=== PATIENT | male | born 1965 | race Hispanic/Latino ===

== ENCOUNTER 2016-12-06 02:02 | Inpatient (IN) | payer OTHER ==
[2016-12-06] MEDS ORDERED: DUONEB 0.5 MG-3 MG/3 ML SOLN IH ONE (02:21)
[2016-12-06 02:50] LABS: Basophils % (Auto) 1.2 % (0.0-1.8); Eosinophils % (Auto) 3.2 % (0.0-4.3); Hematocrit 42.3 % (35.5-45.6); Hemoglobin 14.1 gm/dl (11.8-15.2); Mean Corpuscular HGB Conc 33 % (32-34); Mean Corpuscular Hemoglobin 31 pg (28-32); Mean Corpuscular Volume 92 fl (84-94); Platelet Count 124 K/mm3 (140-440); Red Cell Distribution Width 15.7 % (13.2-15.2); White Blood Count 7.5 K/mm3 (4.5-11.0)
[2016-12-06 03:05] LABS: Anion Gap 20 mmol/L; BUN/Creatinine Ratio 11.81; Blood Urea Nitrogen 13 mg/dL (9-20); Calcium 9.2 mg/dL (8.4-10.2); Carbon Dioxide 22 mmol/L (22-30); Glucose 142 mg/dL (75-100); Potassium 3.3 mmol/L (3.6-5.0); Sodium 144 mmol/L (137-145)
[2016-12-06] MEDS ORDERED: BABY ASPIRIN PO ONE (07:21)
[2016-12-06] MEDS ORDERED: NITROSTAT SL PRN (07:21)
--- NOTE | 2016-12-06 07:33 | Emergency Department Report ---
ED Chest Pain HPI - General Chief Complaint: Chest Pain Stated Complaint: CHEST PAIN Time Seen by Provider: 12/06/16 07:14 Source: patient Mode of arrival: Wheelchair Limitations: No Limitations - History of Present Illness Initial Comments: 51-year-old male presents to the emergency department complaining of chest pain. Patient states he began having chest pain yesterday afternoon. He describes pressure sensation in the middle of his chest. He reports associated shortness of breath, nausea, and lightheadedness. He denies passing out. Patient also states that his legs have been swelling for the past 5 days. He states he has been out of his medication for approximately 2 weeks. Approximately one hour prior to my seeing the patient, he states that his chest pain became a lot worse and began radiating down his left arm. He continues to describe a pressure sensation. There are no other complaints. MD Complaint: chest pain -: Gradual, days(s) (1) Onset: during exertion Pain Location: substernal Pain Radiation: LUE Severity: moderate Severity scale (0 -10): 7 Quality: pressure Consistency: constant Improves With: nothing Worsens With: nothing re: nausea, dyspnea Treatments Prior to Arrival: none Aspirin use within the Past 7 Days: (0) No - Related Data Allergies Allergy/AdvReac Type Severity Reaction Status Date / Time No Known Allergies Allergy Verified 12/06/16 02:13 BLANE score - Blane Score Age > 65: (0) No Aspirin use within the Past 7 Days: (0) No 3 or more CAD Risk Factors: (1) Yes 2 or more Angina events in past 24 hrs: (1) Yes Known CAD with more than 50% Stenosis: (1) Yes Elevated Cardiac Markers: (0) No ST Deviation Greater than 0.5mm: (0) No BLANE Score: 3 ED Review of Systems ROS: Stated complaint: CHEST PAIN Other details as noted in HPI Comment: All other systems reviewed and negative Respiratory: shortness of breath Cardiovascular: chest pain, dyspnea on exertion, edema Gastrointestinal: nausea ED Past Medical Hx - Past Medical History Previous Medical History?: Yes Hx Hypertension: Yes Hx Congestive Heart Failure: Yes Hx Liver Disease: Yes Hx Psychiatric Treatment: Yes - Surgical History Past Surgical History?: Yes Hx Pacemaker: Yes - Family History Family history: no significant - Social History Smoking Status: Current Every Day Smoker Substance Use Type: Alcohol ED Physical Exam - General Limitations: No Limitations General appearance: alert, in distress (mild distress secondary to pain) - Head Head exam: Present: atraumatic, normocephalic - Eye Eye exam: Present: normal appearance, PERRL, EOMI - ENT ENT exam: Present: normal exam, normal orophraynx, mucous membranes moist - Neck Neck exam: Present: normal inspection, full ROM. Absent: tenderness - Respiratory Respiratory exam: Present: normal lung sounds bilaterally. Absent: respiratory distress - Cardiovascular Cardiovascular Exam: Present: normal rhythm, tachycardia, normal heart sounds - GI/Abdominal GI/Abdominal exam: Present: soft, normal bowel sounds. Absent: distended, tenderness - Extremities Exam Extremities exam: Present: normal inspection, full ROM, pedal edema (2+ pitting edema bilateral lower extremities to the pelvis. Scrotal edema noted.). Absent : tenderness - Back Exam Back exam: Present: normal inspection, full ROM. Absent: tenderness - Neurological Exam Neurological exam: Present: alert, oriented X3. Absent: motor sensory deficit - Skin Skin exam: Present: warm, dry, intact ED Course Vital Signs 12/06/16 12/06/16 12/06/16 02:13 02:40 02:53 Temperature 98.7 F Pulse Rate 107 H Pulse Rate [ 102 H 98 H Anterior Bilateral Throughout] Respiratory 22 Rate Respiratory 24 22 Rate [Anterior Bilateral Throughout] Blood Pressure 151/109 Blood Pressure [Left] O2 Sat by Pulse 95 Oximetry 12/06/16 12/06/16 12/06/16 04:46 04:55 04:57 Temperature 97.4 F L Pulse Rate 102 H 100 H Pulse Rate [ Anterior Bilateral Throughout] Respiratory 28 H 18 Rate Respiratory Rate [Anterior Bilateral Throughout] Blood Pressure 154/105 Blood Pressure [Left] O2 Sat by Pulse 94 96 97 Oximetry 12/06/16 12/06/16 12/06/16 05:00 05:30 06:00 Temperature Pulse Rate 102 H 101 H 101 H Pulse Rate [ Anterior Bilateral Throughout] Respiratory 18 13 22 Rate Respiratory Rate [Anterior Bilateral Throughout] Blood Pressure 154/107 155/110 155/104 Blood Pressure [Left] O2 Sat by Pulse 95 91 91 Oximetry 12/06/16 12/06/16 12/06/16 06:30 07:15 08:22 Temperature 98.1 F Pulse Rate 100 H 104 H 106 H Pulse Rate [ Anterior Bilateral Throughout] Respiratory 19 22 20 Rate Respiratory Rate [Anterior Bilateral Throughout] Blood Pressure 155/105 Blood Pressure 145/103 166/113 [Left] O2 Sat by Pulse 97 95 95 Oximetry 12/06/16 08:23 Temperature Pulse Rate 106 H Pulse Rate [ Anterior Bilateral Throughout] Respiratory Rate Respiratory Rate [Anterior Bilateral Throughout] Blood Pressure Blood Pressure [Left] O2 Sat by Pulse Oximetry ED Medical Decision Making - Lab Data Result diagrams: 12/06/16 02:27 12/06/16 02:27 - EKG Data -: EKG Interpreted by Me EKG shows normal: sinus rhythm, intervals, QRS complexes Rate: tachycardia - EKG Data When compared to previous EKG there are: previous EKG unavailable Interpretation: nonspecific ST-T wave eleno, other (left axis deviation) - Radiology Data Radiology results: report reviewed, image reviewed Chest x-ray shows cardiomegaly with mild CHF. - Medical Decision Making Lab and imaging results reviewed and discussed the patient. Patient reports pain is improved medication. Cardiology will be consulted and the patient is to be admitted by the hospitalist. - Differential Diagnosis CHF, ACS, AMI Critical care attestation.: If time is entered above; I have spent that time in minutes in the direct care of this critically ill patient, excluding procedure time. ED Disposition Clinical Impression: Acute exacerbation of CHF (congestive heart failure) Qualifiers: Congestive heart failure type: systolic Qualified Code(s): I50.23 - Acute on chronic systolic (congestive) heart failure Disposition: OP ADMITTED IP TO THIS HOSP Is pt being admited?: Yes Condition: Stable Referrals: PRIMARY CARE, [Primary Care Provider] - 3-5 Days Time of Disposition: 08:36
--- NOTE | 2016-12-06 07:51 | Admit Criteria Form ---
Admission Criteria Documentation: CHEST PAIN Clinical Indications for Admission to Inpatient Care (Place 'X' for any and all applicable criteria): Admission is indicated for chest pain and ANY ONE of the following(1)(2)(3)(4)(5 ): [ ]I. Angina with acute coronary syndrome (Also use Myocardial Infarction or Angina guideline) [ ]II. Hemodynamic instability [ x]III. Angina needing acute intervention as indicated by ALL of the following (11)(12): [ x]a) Unstable angina is present as indicated by angina that is ANY ONE of the following: [x ]i) New onset [ ]ii) Nocturnal [ ]iii) Prolonged at rest [ ]iv) Progressive [ x]b) Angina warrants acute intervention as indicated by ANY ONE of the following: [ ]i) Recurrent angina (e.g, not responding as previously to treatment) [ ]ii) Angina at rest or with low-level activities despite initial medical therapy [ ]iii) New or presumably new ST-segment depression on ECG [ ]iv) Signs or symptoms of heart failure (eg, dyspnea, pulmonary edema) [ ]v) New or worsening mitral regurgitation [ ]vi) Hemodynamic instability [ ]vii) Dangerous arrhythmia (eg, sustained ventricular tachycardia) [ ]viii) History of percutaneous coronary intervention within 6 months [ ]ix) History of coronary artery bypass graft surgery [x ]x) BLANE risk score of 2 or greater[A] [ ]xi) History of Diabetes(14) [ ]xii) High-risk cardiac ischemia findings on noninvasive testing (e.g, echocardiogram, treadmill testing, nuclear scan) [ ]xiii) Chronic renal insufficiency (ie, estimated GFR less than 60 mL/min/1.732m) [ ]xiv) Left ventricular ejection fraction less than 40% [ ]IV. Evidence of GA (eg, cardiac biomarkers positive, ST-segment elevation on ECG) also use Myocardial Infarction Criteria Form. [ ]V. Pulmonary edema [ ]. Respiratory distress [ ]VII. Chest pain indicative of serious diagnosis other than coronary artery disease (eg, aortic dissection) [ ]VIII. Contraindications and/or Inappropriate clinical situations for Observational Care in patients with Chest Pain, when ANY ONE of the following is required: [ ]a) Patient with risk factor for pulmonary embolism, acute coronary syndrome and myocardial infarction (18) [ ]b) Patient with Pulmonary embolism require an average LOS of 4.3 days, therefore emergency department observation management is inappropriate 18,23 [ ]c) Painful condition/s in the elderly, have the highest rate of recidivism after emergency department observation management (10.8%) 20,21,22 [ ]d) Elevated cardiac biomarker requires intensive and exhaustive care (19) [ ]IX. General contraindications and/or Inappropriate clinical situations for Observational Care in patients with Chest Pain, when ANY ONE of the following is required: [ ]a) Prediction of prolongation of LOS based on ANY ONE of the following may be considered as a contraindication for observational care 2, 3, 4, 5, 6, 7, 8, 9, 10, 11 [ ]i) Age > 65 yrs. [ ]ii) Patient arriving by ambulance [ ]iii) Patient with high acuity [ ]iv) Patient requiring vital sign monitoring [ ]v) Patient on IV medication [ ]b) Systolic blood pressures 180mmHg 3,12 [ ]c) Patient with altered mental status including delirium and other alteration of consciousness, (3) [ ]d) Patient whose discharge disposition will be to a nursing home home or rehabilitation home should not be managed in Emergency Department Observation Unit. CMS rule requires 3 days hospital stay before such placement. 3,13 [ ]e) Patient with failure to thrive due to broad array of etiologies 3,16,17 [ ]f) Inability to ambulate 3,14 Extended stay beyond goal length of stay may be needed for (1)(28): [ ]a) Specific condition diagnosed after evaluation (eg, pulmonary embolism, aortic dissection) [ ]b) Unstable angina [ ]c) Continued suspicion of acute coronary syndrome with inability to complete needed cardiac evaluation (eg, patient clinically unable to undergo stress testing) [ ]d) Myocardial infarction (Contents from ANGINA and CHEST PAIN clinical indications for admission to inpatient care have been integrated in this form) The original [employer] content created by [employer] has been revised. The portions of the content which have been revised are identified through the use of italic text or in bold, and [employer] [facility] has neither reviewed nor approved the modified material. All other unmodified content is copyright [employer]. Please see references footnoted in the original [employer] [facility] edition 2016 Admission Criteria Met: Yes
--- NOTE | 2016-12-06 07:54 | XRay Report ---
AP CHEST: HISTORY: Chest pain, difficulty in breathing No comparison. There is borderline heart size and pulmonary venous structures. A 2-lead pacemaker device is in place. The lungs are clear. No evidence for pneumonia, CHF or pneumothorax. IMPRESSION: Borderline to mild cardiomegaly and pulmonary venous congestion. Lungs clear.
[2016-12-06] MEDS ORDERED: MORPHINE IV ONE (08:11)
[2016-12-06] MEDS ORDERED: LASIX IV ONE (08:11)
[2016-12-06] MEDS ORDERED: PROVENTIL IH PRN (08:38)
[2016-12-06] MEDS ORDERED: ZOFRAN IV PRN (08:38)
[2016-12-06] MEDS ORDERED: DULCOLAX PR PRN (08:38)
[2016-12-06] MEDS ORDERED: MILK OF MAGNESIA PO PRN (08:38)
[2016-12-06] MEDS ORDERED: TYLENOL PO PRN (08:38)
[2016-12-06] MEDS ORDERED: K-DUR PO ONE (08:44)
[2016-12-06] MEDS: COREG PO SCH ×2 (10:00→21:16)
[2016-12-06] MEDS: PEPCID IV SCH ×2 (12:42→21:14)
[2016-12-06] MEDS: MORPHINE IV PRN ×3 (12:44→21:14)
[2016-12-06 13:17] LABS: Creatine Kinase MB 5.9 ng/mL (0.0-4.0)
[2016-12-06 13:34] LABS: Creatine Kinase 99 units/L (55-170)
[2016-12-06] MEDS: HEPARIN SUB-Q SCH ×2 (13:39→21:13)
--- NOTE | 2016-12-06 14:12 | Consultation ---
History of Present Illness Consult date: 12/06/16 Consult reason: congestive heart failure History of present illness: Patient is a 51yr old male who reports a history of coronary artery disease and dilated cardiomyopathy and is followed by [facility]. Patient reports a pacemaker insitu but a year ago had reached end of life. Patient reports he was told he is not a candidate for generator replacement. An echocardiogram done this admission shows a 4 chamber dilation, ejection fraction 10-15%. There was at least a moderate tricuspid regurgitation and severe pulmonary hypertension. He presents to the ED with complaints of chest pain, shortness of breath, lower extremity edema admitted with CHF exacerbation. Patient reports noncompliance with his medications. He also continues to smoke. A 12 lead ECG shows a sinus rhythm with nonspecific T wave abnormalities. Medications and Allergies Allergies Allergy/AdvReac Type Severity Reaction Status Date / Time No Known Allergies Allergy Verified 12/06/16 02:13 Active Meds: Active Medications Acetaminophen (Tylenol) 650 mg PO Q4H PRN PRN Reason: Pain MILD(1-3)/Fever >100.5/GURROLA Albuterol (Proventil) 2.5 mg IH Q3HRT PRN PRN Reason: Shortness Of Breath Bisacodyl (Dulcolax) 10 mg VT QDAY PRN PRN Reason: Constipation unrelieved by MOM Carvedilol (Coreg) 6.25 mg PO BID [facility] Last Admin: 12/06/16 10:00 Dose: 6.25 mg Famotidine (Pepcid) 20 mg IV BID [facility] Last Admin: 12/06/16 12:42 Dose: 20 mg Furosemide (Lasix) 40 mg IV BID@0600,1800 [facility] Heparin Sodium (Porcine) (Heparin) 5,000 unit SUB-Q Q12HR [facility] Last Admin: 12/06/16 13:39 Dose: 5,000 unit Magnesium Hydroxide (Milk Of Magnesia) 30 ml PO Q4H PRN PRN Reason: Constipation Morphine Sulfate (Morphine) 2 mg IV Q4H PRN PRN Reason: Pain, Moderate (4-6) Last Admin: 12/06/16 12:44 Dose: 2 mg Nitroglycerin (Nitrostat) 0.4 mg SL .Q5MIN PRN PRN Reason: Chest Pain Last Admin: 12/06/16 07:36 Dose: 0.4 mg Ondansetron HCl (Zofran) 4 mg IV Q8H PRN PRN Reason: N/V unrelieved by Reglan Physical Examination Vital Signs Temp Pulse Resp BP Pulse Ox 98.7 F 107 H 22 151/109 95 12/06/16 02:13 12/06/16 02:13 12/06/16 02:13 12/06/16 02:13 12/06/16 02:13 General appearance: no acute distress HEENT: Positive: PERRL Neck: Positive: trachea midline Cardiac: Positive: Reg Rate and Rhythm Results 12/06/16 02:27 12/06/16 02:27 Cardiac Enzymes 12/06/16 Range/Units 12:45 CK-MB (CK-2) 5.9 H (0.0-4.0) ng/mL Assessment and Plan Acute CHF exacerbation Hx of Dilated Cardiomyopathy EF 10-15% on echo this admission Hx of CAD Noncompliant with medications Tobacco abuse
--- NOTE | 2016-12-06 16:35 | History and Physical Report ---
History of Present Illness Date of examination: 12/06/16 Date of admission: 12/06/16 08:38 Chief complaint: Shortness of breath History of present illness: Patient's 51-year-old male with past medical history of coronary artery disease and ischemic cardiomyopathy EF 25% PER PT status post ICD unfortunately has been noncompliant with his medication had recently traveled to [place] and just returned and is currently homeless. He normally gets his care at [facility] and has had multiple coronary interventions and prior suicide [place] years ago. Patient presents to the ER with complaint of shortness of breath and chest pain which is a started the day prior to presentation. He describes as substernal and lasted 2-3 minutes. But also reports generalized leg swelling for the past 5 days. It was a neuropathy his medication almost 2 weeks ago. He does not recall the names of the medication. He reports dietary indiscretion. The chest pain he describes as a 5/4 over 10 in intensity. States that he does radiate down to his left arm. He describes as pressure in nature. Again he reports some shortness of breath and he is debilitated. He denies any chills denies any nausea or vomiting denies any diaphoresis denies any fever. ROS Constitutional: No fever, fatigue or weight loss. Skin: No rash. Eyes: No recent vision problems or eye pain. ENT: No congestion, ear pain, or sore throat. Endocrine: No thyroid problems. Cardiovascular: No chest pain. Respiratory: Shortness of breath but No cough, congestion, or wheezing. Gastrointestinal: No abdominal pain, nausea, vomiting, or diarrhea. Genitourinary: No dysuria. Musculoskeletal: No joint swelling but reports bilateral lower extremity swelling. Neurologic: No seizures. Hematologic: No unusual bruising or bleeding. Psychiatric: No psychiatric problems, hallucinations or depression. All other systems reviewed and otherwise negative. Past History Past Medical History: acute OR, CAD, hypertension, hyperlipidemia Past Surgical History: PTCA Social history: alcohol abuse, full code Family history: no significant family history Medications and Allergies Allergies Allergy/AdvReac Type Severity Reaction Status Date / Time No Known Allergies Allergy Verified 12/06/16 02:13 Active Meds: Active Medications Acetaminophen (Tylenol) 650 mg PO Q4H PRN PRN Reason: Pain MILD(1-3)/Fever >100.5/GURROLA Albuterol (Proventil) 2.5 mg IH Q3HRT PRN PRN Reason: Shortness Of Breath Bisacodyl (Dulcolax) 10 mg ID QDAY PRN PRN Reason: Constipation unrelieved by MOM Carvedilol (Coreg) 6.25 mg PO BID [facility] Last Admin: 12/06/16 10:00 Dose: 6.25 mg Famotidine (Pepcid) 20 mg IV BID [facility] Last Admin: 12/06/16 12:42 Dose: 20 mg Furosemide (Lasix) 40 mg IV BID@0600,1800 [facility] Heparin Sodium (Porcine) (Heparin) 5,000 unit SUB-Q Q12HR [facility] Last Admin: 12/06/16 13:39 Dose: 5,000 unit Milrinone Lactate 20 mg/ (Dextrose) 100 mls @ 9.95 mls/hr IV TITR [facility] PRN Reason: 0.375 MCG/KG/MIN Stop: 12/09/16 15:59 Influenza Virus Vaccine Quadrival (Fluarix Quad [id number](36 Mos+)) 60 mcg IM .ONCE ONE Stop: 12/07/16 12:01 Isosorbide Mononitrate (Imdur) 30 mg PO QDAY [facility] Lisinopril (Zestril) 10 mg PO QDAY [facility] Magnesium Hydroxide (Milk Of Magnesia) 30 ml PO Q4H PRN PRN Reason: Constipation Morphine Sulfate (Morphine) 2 mg IV Q4H PRN PRN Reason: Pain, Moderate (4-6) Last Admin: 12/06/16 12:44 Dose: 2 mg Nitroglycerin (Nitrostat) 0.4 mg SL .Q5MIN PRN PRN Reason: Chest Pain Last Admin: 12/06/16 07:36 Dose: 0.4 mg Ondansetron HCl (Zofran) 4 mg IV Q8H PRN PRN Reason: N/V unrelieved by Reglan Pneumococcal Polyvalent Vaccine (Pneumovax 23) 0.5 ml IM .ONCE ONE Stop: 12/07/16 12:01 Potassium Chloride (K-Dur) 40 meq PO QDAY [facility] Simvastatin (Zocor) 40 mg PO QHS [facility] Exam - Physical Exam Narrative exam: VITAL SIGNS: Reviewed. GENERAL: The patient appeared well nourished and normally developed. Vital signs as documented. HEAD: No signs of head trauma. EYES: Pupils are equal. Extraocular motions intact. EARS: Hearing grossly intact. MOUTH: Oropharynx is normal. NECK: No adenopathy,+ JVD. CHEST: Chest with crackles breath sounds bilaterally. No wheezes, rales, or rhonchi. CARDIAC: Regular rate and rhythm. S1 and S2, without murmurs, gallops, or rubs. VASCULAR: 2+ pitting Edema. Peripheral pulses normal and equal in all extremities. ABDOMEN: Soft, without detectable tenderness. No sign of distention. No rebound or guarding, and no masses palpated. Bowel Sounds normal. MUSCULOSKELETAL: Good range of motion of all major joints. Extremities without clubbing, cyanosis. 2+ pitting edema. NEUROLOGIC EXAM: Alert and oriented x 3. No focal sensory or strength deficits. Speech normal. Follows commands. PSYCHIATRIC: Mood normal. SKIN: Chronic changes of the nailbeds - Constitutional Vitals: Temp Pulse Resp BP Pulse Ox 97.5 F L 85 20 141/99 95 12/06/16 13:26 12/06/16 14:28 12/06/16 13:26 12/06/16 13:26 12/06/16 13:26 Results - Labs CBC & Chem 7: 12/06/16 02:27 12/06/16 02:27 Labs: Laboratory Last Values WBC 7.5 K/mm3 (4.5-11.0) 12/06/16 02:27 RBC 4.60 M/mm3 (3.65-5.03) 12/06/16 02:27 Hgb 14.1 gm/dl (11.8-15.2) 12/06/16 02:27 Hct 42.3 % (35.5-45.6) 12/06/16 02:27 MCV 92 fl (84-94) 12/06/16 02:27 MCH 31 pg (28-32) 12/06/16 02:27 MCHC 33 % (32-34) 12/06/16 02:27 RDW 15.7 % (13.2-15.2) H 12/06/16 02:27 Plt Count 124 K/mm3 (140-440) L 12/06/16 02:27 Lymph % (Auto) 24.8 % (13.4-35.0) 12/06/16 02:27 [place] % (Auto) 10.3 % (0.0-7.3) H 12/06/16 02:27 Eos % (Auto) 3.2 % (0.0-4.3) 12/06/16 02:27 Baso % (Auto) 1.2 % (0.0-1.8) 12/06/16 02:27 Lymph # 1.9 K/mm3 (1.2-5.4) 12/06/16 02:27 [place] # 0.8 K/mm3 (0.0-0.8) 12/06/16 02:27 Eos # 0.2 K/mm3 (0.0-0.4) 12/06/16 02:27 Baso # 0.1 K/mm3 (0.0-0.1) 12/06/16 02:27 Seg Neutrophils % 60.5 % (40.0-70.0) 12/06/16 02:27 Seg Neutrophils # 4.5 K/mm3 (1.8-7.7) 12/06/16 02:27 Sodium 144 mmol/L (137-145) 12/06/16 02:27 Potassium 3.3 mmol/L (3.6-5.0) L 12/06/16 02:27 Chloride 105.0 mmol/L (98-107) 12/06/16 02:27 Carbon Dioxide 22 mmol/L (22-30) 12/06/16 02:27 Anion Gap 20 mmol/L 12/06/16 02:27 BUN 13 mg/dL (9-20) 12/06/16 02:27 Creatinine 1.1 mg/dL (0.8-1.5) 12/06/16 02:27 Estimated GFR > 60 ml/min 12/06/16 02:27 BUN/Creatinine Ratio 11.81 % 12/06/16 02:27 Glucose 142 mg/dL (75-100) H 12/06/16 02:27 Calcium 9.2 mg/dL (8.4-10.2) 12/06/16 02:27 Total Creatine Kinase 99 units/L (55-170) 12/06/16 12:45 CK-MB (CK-2) 5.9 ng/mL (0.0-4.0) H 12/06/16 12:45 CK-MB (CK-2) Rel Index 5.9 (0-4) H 12/06/16 12:45 Troponin T < 0.010 ng/mL (0.00-0.029) 12/06/16 12:45 NT-Pro-B Natriuret Pep 1094 pg/mL (0-900) H 12/06/16 02:27 - Imaging and Cardiology Chest x-ray: image reviewed (vascular congestion) Assessment and Plan Assessment and plan: Patient's 51-year-old male with past medical history of coronary artery disease and ischemic cardiomyopathy EF 25% PER PT status post ICD unfortunately has been noncompliant with his medication had recently traveled to [place] and just returned and is currently homeless. He normally gets his care at [facility] and has had multiple coronary interventions and prior suicide [place] years ago. Patient presents to the ER with complaint of shortness of breath and chest pain which is a started the day prior to presentation. He describes as substernal and lasted 2-3 minutes. But also reports generalized leg swelling for the past 5 days. It was a neuropathy his medication almost 2 weeks ago. He does not recall the names of the medication. He reports dietary indiscretion. The chest pain he describes as a 5/4 over 10 in intensity. States that he does radiate down to his left arm. He describes as pressure in nature. Again he reports some shortness of breath and he is debilitated. He denies any chills denies any nausea or vomiting denies any diaphoresis denies any fever. * Acute on chronic systolic congestive heart failure with exacerbation last known EF 10-15% * Ischemic cardiomyopathy * CAD * Tobacco abuse * Noncompliance * Hypokalemia * Thrombocytopenia Plan * Start patient on aggressive management with diuretics, beta anthony and VICK inhibitor * We'll obtain cardiology consultation * ECHOcardiogram * Replace potassium * Status of counseling against tobacco use discussed with the patient. He denies alcohol abuse. 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
[2016-12-06] MEDS: LASIX IV SCH (17:25)
[2016-12-06] MEDS: PRIMACOR 20 MG in D5W 80 ML IV SCH (20:00)
[2016-12-06 20:08] LABS: Creatine Kinase MB 5.3 ng/mL (0.0-4.0)
[2016-12-06 20:10] LABS: Creatine Kinase 83 units/L (55-170)
[2016-12-06] MEDS: ZOCOR PO SCH (21:15)
[2016-12-07] MEDS: MORPHINE IV PRN ×4 (01:33→22:53)
[2016-12-07] MEDS: PRIMACOR 20 MG in D5W 80 ML IV SCH ×2 (05:19→14:57)
[2016-12-07] MEDS: LASIX IV SCH ×2 (05:19→18:20)
[2016-12-07 07:57] LABS: Basophils % (Auto) 0.9 % (0.0-1.8); Eosinophils % (Auto) 4.4 % (0.0-4.3); Hematocrit 39.7 % (35.5-45.6); Hemoglobin 13.1 gm/dl (11.8-15.2); Mean Corpuscular HGB Conc 33 % (32-34); Mean Corpuscular Hemoglobin 31 pg (28-32); Mean Corpuscular Volume 93 fl (84-94); Platelet Count 108 K/mm3 (140-440); Red Blood Count 4.28 M/mm3 (3.65-5.03); Red Cell Distribution Width 15.6 % (13.2-15.2); White Blood Count 6.8 K/mm3 (4.5-11.0)
[2016-12-07 08:19] LABS: BUN/Creatinine Ratio 15.45; Blood Urea Nitrogen 17 mg/dL (9-20); Calcium 8.8 mg/dL (8.4-10.2); Carbon Dioxide 27 mmol/L (22-30); Glucose 103 mg/dL (75-100)
[2016-12-07 08:20] LABS: Anion Gap 16 mmol/L; Chloride 101.7 mmol/L (98-107); Potassium 3.4 mmol/L (3.6-5.0); Sodium 141 mmol/L (137-145)
--- NOTE | 2016-12-07 08:52 | XRay Report ---
Portable chest: CHF AP view demonstrates a borderline sized heart. There is minimal if any vascular congestion. There is a bipolar pacemaker with intact wires. The lungs are generally clear of any nodule or infiltrate. Compared to prior study of December 06 there has been improvement in the vascular pattern. Impression: Resolving CHF. Questionable mild residual.
[2016-12-07] MEDS: IMDUR PO SCH (09:05)
[2016-12-07] MEDS: ZESTRIL PO SCH (09:05)
[2016-12-07] MEDS: HEPARIN SUB-Q SCH ×2 (09:06→22:53)
[2016-12-07] MEDS: K-DUR PO SCH (09:06)
[2016-12-07] MEDS: PEPCID IV SCH ×2 (09:07→22:52)
[2016-12-07] MEDS: COREG PO SCH ×2 (09:08→22:52)
[2016-12-07] MEDS ORDERED: K-DUR PO SCH (10:00)
--- NOTE | 2016-12-07 10:02 | Progress Note ---
Assessment and Plan Acute systolic heart failure Ischemic cardiomyopathy, LVEF 10-15% CAD s/p multiple PCIs Cath ~ 1 year ago reported moderate residual disease recommended for medical therapy Severe pulmonary hypertension Permanent pacemaker Non-compliance Recommendations: Continue IV diuresis and IV milrinone Neg Is and Os last 24 hours Patient remains hypervolemic on exam Subjective Date of service: 12/07/16 Principal diagnosis: CHF Interval history: Patient is stable, no events overnight Objective Vital Signs Temp Pulse Pulse Resp BP BP Pulse Ox 12/07/16 08:00 97.8 F 92 H 20 145/75 89 12/07/16 04:25 98.6 F 66 18 114/68 95 12/07/16 00:20 98.2 F 84 20 122/68 12/06/16 21:28 100 12/06/16 20:25 97.3 F L 109 H 24 133/89 99 12/06/16 17:25 24 12/06/16 16:17 22 12/06/16 16:00 97.6 F 88 20 143/84 95 12/06/16 14:28 85 12/06/16 13:26 97.5 F L 99 H 20 141/99 95 12/06/16 10:56 100 H 20 154/109 95 - Physical Examination HEENT: Positive: PERRL Neck: Positive: trachea midline, JVD/HJR Cardiac: Positive: Reg Rate and Rhythm Lungs: Positive: Decreased Breath Sounds, Wheezes - Labs and Meds Cardiac Enzymes 12/06/16 12/06/16 Range/Units 12:45 19:12 CK-MB (CK-2) 5.9 H 5.3 H (0.0-4.0) ng/mL CBC 12/07/16 Range/Units 07:17 WBC 6.8 (4.5-11.0) K/mm3 RBC 4.28 (3.65-5.03) M/mm3 Hgb 13.1 (11.8-15.2) gm/dl Hct 39.7 (35.5-45.6) % Plt Count 108 L (140-440) K/mm3 Lymph # 2.1 (1.2-5.4) K/mm3 [place] # 0.8 (0.0-0.8) K/mm3 Eos # 0.3 (0.0-0.4) K/mm3 Baso # 0.1 (0.0-0.1) K/mm3 Comprehensive Metabolic Panel 12/07/16 Range/Units 07:17 Sodium 141 (137-145) mmol/L Potassium 3.4 L (3.6-5.0) mmol/L Chloride 101.7 (98-107) mmol/L Carbon Dioxide 27 (22-30) mmol/L BUN 17 (9-20) mg/dL Creatinine 1.1 (0.8-1.5) mg/dL Glucose 103 H (75-100) mg/dL Calcium 8.8 (8.4-10.2) mg/dL
[2016-12-07] MEDS ORDERED: FLUARIX QUAD 2016-2017(36 MOS+) IM ONE (12:00)
[2016-12-07] MEDS ORDERED: PNEUMOVAX 23 IM ONE (12:00)
--- NOTE | 2016-12-07 16:08 | Progress Note ---
Assessment and Plan Assessment and plan: Patient's 51-year-old male with past medical history of coronary artery disease and ischemic cardiomyopathy EF 25% PER PT status post ICD unfortunately has been noncompliant with his medication had recently traveled to [place] and just returned and is currently homeless. He normally gets his care at [facility] and has had multiple coronary interventions and prior suicide [place] years ago. Patient presents to the ER with complaint of shortness of breath and chest pain which is a started the day prior to presentation. He describes as substernal and lasted 2-3 minutes. But also reports generalized leg swelling for the past 5 days. It was a neuropathy his medication almost 2 weeks ago. He does not recall the names of the medication. He reports dietary indiscretion. The chest pain he describes as a 5/4 over 10 in intensity. States that he does radiate down to his left arm. He describes as pressure in nature. Again he reports some shortness of breath and he is debilitated. He denies any chills denies any nausea or vomiting denies any diaphoresis denies any fever. * Acute on chronic systolic congestive heart failure with exacerbation last known EF 10-15% * Ischemic cardiomyopathy * CAD * Tobacco abuse * Noncompliance * Hypokalemia * Thrombocytopenia Plan * Continue aggressive management with diuretics, beta anthony and VICK inhibitor * Cardiology input noted. Milrione added * Replace potassium * extensive counseling against tobacco use discussed with the patient. He denies alcohol abuse. * continue CHF pathway, daily weights, strict ins and outs * Diabetic education With assistant passenger locomotive engineer * dvt/gi prophy History Interval history: Patient seen and examined this morning and reports improvement quite at baseline. States a "I am beginning to Pee it all out". No other adverse events reported by nursing staff Hospitalist Physical - Physical exam Narrative exam: VITAL SIGNS: Reviewed. GENERAL: The patient appeared well nourished and normally developed. Vital signs as documented. HEAD: No signs of head trauma. EYES: Pupils are equal. Extraocular motions intact. EARS: Hearing grossly intact. MOUTH: Oropharynx is normal. NECK: No adenopathy,+ JVD. CHEST: Chest with crackles breath sounds bilaterally. No wheezes, rales, or rhonchi. CARDIAC: Regular rate and rhythm. S1 and S2, without murmurs, gallops, or rubs. VASCULAR: 2+ pitting Edema. Peripheral pulses normal and equal in all extremities. ABDOMEN: Soft, without detectable tenderness. No sign of distention. No rebound or guarding, and no masses palpated. Bowel Sounds normal. MUSCULOSKELETAL: Good range of motion of all major joints. Extremities without clubbing, cyanosis. 2+ pitting edema. NEUROLOGIC EXAM: Alert and oriented x 3. No focal sensory or strength deficits. Speech normal. Follows commands. PSYCHIATRIC: Mood normal. SKIN: Chronic changes of the nailbeds - Constitutional Vitals: Temp Pulse Resp BP Pulse Ox 97.5 F L 82 20 104/47 95 12/07/16 12:00 12/07/16 12:00 12/07/16 12:00 12/07/16 12:00 12/07/16 12:00 General appearance: Present: no acute distress Results - Labs CBC & Chem 7: 12/07/16 07:17 12/07/16 07:17 Labs: Laboratory Last Values WBC 6.8 K/mm3 (4.5-11.0) 12/07/16 07: RBC 4.28 M/mm3 (3.65-5.03) 12/07/16 07:17 Hgb 13.1 gm/dl (11.8-15.2) 12/07/16 07:17 Hct 39.7 % (35.5-45.6) 12/07/16 07:17 MCV 93 fl (84-94) 12/07/16 07:17 MCH 31 pg (28-32) 12/07/16 07:17 MCHC 33 % (32-34) 12/07/16 07:17 RDW 15.6 % (13.2-15.2) H 12/07/16 07:17 Plt Count 108 K/mm3 (140-440) L 12/07/16 07:17 Lymph % (Auto) 30.9 % (13.4-35.0) 12/07/16 07:17 [place] % (Auto) 11.4 % (0.0-7.3) H 12/07/16 07:17 Eos % (Auto) 4.4 % (0.0-4.3) H 12/07/16 07:17 Baso % (Auto) 0.9 % (0.0-1.8) 12/07/16 07:17 Lymph # 2.1 K/mm3 (1.2-5.4) 12/07/16 07:17 [place] # 0.8 K/mm3 (0.0-0.8) 12/07/16 07:17 Eos # 0.3 K/mm3 (0.0-0.4) 12/07/16 07:17 Baso # 0.1 K/mm3 (0.0-0.1) 12/07/16 07:17 Seg Neutrophils % 52.4 % (40.0-70.0) 12/07/16 07:17 Seg Neutrophils # 3.6 K/mm3 (1.8-7.7) 12/07/16 07:17 Sodium 141 mmol/L (137-145) 12/07/16 07:17 Potassium 3.4 mmol/L (3.6-5.0) L 12/07/16 07:17 Chloride 101.7 mmol/L (98-107) 12/07/16 07:17 Carbon Dioxide 27 mmol/L (22-30) 12/07/16 07:17 Anion Gap 16 mmol/L 12/07/16 07:17 BUN 17 mg/dL (9-20) 12/07/16 07:17 Creatinine 1.1 mg/dL (0.8-1.5) 12/07/16 07:17 Estimated GFR > 60 ml/min 12/07/16 07:17 BUN/Creatinine Ratio 15.45 % 12/07/16 07:17 Glucose 103 mg/dL (75-100) H 12/07/16 07:17 Hemoglobin A1c 5.4 % (4-6) 12/06/16 19:12 Calcium 8.8 mg/dL (8.4-10.2) 12/07/16 07:17 Total Creatine Kinase 83 units/L (55-170) 12/06/16 19:12 CK-MB (CK-2) 5.3 ng/mL (0.0-4.0) H 12/06/16 19:12 CK-MB (CK-2) Rel Index 6.3 (0-4) H 12/06/16 19:12 Troponin T < 0.010 ng/mL (0.00-0.029) 12/06/16 19:12 NT-Pro-B Natriuret Pep 1094 pg/mL (0-900) H 12/06/16 02:27
[2016-12-07] MEDS: ZOCOR PO SCH (22:53)
[2016-12-08] MEDS: PRIMACOR 20 MG in D5W 80 ML IV SCH ×3 (01:19→20:42)
[2016-12-08] MEDS: AMBIEN PO PRN ×2 (01:20→22:01)
[2016-12-08 05:06] LABS: Hematocrit 40.6 % (35.5-45.6); Hemoglobin 13.3 gm/dl (11.8-15.2); Mean Corpuscular HGB Conc 33 % (32-34); Mean Corpuscular Hemoglobin 31 pg (28-32); Mean Corpuscular Volume 94 fl (84-94); Platelet Count 118 K/mm3 (140-440); Red Blood Count 4.34 M/mm3 (3.65-5.03); Red Cell Distribution Width 15.8 % (13.2-15.2)
[2016-12-08 05:33] LABS: Anion Gap 18 mmol/L; Blood Urea Nitrogen 17 mg/dL (9-20); Calcium 8.3 mg/dL (8.4-10.2); Carbon Dioxide 27 mmol/L (22-30); Chloride 103.1 mmol/L (98-107); Glucose 92 mg/dL (75-100); Potassium 3.6 mmol/L (3.6-5.0); Sodium 144 mmol/L (137-145)
[2016-12-08 05:38] LABS: BUN/Creatinine Ratio 15.45
[2016-12-08] MEDS: LASIX IV SCH ×2 (06:30→17:18)
[2016-12-08] MEDS: ZESTRIL PO SCH (09:52)
[2016-12-08] MEDS: COREG PO SCH ×2 (09:52→22:01)
[2016-12-08] MEDS: IMDUR PO SCH (09:52)
[2016-12-08] MEDS: K-DUR PO SCH (09:52)
[2016-12-08] MEDS: HEPARIN SUB-Q SCH ×2 (09:53→22:03)
[2016-12-08] MEDS: PEPCID IV SCH ×2 (09:53→22:03)
[2016-12-08] MEDS: MORPHINE IV PRN ×2 (11:11→20:39)
--- NOTE | 2016-12-08 11:36 | Progress Note ---
Subjective Date of service: 12/08/16 Principal diagnosis: CHF Interval history: Acute systolic heart failure Ischemic cardiomyopathy, LVEF 10-15% CAD s/p multiple PCIs Cath ~ 1 year ago reported moderate residual disease recommended for medical therapy Severe pulmonary hypertension Permanent pacemaker Non-compliance Recommendations: Continue IV diuresis and IV milrinone Neg Is and Os last 24 hours Patient remains hypervolemic on exam Objective Vital Signs Temp Pulse Pulse Resp BP BP Pulse Ox 12/08/16 11:31 90 12/08/16 08:00 98.0 F 82 20 108/71 93 12/08/16 04:00 98.0 F 79 18 102/69 98 12/08/16 00:00 97.9 F 78 18 108/57 97 12/07/16 22:52 88 98/50 12/07/16 22:00 20 94 12/07/16 20:00 98.3 F 88 18 98/50 98 12/07/16 16:00 98.9 F 81 18 109/62 95 12/07/16 12:00 97.5 F L 82 20 104/47 95 - Physical Examination General: No Apparent Distress HEENT: Positive: PERRL Neck: Positive: trachea midline, JVD/HJR Cardiac: Positive: Reg Rate and Rhythm, S1/S2 Lungs: Positive: Decreased Breath Sounds - Labs and Meds CBC 12/08/16 Range/Units 04:43 WBC 6.0 (4.5-11.0) K/mm3 RBC 4.34 (3.65-5.03) M/mm3 Hgb 13.3 (11.8-15.2) gm/dl Hct 40.6 (35.5-45.6) % Plt Count 118 L (140-440) K/mm3 Comprehensive Metabolic Panel 12/08/16 Range/Units 04:43 Sodium 144 (137-145) mmol/L Potassium 3.6 (3.6-5.0) mmol/L Chloride 103.1 (98-107) mmol/L Carbon Dioxide 27 (22-30) mmol/L BUN 17 (9-20) mg/dL Creatinine 1.1 (0.8-1.5) mg/dL Glucose 92 (75-100) mg/dL Calcium 8.3 L (8.4-10.2) mg/dL
--- NOTE | 2016-12-08 16:33 | Progress Note ---
Assessment and Plan Assessment and plan: Patient's 51-year-old male with past medical history of coronary artery disease and ischemic cardiomyopathy EF 25% PER PT status post ICD unfortunately has been noncompliant with his medication had recently traveled to [place] and just returned and is currently homeless. He normally gets his care at [facility] and has had multiple coronary interventions and prior suicide [place] years ago. Patient presents to the ER with complaint of shortness of breath and chest pain which is a started the day prior to presentation. He describes as substernal and lasted 2-3 minutes. But also reports generalized leg swelling for the past 5 days. It was a neuropathy his medication almost 2 weeks ago. He does not recall the names of the medication. He reports dietary indiscretion. The chest pain he describes as a 5/4 over 10 in intensity. States that he does radiate down to his left arm. He describes as pressure in nature. Again he reports some shortness of breath and he is debilitated. He denies any chills denies any nausea or vomiting denies any diaphoresis denies any fever. * Acute on chronic systolic congestive heart failure with exacerbation last known EF 10-15% * Ischemic cardiomyopathy * CAD * Tobacco abuse * Noncompliance * Hypokalemia-resolved * Thrombocytopenia Plan * Continue aggressive management with diuretics, beta anthony and VICK inhibitor * Cardiology input noted. Milrione continued * extensive counseling against tobacco use discussed with the patient. He denies alcohol abuse. * continue CHF pathway, daily weights, strict ins and outs -neg fluid balance noted * Diabetic education With dragline operator * dvt/gi prophy History Interval history: Patient seen and examined this morning and reports improvement not quite at baseline. No other adverse events reported by nursing staff Hospitalist Physical - Physical exam Narrative exam: VITAL SIGNS: Reviewed. GENERAL: The patient appeared well nourished and normally developed. Vital signs as documented. HEAD: No signs of head trauma. EYES: Pupils are equal. Extraocular motions intact. EARS: Hearing grossly intact. MOUTH: Oropharynx is normal. NECK: No adenopathy,+ JVD. CHEST: Chest with crackles breath sounds bilaterally. No wheezes, rales, or rhonchi. CARDIAC: Regular rate and rhythm. S1 and S2, without murmurs, gallops, or rubs. VASCULAR: 1+ pitting Edema. Peripheral pulses normal and equal in all extremities. ABDOMEN: Soft, without detectable tenderness. No sign of distention. No rebound or guarding, and no masses palpated. Bowel Sounds normal. MUSCULOSKELETAL: Good range of motion of all major joints. Extremities without clubbing, cyanosis. 1+ pitting edema. NEUROLOGIC EXAM: Alert and oriented x 3. No focal sensory or strength deficits. Speech normal. Follows commands. PSYCHIATRIC: Mood normal. SKIN: Chronic changes of the nailbeds - Constitutional Vitals: Temp Pulse Resp BP Pulse Ox 98.0 F 90 20 108/71 95 12/08/16 08:00 12/08/16 11:31 12/08/16 08:00 12/08/16 08:00 12/08/16 10:00 General appearance: Present: no acute distress Results - Labs CBC & Chem 7: 12/08/16 04:43 12/08/16 04:43 Labs: Laboratory Last Values WBC 6.0 K/mm3 (4.5-11.0) 12/08/16 04:43 RBC 4.34 M/mm3 (3.65-5.03) 12/08/16 04:43 Hgb 13.3 gm/dl (11.8-15.2) 12/08/16 04:43 Hct 40.6 % (35.5-45.6) 12/08/16 04:43 MCV 94 fl (84-94) 12/08/16 04:43 MCH 31 pg (28-32) 12/08/16 04:43 MCHC 33 % (32-34) 12/08/16 04:43 RDW 15.8 % (13.2-15.2) H 12/08/16 04:43 Plt Count 118 K/mm3 (140-440) L 12/08/16 04:43 Lymph % (Auto) 30.9 % (13.4-35.0) 12/07/16 07:17 [place] % (Auto) 11.4 % (0.0-7.3) H 12/07/16 07:17 Eos % (Auto) 4.4 % (0.0-4.3) H 12/07/16 07:17 Baso % (Auto) 0.9 % (0.0-1.8) 12/07/16 07:17 Lymph # 2.1 K/mm3 (1.2-5.4) 12/07/16 07:17 [place] # 0.8 K/mm3 (0.0-0.8) 12/07/16 07:17 Eos # 0.3 K/mm3 (0.0-0.4) 12/07/16 07: Baso # 0.1 K/mm3 (0.0-0.1) 12/07/16 07:17 Seg Neutrophils % 52.4 % (40.0-70.0) 12/07/16 07:17 Seg Neutrophils # 3.6 K/mm3 (1.8-7.7) 12/07/16 07:17 Sodium 144 mmol/L (137-145) 12/08/16 04:43 Potassium 3.6 mmol/L (3.6-5.0) 12/08/16 04:43 Chloride 103.1 mmol/L (98-107) 12/08/16 04:43 Carbon Dioxide 27 mmol/L (22-30) 12/08/16 04:43 Anion Gap 18 mmol/L 12/08/16 04:43 BUN 17 mg/dL (9-20) 12/08/16 04:43 Creatinine 1.1 mg/dL (0.8-1.5) 12/08/16 04:43 Estimated GFR > 60 ml/min 12/08/16 04:43 BUN/Creatinine Ratio 15.45 % 12/08/16 04:43 Glucose 92 mg/dL (75-100) 12/08/16 04:43 Hemoglobin A1c 5.4 % (4-6) 12/06/16 19:12 Calcium 8.3 mg/dL (8.4-10.2) L 12/08/16 04:43 Total Creatine Kinase 83 units/L (55-170) 12/06/16 19:12 CK-MB (CK-2) 5.3 ng/mL (0.0-4.0) H 12/06/16 19:12 CK-MB (CK-2) Rel Index 6.3 (0-4) H 12/06/16 19:12 Troponin T < 0.010 ng/mL (0.00-0.029) 12/06/16 19:12 NT-Pro-B Natriuret Pep 1094 pg/mL (0-900) H 12/06/16 02:27
[2016-12-08] MEDS: ZOCOR PO SCH (22:01)
[2016-12-09] MEDS: MORPHINE IV PRN ×5 (01:34→22:56)
[2016-12-09] MEDS: PRIMACOR 20 MG in D5W 80 ML IV SCH ×2 (06:13→17:28)
[2016-12-09] MEDS: LASIX IV SCH ×2 (06:14→17:33)
[2016-12-09] MEDS: ZESTRIL PO SCH (10:02)
[2016-12-09] MEDS: IMDUR PO SCH (10:02)
[2016-12-09] MEDS: PEPCID IV SCH ×2 (10:02→22:01)
[2016-12-09] MEDS: K-DUR PO SCH (10:03)
[2016-12-09] MEDS: COREG PO SCH ×2 (10:03→22:00)
[2016-12-09] MEDS: HEPARIN SUB-Q SCH ×2 (10:04→22:01)
--- NOTE | 2016-12-09 11:16 | Progress Note ---
Subjective Date of service: 12/09/16 Principal diagnosis: CHF Interval history: looks much better today Acute systolic heart failure Ischemic cardiomyopathy, LVEF 10-15% CAD s/p multiple PCIs Cath ~ 1 year ago reported moderate residual disease recommended for medical therapy Severe pulmonary hypertension Permanent pacemaker Non-compliance Recommendations: Continue IV diuresis and IV milrinone Neg Is and Os last 24 hours Patient remains hypervolemic on exam Objective Vital Signs Temp Pulse Pulse Resp BP BP Pulse Ox 12/09/16 07:40 74 12/09/16 06:00 98.0 F 81 18 103/59 98 12/09/16 00:00 98.2 F 84 18 112/64 97 12/08/16 23:00 89 12/08/16 22:01 88 108/79 12/08/16 22:00 96 12/08/16 20:00 97.9 F 88 18 108/79 97 12/08/16 16:45 98.2 F 78 22 96/55 94 12/08/16 11:31 90 - Physical Examination General: No Apparent Distress HEENT: Positive: PERRL Neck: Positive: trachea midline, JVD/HJR Cardiac: Positive: Reg Rate and Rhythm, S1/S2 Lungs: Positive: Normal Exam Abdomen: Positive: Soft
--- NOTE | 2016-12-09 15:02 | Progress Note ---
Assessment and Plan Assessment and plan: Patient's 51-year-old male with past medical history of coronary artery disease and ischemic cardiomyopathy EF 25% PER PT status post ICD unfortunately has been noncompliant with his medication had recently traveled to [place] and just returned and is currently homeless. He normally gets his care at [facility] and has had multiple coronary interventions and prior suicide [place] years ago. Patient presents to the ER with complaint of shortness of breath and chest pain which is a started the day prior to presentation. He describes as substernal and lasted 2-3 minutes. But also reports generalized leg swelling for the past 5 days. It was a neuropathy his medication almost 2 weeks ago. He does not recall the names of the medication. He reports dietary indiscretion. The chest pain he describes as a 5/4 over 10 in intensity. States that he does radiate down to his left arm. He describes as pressure in nature. Again he reports some shortness of breath and he is debilitated. He denies any chills denies any nausea or vomiting denies any diaphoresis denies any fever. * Acute on chronic systolic congestive heart failure with exacerbation last known EF 10-15% * Ischemic cardiomyopathy * CAD * Tobacco abuse * Noncompliance * Hypokalemia-resolved * Thrombocytopenia Plan * Continue aggressive management with diuretics, beta anthony and VICK inhibitor * Cardiology input noted. Milrione continued. Patient was improved and edema has significantly decreased. Anticipate discharge in the next 24-48 hour's * extensive counseling against tobacco use discussed with the patient. He denies alcohol abuse. * continue CHF pathway, daily weights, strict ins and outs -neg fluid balance noted * Diabetic education With college admissions counselor * dvt/gi prophy History Interval history: Patient seen and examined this morning and reports improvement. No other adverse events reported by nursing staff, ambulated in the room, moving bowels. No nausea no vomiting no diarrhea. Hospitalist Physical - Physical exam Narrative exam: VITAL SIGNS: Reviewed. GENERAL: The patient appeared well nourished and normally developed. Vital signs as documented. HEAD: No signs of head trauma. EYES: Pupils are equal. Extraocular motions intact. EARS: Hearing grossly intact. MOUTH: Oropharynx is normal. NECK: No adenopathy,+ JVD. CHEST: Chest with crackles breath sounds bilaterally. No wheezes, rales, or rhonchi. CARDIAC: Regular rate and rhythm. S1 and S2, without murmurs, gallops, or rubs. VASCULAR: 1+ pitting Edema. Peripheral pulses normal and equal in all extremities. ABDOMEN: Soft, without detectable tenderness. No sign of distention. No rebound or guarding, and no masses palpated. Bowel Sounds normal. MUSCULOSKELETAL: Good range of motion of all major joints. Extremities without clubbing, cyanosis. 1+ pitting edema. NEUROLOGIC EXAM: Alert and oriented x 3. No focal sensory or strength deficits. Speech normal. Follows commands. PSYCHIATRIC: Mood normal. SKIN: Chronic changes of the nailbeds - Constitutional Vitals: Temp Pulse Resp BP Pulse Ox 97.4 F L 83 16 118/85 96 12/09/16 12:05 12/09/16 12:05 12/09/16 12:05 12/09/16 12:05 12/09/16 10:00 General appearance: Present: no acute distress Results - Labs CBC & Chem 7: 12/08/16 04:43 12/08/16 04:43 Labs: Laboratory Last Values WBC 6.0 K/mm3 (4.5-11.0) 12/08/16 04:43 RBC 4.34 M/mm3 (3.65-5.03) 12/08/16 04:43 Hgb 13.3 gm/dl (11.8-15.2) 12/08/16 04:43 Hct 40.6 % (35.5-45.6) 12/08/16 04:43 MCV 94 fl (84-94) 12/08/16 04:43 MCH 31 pg (28-32) 12/08/16 04:43 MCHC 33 % (32-34) 12/08/16 04:43 RDW 15.8 % (13.2-15.2) H 12/08/16 04:43 Plt Count 118 K/mm3 (140-440) L 12/08/16 04:43 Lymph % (Auto) 30.9 % (13.4-35.0) 12/07/16 07:17 [place] % (Auto) 11.4 % (0.0-7.3) H 12/07/16 07:17 Eos % (Auto) 4.4 % (0.0-4.3) H 12/07/16 07:17 Baso % (Auto) 0.9 % (0.0-1.8) 12/07/16 07:17 Lymph # 2.1 K/mm3 (1.2-5.4) 12/07/16 07:17 [place] # 0.8 K/mm3 (0.0-0.8) 12/07/16 07:17 Eos # 0.3 K/mm3 (0.0-0.4) 12/07/16 07:17 Baso # 0.1 K/mm3 (0.0-0.1) 12/07/16 07:17 Seg Neutrophils % 52.4 % (40.0-70.0) 12/07/16 07: Seg Neutrophils # 3.6 K/mm3 (1.8-7.7) 12/07/16 07:17 Sodium 144 mmol/L (137-145) 12/08/16 04:43 Potassium 3.6 mmol/L (3.6-5.0) 12/08/16 04:43 Chloride 103.1 mmol/L (98-107) 12/08/16 04:43 Carbon Dioxide 27 mmol/L (22-30) 12/08/16 04:43 Anion Gap 18 mmol/L 12/08/16 04:43 BUN 17 mg/dL (9-20) 12/08/16 04:43 Creatinine 1.1 mg/dL (0.8-1.5) 12/08/16 04:43 Estimated GFR > 60 ml/min 12/08/16 04:43 BUN/Creatinine Ratio 15.45 % 12/08/16 04:43 Glucose 92 mg/dL (75-100) 12/08/16 04:43 Hemoglobin A1c 5.4 % (4-6) 12/06/16 19:12 Calcium 8.3 mg/dL (8.4-10.2) L 12/08/16 04:43 Total Creatine Kinase 83 units/L (55-170) 12/06/16 19:12 CK-MB (CK-2) 5.3 ng/mL (0.0-4.0) H 12/06/16 19:12 CK-MB (CK-2) Rel Index 6.3 (0-4) H 12/06/16 19:12 Troponin T < 0.010 ng/mL (0.00-0.029) 12/06/16 19:12 NT-Pro-B Natriuret Pep 1094 pg/mL (0-900) H 12/06/16 02:27
[2016-12-09] MEDS: ZOCOR PO SCH (22:00)
[2016-12-09] MEDS: AMBIEN PO PRN (22:00)
[2016-12-10] MEDS: MORPHINE IV PRN (03:54)
[2016-12-10] MEDS: LASIX IV SCH (05:50)
--- NOTE | 2016-12-10 09:34 | Discharge Summary ---
Providers - Providers Date of Admission: 12/06/16 08:38 Date of discharge: 12/10/16 Attending physician: FREDERICK HUERTAS MD Primary care physician: CRAFT ARTIST Hospitalization Reason for admission: shortness of breath Condition: Stable Hospital course: Assessment and plan: Patient's 51-year-old male with past medical history of coronary artery disease and ischemic cardiomyopathy EF 25% PER PT status post ICD unfortunately has been noncompliant with his medication had recently traveled to [place] and just returned and is currently homeless. He normally gets his care at [facility] and has had multiple coronary interventions and prior care at [place] years ago. Patient presents to the ER with complaint of shortness of breath and chest pain which is a started the day prior to presentation. He describes as substernal and lasted 2-3 minutes. But also reports generalized leg swelling for the past 5 days. It was a neuropathy his medication almost 2 weeks ago. He does not recall the names of the medication. He reports dietary indiscretion. The chest pain he describes as a 5/4 over 10 in intensity. States that he does radiate down to his left arm. He describes as pressure in nature. Again he reports some shortness of breath and he is debilitated. He denies any chills denies any nausea or vomiting denies any diaphoresis denies any fever. Patient was treated with IV Lasix and Malarone with good improvement. He is remarkably a new man walking and ambulating with no difficulty. No shortness of breath and no oxygen needed. We did review his pacemaker which records from [place] shows the pacemaker is functional. Patient was recommended for reevaluation. At this time considering his reduced ejection fraction at this recommended that he gets all agreed to AICD but again further evaluation test recently done and patient the patient verbalized understanding of this fact. It is clinically stable for discharge again tobacco cessation was stressed once again. * Acute on chronic systolic congestive heart failure with exacerbation last known EF 10-15% * Ischemic cardiomyopathy * CAD * Tobacco abuse * Noncompliance * Hypokalemia-resolved * Thrombocytopenia Disposition: DISCHARGED TO HOME OR SELFCARE Time spent for discharge: 35 MINS Core Measure Documentation - Palliative Care Palliative Care/ Comfort Measures: Not Applicable - Core Measures Any of the following diagnoses?: heart failure - VTE Discharge Requirements Deep Vein Thrombosis/Pulmonary Embolism Present on Admission: No - Heart Failure Discharge Requirements VICK/ARB for LVSD if EF <40%: Yes Beta anthony at discharge: Yes Exam - Physical Exam Narrative exam: VITAL SIGNS: Reviewed. GENERAL: The patient appeared well nourished and normally developed. Vital signs as documented. HEAD: No signs of head trauma. EYES: Pupils are equal. Extraocular motions intact. EARS: Hearing grossly intact. MOUTH: Oropharynx is normal. NECK: No adenopathy,+ JVD. CHEST: Chest with crackles breath sounds bilaterally. No wheezes, rales, or rhonchi. CARDIAC: Regular rate and rhythm. S1 and S2, without murmurs, gallops, or rubs. VASCULAR: Trace Edema. Peripheral pulses normal and equal in all extremities. ABDOMEN: Soft, without detectable tenderness. No sign of distention. No rebound or guarding, and no masses palpated. Bowel Sounds normal. MUSCULOSKELETAL: Good range of motion of all major joints. Extremities without clubbing, cyanosis. Trace pitting edema. NEUROLOGIC EXAM: Alert and oriented x 3. No focal sensory or strength deficits. Speech normal. Follows commands. PSYCHIATRIC: Mood normal. SKIN: Chronic changes of the nailbeds - Constitutional Vitals: Temp Pulse Resp BP Pulse Ox 97.6 F 68 18 100/68 96 12/10/16 05:21 12/10/16 05:21 12/10/16 05:21 12/10/16 05:21 12/10/16 05:21 Plan Activity: advance as tolerated, fall precautions Diet: low fat, low salt Special Instructions: smoking cessation Additional Instructions: Must follow with cardiology on Saturday for pacemaker evaluation Follow up with: RASHAD ALCARAZ MD [Primary Care Provider] - 3-5 Days CLARISSA JEWELL MD [Staff Physician] - 12/11/16 9:30 am Prescriptions: Simvastatin [Zocor TAB] 40 mg PO QHS #30 tablet Carvedilol [Coreg] 6.25 mg PO BID #60 tablet Furosemide [Lasix TAB] 40 mg PO QDAY #30 tablet ISOSORBIDE MONOnitrate [Imdur ER] 30 mg PO QDAY #30 tablet Lisinopril [Zestril TAB] 10 mg PO QDAY #30 tablet Potassium Chloride [K-Dur] 20 meq PO QDAY #30 tablet
[2016-12-10 09:55] VITALS: BP 122/71
[2016-12-10] MEDS: IMDUR PO SCH (11:08)
[2016-12-10] MEDS: HEPARIN SUB-Q SCH (11:09)
[2016-12-10] MEDS: PEPCID IV SCH (11:09)
[2016-12-10] MEDS: ZESTRIL PO SCH (11:10)
[2016-12-10] MEDS: COREG PO SCH (11:11)
[2016-12-10] MEDS: K-DUR PO SCH (11:17)
--- NOTE | 2016-12-10 20:09 | Progress Note ---
Assessment and Plan - Patient Problems (1) Acute exacerbation of CHF (congestive heart failure) Status: Acute Qualifiers: Congestive heart failure type: systolic Qualified Code(s): I50.23 - Acute on chronic systolic (congestive) heart failure Plan to address problem: The patient looks and feels better, ambulating in the winters, no acute distress, wants to go home. I had an extensive discussion with him in the company of the primary internal medicine attending. We reviewed records from [place] which reported that his pacemaker battery has reached end of life, but their determination was that patient apparently no longer needed pacing. I recommended to him that at this point he needs an electrophysiologic consult. He will likely need an upgrade of his device to an internal cardiac defibrillator given the underlying dilated cardiomyopathy. ICD implantation will be done as an outpatient, and I have recommended that the patient follows up with Dr. Brandt within a week for electrophysiologic consultation. He understands that he eventually needs replacement of his inactive device, presumably with an internal cardiac defibrillator. On discharge, he will be on medical therapy for cardiomyopathy including afterload reducing agents, diuretics and oral antiplatelet therapy. Beta anthony therapy if used should be judicious until he has been reimplanted with a functioning ICD device. Subjective Date of service: 12/10/16 Principal diagnosis: CHF Interval history: The patient looks and feels better, ambulating in the winters, no acute distress, wants to go home. I had an extensive discussion with him in the company of the primary internal medicine attending. We reviewed records from [place] which reported that his pacemaker battery has reached end of life, but their determination was that patient apparently no longer needed pacing. I recommended to him that at this point he needs an electrophysiologic consult. He will likely need an upgrade of his device to an internal cardiac defibrillator given the underlying dilated cardiomyopathy. ICD implantation will be done as an outpatient, and I have recommended that the patient follows up with Dr. Brandt within a week for electrophysiologic consultation. He understands that he eventually needs replacement of his inactive device, presumably with an internal cardiac defibrillator. On discharge, he will be on medical therapy for cardiomyopathy including afterload reducing agents, diuretics and oral antiplatelet therapy. Beta anthony therapy if used should be judicious until he has been reimplanted with a functioning ICD device. Objective Vital Signs Temp Pulse Pulse Resp BP BP Pulse Ox 04/03/17 08:00 97.5 F L 75 20 122/71 96 12/10/16 05:21 97.6 F 68 18 100/68 96 12/10/16 00:10 98.2 F 67 18 107/55 98 12/09/16 22:00 72 98/67 12/09/16 20:17 97.6 F 78 20 73/47 100 - Physical Examination General: Appears Well, No Apparent Distress HEENT: Positive: PERRL Neck: Positive: trachea midline, JVD/HJR Cardiac: Positive: Reg Rate and Rhythm Lungs: Positive: Decreased Breath Sounds Neuro: Positive: Grossly Intact Abdomen: Positive: Soft Skin: Positive: Clear Extremities: Absent: edema
[2016-12-10] MEDS ORDERED: PEPCID PO SCH (22:00)
== END 2016-12-10 15:17 | disposition home or self-care (01) | DRG 293 ==
LOC: ED 02:02 → 4A 08:38
PROVIDERS: ADMIT Internal Medicine; ATTEND Internal Medicine
DX: I11.0 Hypertensive heart disease with heart failure (principal); I50.23 Acute on chronic systolic (congestive) heart failure; Z95.0 Presence of cardiac pacemaker; I25.10 Atherosclerotic heart disease of native coronary artery without angina pectoris; I25.5 Ischemic cardiomyopathy; Z91.19 Patient's noncompliance with other medical treatment and regimen; Z59.0 Homelessness; E78.5 Hyperlipidemia, unspecified; I25.2 Old myocardial infarction; E87.6 Hypokalemia; D69.6 Thrombocytopenia, unspecified; F10.10 Alcohol abuse, uncomplicated; Z71.6 Tobacco abuse counseling; I27.2 Other secondary pulmonary hypertension; G62.9 Polyneuropathy, unspecified
CPT/HCPCS: 36415; 71010; 80048; 82550; 82553; 83036; 83880; 84484; 85025; 85027; 90686; 90732; 93005; 93010; 93306; 94640; 94760; 96374; 96375; 99406; J1644; J1940; J2260; J2270

== ENCOUNTER 2016-12-12 07:09 | Inpatient (IN) | payer SELFPAY ==
[2016-12-12] MEDS ORDERED: BABY ASPIRIN PO ONE (08:00)
[2016-12-12] MEDS ORDERED: NITROSTAT SL ONE ×2 (08:00→08:04)
[2016-12-12] MEDS ORDERED: BABY ASPIRIN ONE (08:04)
[2016-12-12 08:13] LABS: Basophils % (Auto) 0.7 % (0.0-1.8); Eosinophils % (Auto) 3.7 % (0.0-4.3); Hematocrit 42.2 % (35.5-45.6); Hemoglobin 13.8 gm/dl (11.8-15.2); Mean Corpuscular HGB Conc 33 % (32-34); Mean Corpuscular Hemoglobin 30 pg (28-32); Mean Corpuscular Volume 93 fl (84-94); Platelet Count 123 K/mm3 (140-440); Red Blood Count 4.53 M/mm3 (3.65-5.03); Red Cell Distribution Width 15.5 % (13.2-15.2); White Blood Count 6.8 K/mm3 (4.5-11.0)
--- NOTE | 2016-12-12 08:29 | XRay Report ---
Portable chest: Chest pain. The heart is big. There is a bipolar pacemaker. There is mild vascular congestion. No perivascular edema nor effusion. No infiltrate. Compared to prior examination of December 07 there is no significant change. Impression: Mild congestion.
[2016-12-12 08:30] LABS: Anion Gap 15 mmol/L; Blood Urea Nitrogen 16 mg/dL (9-20); Calcium 9.1 mg/dL (8.4-10.2); Carbon Dioxide 23 mmol/L (22-30); Chloride 102.8 mmol/L (98-107); Glucose 90 mg/dL (75-100); Potassium 4.2 mmol/L (3.6-5.0); Sodium 137 mmol/L (137-145)
[2016-12-12] MEDS ORDERED: MORPHINE IV ONE (09:02)
--- NOTE | 2016-12-12 09:03 | Emergency Department Report ---
ED Chest Pain HPI - General Chief Complaint: Chest Pain Stated Complaint: CHEST PAIN Time Seen by Provider: 12/12/16 09:00 Source: patient, RN notes reviewed, old records reviewed Mode of arrival: Wheelchair Limitations: No Limitations - History of Present Illness Initial Comments: This is a 51-year-old male. He is previously unknown to me. Has a past medical history of ischemic heart disease, ischemic cardiomyopathy, typically gets his medical care [facility], he recently reported a severe ischemic cardiomyopathy with an EF of 25%, patient was scheduled today to have an ICD placement. Patient was recently admitted to the hospital, found to have 4 chamber dilated cardiomyopathy, with severe left ventricle systolic dysfunction, with an ejection fraction of 10-15%. The patient presents to the ER complaining of chest pain, cough, shortness of breath. He reports no relief with nitroglycerin. The chest pain is sharp and achy. It moves to his left upper extremity. There is no hematemesis. There is no bright red blood per rectum. MD Complaint: chest pain -: Gradual Onset: during rest Pain Location: left chest Severity: moderate Quality: heaviness Consistency: constant Improves With: nothing re: nausea, diaphoresis, dyspnea - Related Data On Oral Contraceptives: No Previous Rx's Medication Instructions Recorded Last Taken Type Carvedilol [Coreg] 6.25 mg PO BID #60 tablet 12/10/16 Unknown Rx Furosemide [Lasix TAB] 40 mg PO QDAY #30 tablet 12/10/16 Unknown Rx ISOSORBIDE MONOnitrate [Imdur ER] 30 mg PO QDAY #30 tablet 12/10/16 Unknown Rx Lisinopril [Zestril TAB] 10 mg PO QDAY #30 tablet 12/10/16 Unknown Rx Potassium Chloride [K-Dur] 20 meq PO QDAY #30 tablet 12/10/16 Unknown Rx Simvastatin [Zocor TAB] 40 mg PO QHS #30 tablet 12/10/16 Unknown Rx Allergies Allergy/AdvReac Type Severity Reaction Status Date / Time No Known Allergies Allergy Verified 12/06/16 02:13 BLANE score - Blane Score Age > 65: (0) No Aspirin use within the Past 7 Days: (0) No 3 or more CAD Risk Factors: (1) Yes 2 or more Angina events in past 24 hrs: (1) Yes Known CAD with more than 50% Stenosis: (1) Yes Elevated Cardiac Markers: (0) No ST Deviation Greater than 0.5mm: (0) No BLANE Score: 3 ED Review of Systems ROS: Stated complaint: CHEST PAIN Other details as noted in HPI Constitutional: malaise Eyes: denies: vision change ENT: denies: epistaxis Respiratory: cough, shortness of breath Cardiovascular: chest pain Gastrointestinal: nausea Genitourinary: denies: dysuria Musculoskeletal: as per HPI Skin: denies: rash, lesions Neurological: weakness Psychiatric: anxiety ED Past Medical Hx - Past Medical History Previous Medical History?: Yes Hx Hypertension: Yes Hx Heart Attack/AMI: Yes Hx Congestive Heart Failure: Yes Hx Liver Disease: Yes Hx Psychiatric Treatment: Yes - Surgical History Hx Pacemaker: Yes - Social History Smoking Status: Former Smoker Substance Use Type: None - Medications Home Medications: Home Medications Medication Instructions Recorded Confirmed Last Taken Type Carvedilol [Coreg] 6.25 mg PO BID #60 tablet 12/10/16 Unknown Rx Furosemide [Lasix TAB] 40 mg PO QDAY #30 tablet 12/10/16 Unknown Rx ISOSORBIDE MONOnitrate [Imdur ER] 30 mg PO QDAY #30 tablet 12/10/16 Unknown Rx Lisinopril [Zestril TAB] 10 mg PO QDAY #30 tablet 12/10/16 Unknown Rx Potassium Chloride [K-Dur] 20 meq PO QDAY #30 tablet 12/10/16 Unknown Rx Simvastatin [Zocor TAB] 40 mg PO QHS #30 tablet 12/10/16 Unknown Rx ED Physical Exam - General Limitations: No Limitations General appearance: alert, in no apparent distress - Head Head exam: Present: atraumatic, normocephalic - Eye Eye exam: Present: normal appearance, EOMI. Absent: nystagmus - ENT ENT exam: Present: normal exam, normal orophraynx, mucous membranes moist, normal external ear exam - Neck Neck exam: Present: normal inspection, full ROM. Absent: tenderness, meningismus - Respiratory Respiratory exam: Present: normal lung sounds bilaterally. Absent: respiratory distress, wheezes, rales, rhonchi, stridor, chest wall tenderness, accessory muscle use, decreased breath sounds, prolonged expiratory - Cardiovascular Cardiovascular Exam: Present: regular rate, normal rhythm, normal heart sounds. Absent: bradycardia, tachycardia, irregular rhythm, systolic murmur, diastolic murmur, rubs, gallop - GI/Abdominal GI/Abdominal exam: Present: soft, normal bowel sounds. Absent: distended, tenderness, guarding, rebound, rigid, pulsatile mass, hernia - Rectal Rectal exam: Present: deferred - Extremities Exam Extremities exam: Present: normal inspection, full ROM, normal capillary refill. Absent: tenderness, pedal edema, joint swelling, calf tenderness - Back Exam Back exam: Present: normal inspection, full ROM. Absent: tenderness, CVA tenderness (R), CVA tenderness (L), muscle spasm, paraspinal tenderness, vertebral tenderness - Neurological Exam Neurological exam: Present: alert, oriented X3, normal gait, other (Extraocular movements intact. Tongue midline. No facial droop. Facial sensation intact to light touch in the V1, V2, V3 distribution bilaterally. 5 and 5 strength in 4 extremities.. Sensation is intact to light touch in 4 extremities.). Absent : motor sensory deficit - Psychiatric Psychiatric exam: Present: normal affect, normal mood - Skin Skin exam: Present: warm, dry, intact, normal color. Absent: rash ED Course Vital Signs 12/12/16 12/12/16 12/12/16 07:25 08:10 09:06 Temperature 98.2 F Pulse Rate 89 91 H Respiratory 20 18 Rate Blood Pressure 134/104 138/101 O2 Sat by Pulse 98 Oximetry 12/12/16 12/12/16 12/12/16 09:36 13:14 13:18 Temperature Pulse Rate 93 H Respiratory 18 18 Rate Blood Pressure 129/76 129/76 O2 Sat by Pulse Oximetry - Reevaluation(s) Reevaluation #1: 12/12/16 10:16 differential diagnosis: Congestive heart failure, pneumonia, acute coronary syndrome, unstable angina Assessment and plan: 51-year-old male with known history of ischemic cardiac myopathy, documented to be poorly compliant with his medications, coming in with concerning chest pain. His chest pain was refractory to nitroglycerin, improved somewhat with morphine. He will be loaded with aspirin, and started on a heparin drip. I will defer to inpatient cardiology as to whether or not to initiate Plavix load. Case is discussed with the cardiology nurse practitioner, Gerard Roberto, their group will follow as a consult. Case is discussed with the Hospital physician, Dr. Burris, who accepts the patient to her service. ED Medical Decision Making - Lab Data Result diagrams: 12/12/16 07:51 12/12/16 07:51 Vital Signs 12/12/16 12/12/16 12/12/16 07:25 08:10 09:06 Temperature 98.2 F Pulse Rate 89 91 H Respiratory 20 18 Rate Blood Pressure 134/104 138/101 O2 Sat by Pulse 98 Oximetry Lab Results 12/12/16 12/12/16 12/12/16 Range/Units 07:51 07:51 07:51 WBC 6.8 (4.5-11.0) K/mm3 RBC 4.53 (3.65-5.03) M/mm3 Hgb 13.8 (11.8-15.2) gm/dl Hct 42.2 (35.5-45.6) % MCV 93 (84-94) fl MCH 30 (28-32) pg MCHC 33 (32-34) % RDW 15.5 H (13.2-15.2) % Plt Count 123 L (140-440) K/mm3 Lymph % (Auto) 29.2 (13.4-35.0) % Hancock % (Auto) 15.5 H (0.0-7.3) % Eos % (Auto) 3.7 (0.0-4.3) % Baso % (Auto) 0.7 (0.0-1.8) % Lymph # 2.0 (1.2-5.4) K/mm3 Hancock # 1.1 H (0.0-0.8) K/mm3 Eos # 0.2 (0.0-0.4) K/mm3 Baso # 0.0 (0.0-0.1) K/mm3 Seg Neutrophils % 50.9 (40.0-70.0) % Seg Neutrophils # 3.5 (1.8-7.7) K/mm3 PT (12.2-14.9) Sec. INR (0.87-1.13) APTT (24.2-36.6) Sec. Sodium 137 (137-145) mmol/L Potassium 4.2 (3.6-5.0) mmol/L Chloride 102.8 (98-107) mmol/L Carbon Dioxide 23 (22-30) mmol/L Anion Gap 15 mmol/L BUN 16 (9-20) mg/dL Creatinine 0.8 (0.8-1.5) mg/dL Estimated GFR > 60 ml/min BUN/Creatinine Ratio 20.00 % Glucose 90 (75-100) mg/dL Calcium 9.1 (8.4-10.2) mg/dL Troponin T < 0.010 (0.00-0.029) ng/mL NT-Pro-B Natriuret Pep 636.3 (0-900) pg/mL 12/12/16 Range/Units 09:05 WBC (4.5-11.0) K/mm3 RBC (3.65-5.03) M/mm3 Hgb (11.8-15.2) gm/dl Hct (35.5-45.6) % MCV (84-94) fl MCH (28-32) pg MCHC (32-34) % RDW (13.2-15.2) % Plt Count (140-440) K/mm3 Lymph % (Auto) (13.4-35.0) % Hancock % (Auto) (0.0-7.3) % Eos % (Auto) (0.0-4.3) % Baso % (Auto) (0.0-1.8) % Lymph # (1.2-5.4) K/mm3 Hancock # (0.0-0.8) K/mm3 Eos # (0.0-0.4) K/mm3 Baso # (0.0-0.1) K/mm3 Seg Neutrophils % (40.0-70.0) % Seg Neutrophils # (1.8-7.7) K/mm3 PT 13.9 (12.2-14.9) Sec. INR 1.08 (0.87-1.13) APTT 32.5 (24.2-36.6) Sec. Sodium (137-145) mmol/L Potassium (3.6-5.0) mmol/L Chloride (98-107) mmol/L Carbon Dioxide (22-30) mmol/L Anion Gap mmol/L BUN (9-20) mg/dL Creatinine (0.8-1.5) mg/dL Estimated GFR ml/min BUN/Creatinine Ratio % Glucose (75-100) mg/dL Calcium (8.4-10.2) mg/dL Troponin T (0.00-0.029) ng/mL NT-Pro-B Natriuret Pep (0-900) pg/mL - EKG Data 12/12/16 10:18 normal sinus, 92 bpm, left axis deviation, poor R-wave progression, QTC 482 ms, not morphologically consistent with STEMI. - Radiology Data Radiology results: report reviewed, image reviewed X-ray of the chest demonstrates cardiomegaly, left-sided device is noted, mild pulmonary vascular congestion, no acute disease Critical Care Time: Yes Critical care time in (mins) excluding proc time.: 35 Critical care attestation.: If time is entered above; I have spent that time in minutes in the direct care of this critically ill patient, excluding procedure time. Critical Care Time: Critical care time includes multiple bedside evaluations, interpretation of laboratory studies, radiology studies, time spent discussing patient's care with cardiology and hospital medicine consultations. This does not include procedure time. ED Disposition Clinical Impression: Unstable angina Disposition: OP ADMITTED IP TO THIS HOSP Is pt being admited?: Yes Does the pt Need Aspirin: Yes Condition: Good
--- NOTE | 2016-12-12 09:07 | Admit Criteria Form ---
Admission Criteria Documentation: CHEST PAIN Clinical Indications for Admission to Inpatient Care (Place 'X' for any and all applicable criteria): Admission is indicated for chest pain and ANY ONE of the following(1)(2)(3)(4)(5 ): [ ]I. Angina with acute coronary syndrome (Also use Myocardial Infarction or Angina guideline) [ ]II. Hemodynamic instability [X ]III. Angina needing acute intervention as indicated by ALL of the following (11)(12): [ X]a) Unstable angina is present as indicated by angina that is ANY ONE of the following: [X ]i) New onset [ ]ii) Nocturnal [ ]iii) Prolonged at rest [ ]iv) Progressive [ X]b) Angina warrants acute intervention as indicated by ANY ONE of the following: [ ]i) Recurrent angina (e.g, not responding as previously to treatment) [ ]ii) Angina at rest or with low-level activities despite initial medical therapy [ ]iii) New or presumably new ST-segment depression on ECG [ ]iv) Signs or symptoms of heart failure (eg, dyspnea, pulmonary edema) [ ]v) New or worsening mitral regurgitation [ ]vi) Hemodynamic instability [ ]vii) Dangerous arrhythmia (eg, sustained ventricular tachycardia) [ ]viii) History of percutaneous coronary intervention within 6 months [ ]ix) History of coronary artery bypass graft surgery [X ]x) BLANE risk score of 2 or greater[A] [ ]xi) History of Diabetes(14) [ ]xii) High-risk cardiac ischemia findings on noninvasive testing (e.g, echocardiogram, treadmill testing, nuclear scan) [ ]xiii) Chronic renal insufficiency (ie, estimated GFR less than 60 mL/min/1.732m) [ ]xiv) Left ventricular ejection fraction less than 40% [ ]IV. Evidence of RI (eg, cardiac biomarkers positive, ST-segment elevation on ECG) also use Myocardial Infarction Criteria Form. [ ]V. Pulmonary edema [ ]. Respiratory distress [ ]VII. Chest pain indicative of serious diagnosis other than coronary artery disease (eg, aortic dissection) [ ]VIII. Contraindications and/or Inappropriate clinical situations for Observational Care in patients with Chest Pain, when ANY ONE of the following is required: [ ]a) Patient with risk factor for pulmonary embolism, acute coronary syndrome and myocardial infarction (18) [ ]b) Patient with Pulmonary embolism require an average LOS of 4.3 days, therefore emergency department observation management is inappropriate 18,23 [ ]c) Painful condition/s in the elderly, have the highest rate of recidivism after emergency department observation management (10.8%) 20,21,22 [ ]d) Elevated cardiac biomarker requires intensive and exhaustive care (19) [ ]IX. General contraindications and/or Inappropriate clinical situations for Observational Care in patients with Chest Pain, when ANY ONE of the following is required: [ ]a) Prediction of prolongation of LOS based on ANY ONE of the following may be considered as a contraindication for observational care 2, 3, 4, 5, 6, 7, 8, 9, 10, 11 [ ]i) Age > 65 yrs. [ ]ii) Patient arriving by ambulance [ ]iii) Patient with high acuity [ ]iv) Patient requiring vital sign monitoring [ ]v) Patient on IV medication [ ]b) Systolic blood pressures 180mmHg 3,12 [ ]c) Patient with altered mental status including delirium and other alteration of consciousness, (3) [ ]d) Patient whose discharge disposition will be to a fdc home or rehabilitation home should not be managed in Emergency Department Observation Unit. CMS rule requires 3 days hospital stay before such placement. 3,13 [ ]e) Patient with failure to thrive due to broad array of etiologies 3,16,17 [ ]f) Inability to ambulate 3,14 Extended stay beyond goal length of stay may be needed for (1)(28): [ ]a) Specific condition diagnosed after evaluation (eg, pulmonary embolism, aortic dissection) [ ]b) Unstable angina [ ]c) Continued suspicion of acute coronary syndrome with inability to complete needed cardiac evaluation (eg, patient clinically unable to undergo stress testing) [ ]d) Myocardial infarction (Contents from ANGINA and CHEST PAIN clinical indications for admission to inpatient care have been integrated in this form) The original [employer] content created by [employer] has been revised. The portions of the content which have been revised are identified through the use of italic text or in bold, and [email or web address] has neither reviewed nor approved the modified material. All other unmodified content is copyright [employer]. Please see references footnoted in the original [facility] edition 2016 Admission Criteria Met: Yes
[2016-12-12 09:33] LABS: INR 1.08 (0.87-1.13)
--- NOTE | 2016-12-12 09:34 | History and Physical Report ---
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 recently admitted and discharged , scheduled to see section maintainer today for evaluation of ICD placement, however patient developed chest pain and worsening shortness of breath and presented to the emergency room for further evaluation During last admission patient's ejection fraction was 10-15% When I evaluated the patient patient has chest pain intermittent left-sided Greats between -02/16, associated with mild nausea no vomiting, agitation and claims compliance with his medications Positive cardiac enzymes negative Past History Past Medical History: CAD, hypertension, hyperlipidemia Past Surgical History: PTCA Social history: lives with family, smoking, alcohol abuse, full code Family history: hypertension Medications and Allergies Allergies Allergy/AdvReac Type Severity Reaction Status Date / Time No Known Allergies Allergy Verified 12/06/16 02:13 Home Medications Medication Instructions Recorded Confirmed Last Taken Type Carvedilol [Coreg] 6.25 mg PO BID #60 tablet 12/10/16 Unknown Rx Furosemide [Lasix TAB] 40 mg PO QDAY #30 tablet 12/10/16 Unknown Rx ISOSORBIDE MONOnitrate [Imdur ER] 30 mg PO QDAY #30 tablet 12/10/16 Unknown Rx Lisinopril [Zestril TAB] 10 mg PO QDAY #30 tablet 12/10/16 Unknown Rx Potassium Chloride [K-Dur] 20 meq PO QDAY #30 tablet 12/10/16 Unknown Rx Simvastatin [Zocor TAB] 40 mg PO QHS #30 tablet 12/10/16 Unknown Rx Review of Systems Constitutional: weakness, no weight loss, no weight gain, no fever, no chills Ears, nose, mouth and throat: no nasal congestion, no nasal discharge Cardiovascular: chest pain, edema, lightheadedness, no orthopnea, no palpitations Respiratory: shortness of breath, no cough with sputum Gastrointestinal: nausea, no abdominal pain, no vomiting Genitourinary Male: no dysuria, no hematuria Musculoskeletal: no myalgias, no arthritis Integumentary: no rash, no lesions Neurological: weakness, no paralysis, no seizures Psychiatric: no anxiety, no depression Endocrine: no cold intolerance, no heat intolerance, no polydipsia, no polyuria Hematologic/Lymphatic: no easy bruising, no easy bleeding Allergic/Immunologic: no urticaria, no allergic rhinitis Exam - Constitutional Vitals: Temp Pulse Resp BP Pulse Ox 98.2 F 91 H 18 138/101 98 12/12/16 07:25 12/12/16 08:10 12/12/16 09:06 12/12/16 08:10 12/12/16 07:25 General appearance: Present: mild distress, well-nourished, obese - EENT Eyes: Present: PERRL, EOM intact - Neck Neck: Present: supple, normal ROM - Respiratory Respiratory effort: normal Respiratory: bilateral: diminished, rales, negative: rhonchi, wheezing - Cardiovascular Rhythm: regular Heart Sounds: Present: S1 & S2 - Extremities Extremities: no ischemia, pulses intact, pulses symmetrical Extremity abnormal: edema Peripheral Pulses: within normal limits - Abdominal General gastrointestinal: Present: soft, non-tender, non-distended, normal bowel sounds - Integumentary Integumentary: Present: clear, warm - Musculoskeletal Musculoskeletal: strength equal bilaterally - Psychiatric Psychiatric: appropriate mood/affect, cooperative - Neurologic Neurologic: CNII-XII intact, moves all extremities Results - Labs CBC & Chem 7: 12/12/16 07:51 12/12/16 07:51 Labs: Abnormal lab results 12/12/16 Range/Units 07:51 RDW 15.5 H (13.2-15.2) % Plt Count 123 L (140-440) K/mm3 Baldwin % (Auto) 15.5 H (0.0-7.3) % Baldwin # 1.1 H (0.0-0.8) K/mm3 Assessment and Plan --Chest pain rule out acute coronary syndrome Serial cardiac enzymes, EKG Aspirin and beta blockers VICK inhibitor slighted since statins Lovenox and pain medications Cardiology evaluation --Acute on chronic systolic congestive heart failure Continue anti-failure medications, cardiology consult --Severe ischemic cardiomyopathy with ejection fraction of 15% Patient is advised ICD placement, evaluation pending --Hypertension moderate control Continue current antihypertensive medications --History of tobacco use Patient reports that he quit recently, counseling done --DVT prophylaxis with Lovenox Follow cardiology evaluation and recommendations Closely monitor the patient and adjust the management as needed Plan of care discussed with the patient, his nurse as well as the ER physician
[2016-12-12 09:39] LABS: Partial Thromboplastin Time 32.5 Sec. (24.2-36.6)
[2016-12-12] MEDS ORDERED: LASIX IV ONE (10:00)
[2016-12-12] MEDS ORDERED: LOVENOX SUB-Q SCH (10:00)
[2016-12-12] MEDS ORDERED: HEPARIN 10,000 UNITS/10 ML IV ONE (10:10)
[2016-12-12 10:59] LABS: Creatine Kinase MB 6.9 ng/mL (0.0-4.0)
[2016-12-12] MEDS ORDERED: HEPARIN/ 0.45% NACL-25,000 UNIT/500 ML 25,000 UNIT/500 ML BAG IV SCH (11:00)
[2016-12-12] MEDS ORDERED: HEPARIN ONE (12:22)
[2016-12-12] MEDS ORDERED: LASIX ONE (12:28)
[2016-12-12] MEDS: K-DUR PO SCH (12:45)
[2016-12-12] MEDS: ZESTRIL PO SCH ×2 (13:14→15:54)
[2016-12-12] MEDS: MORPHINE IV PRN ×2 (13:14→23:46)
[2016-12-12] MEDS: IMDUR PO SCH ×2 (13:18→15:55)
[2016-12-12] MEDS: COREG PO SCH ×3 (13:18→23:06)
--- NOTE | 2016-12-12 14:58 | Consultation ---
History of Present Illness Consult date: 12/12/16 Consult reason: chest pain History of present illness: Mr Romo is a 51yr old male with a history of coronary artery disease and ischemic cardiomyopathy. He had a cardiac cath done at [facility] less than a year ago. No interventions preformed at that time. He has an indwelling pacemaker. Indication for pacemaker is unknown. Review of records from [facility] reports that his pacemaker battery has reached end of life, but their determination was that patient apparently no longer needed pacing. Instead he underwent an implant of a loop recorder for evaluation of arrhythmias February of 2016. Recent echocardiogram revealed four-chamber dilated cardiomyopathy, severe left ventricle systolic dysfunction, ejection fraction 10-15%. He presents to the hospital with shortness of breath, chest pain, and diaphoresis now admitted for rule out ACS. His EKG shows a normal sinus rhythm, left axis deviation, old anterior myocardial infarction. There are no acute ischemic changes. Of note patient was discharged from this hospital 2 days ago after treatment of systolic heart failure. Since discharge patient admits to not being compliant with his medications, states he never got his prescriptions filled due to financial issues. Past History Past Medical History: CAD, hypertension, hyperlipidemia Past Surgical History: PTCA Social history: lives with family, smoking, alcohol abuse, full code Family history: hypertension Medications and Allergies Allergies Allergy/AdvReac Type Severity Reaction Status Date / Time No Known Allergies Allergy Verified 12/06/16 02:13 Home Medications Medication Instructions Recorded Confirmed Last Taken Type Carvedilol [Coreg] 6.25 mg PO BID #60 tablet 12/10/16 Unknown Rx Furosemide [Lasix TAB] 40 mg PO QDAY #30 tablet 12/10/16 Unknown Rx ISOSORBIDE MONOnitrate [Imdur ER] 30 mg PO QDAY #30 tablet 12/10/16 Unknown Rx Lisinopril [Zestril TAB] 10 mg PO QDAY #30 tablet 12/10/16 Unknown Rx Potassium Chloride [K-Dur] 20 meq PO QDAY #30 tablet 12/10/16 Unknown Rx Simvastatin [Zocor TAB] 40 mg PO QHS #30 tablet 12/10/16 Unknown Rx Active Meds: Active Medications Carvedilol (Coreg) 6.25 mg PO BID GLORIA Last Admin: 12/12/16 13:18 Dose: Not Given Heparin Sodium/Sodium Chloride (Heparin/ 0.45% Nacl-25,000 Unit/500 Ml) 25,000 unit in 500 mls @ 20 mls/hr IV TITRATE GLORIA; 1,000 UNITS/HR PRN Reason: Protocol Last Admin: 12/12/16 13:05 Dose: 1,000 units/hr, 20 mls/hr Isosorbide Mononitrate (Imdur) 30 mg PO QDAY [facility] Last Admin: 12/12/16 13:18 Dose: Not Given Lisinopril (Zestril) 10 mg PO QDAY [facility] Last Admin: 12/12/16 13:14 Dose: Not Given Morphine Sulfate (Morphine) 2 mg IV Q6H PRN PRN Reason: Pain, Moderate (4-6) Last Admin: 12/12/16 13:14 Dose: 2 mg Oxycodone/Acetaminophen (Percocet 5/325) 1 tab PO Q6H PRN PRN Reason: Pain, Moderate (4-6) Potassium Chloride (K-Dur) 20 meq PO QDAY [facility] Last Admin: 12/12/16 12:45 Dose: 20 meq Simvastatin (Zocor) 40 mg PO QHS [facility] Physical Examination Vital Signs Temp Pulse Resp BP Pulse Ox 98.2 F 89 20 134/104 98 12/12/16 07:25 12/12/16 07:25 12/12/16 07:25 12/12/16 07:25 12/12/16 07:25 General appearance: no acute distress HEENT: Positive: PERRL Neck: Positive: trachea midline Cardiac: Positive: Reg Rate and Rhythm Lungs: Positive: Decreased Breath Sounds Neuro: Positive: Grossly Intact Results 12/12/16 07:51 12/12/16 07:51 Cardiac Enzymes 12/12/16 Range/Units 10:19 CK-MB (CK-2) 6.9 H (0.0-4.0) ng/mL Assessment and Plan Chest pain Thrombocytopenia Ischemic cardiomyopathy, LVEF 10-15% CAD s/p multiple PCIs Cath ~ 1 year ago reported mild to moderate residual disease recommended for medical therapy Severe pulmonary hypertension Presence of Permanent pacemaker battery has reached end of life Presence of Loop recorder Non-compliance with medications Recommendation: Resume medical therapy for his coronary artery disease and ischemic cardiomyopathy. We will plan for invasive cardiac evaluation with a cardiac cath in the morning. Patient agrees to proceed.
[2016-12-12] MEDS: PERCOCET 5/325 PO PRN (16:05)
[2016-12-12] MEDS: ZOCOR PO SCH (23:06)
[2016-12-13] MEDS: PERCOCET 5/325 PO PRN ×2 (03:48→22:34)
[2016-12-13 04:23] LABS: Blood Urea Nitrogen 23 mg/dL (9-20); Carbon Dioxide 27 mmol/L (22-30); Glucose 103 mg/dL (75-100)
[2016-12-13 04:42] LABS: Anion Gap 17 mmol/L; Calcium 8.6 mg/dL (8.4-10.2); Chloride 99.5 mmol/L (98-107); Potassium 4.1 mmol/L (3.6-5.0); Sodium 139 mmol/L (137-145)
[2016-12-13 05:52] LABS: Hematocrit 40.5 % (35.5-45.6); Hemoglobin 13.4 gm/dl (11.8-15.2); Mean Corpuscular HGB Conc 33 % (32-34); Mean Corpuscular Hemoglobin 31 pg (28-32); Mean Corpuscular Volume 93 fl (84-94); Platelet Count 118 K/mm3 (140-440); Red Blood Count 4.34 M/mm3 (3.65-5.03); Red Cell Distribution Width 15.9 % (13.2-15.2); White Blood Count 5.8 K/mm3 (4.5-11.0)
[2016-12-13 06:02] LABS: INR 1.12 (0.87-1.13)
[2016-12-13 06:11] LABS: Partial Thromboplastin Time 75.2 Sec. (24.2-36.6)
[2016-12-13 06:20] LABS: Anion Gap 19 mmol/L; Blood Urea Nitrogen 23 mg/dL (9-20); Calcium 8.9 mg/dL (8.4-10.2); Carbon Dioxide 25 mmol/L (22-30); Chloride 101.3 mmol/L (98-107); Glucose 96 mg/dL (75-100); Potassium 4.1 mmol/L (3.6-5.0); Sodium 141 mmol/L (137-145)
[2016-12-13 08:23] LABS: Blastocytes % (Manual) 0 %
[2016-12-13 08:24] LABS: Anisocytosis 1+; Diff Status Complete; Large Platelets Few; Platelet Estimate Consistent w Auto
[2016-12-13] MEDS: COREG PO SCH ×2 (10:55→22:35)
[2016-12-13] MEDS: IMDUR PO SCH (10:55)
[2016-12-13] MEDS: K-DUR PO SCH (10:56)
[2016-12-13] MEDS: ZESTRIL PO SCH (10:56)
[2016-12-13] MEDS ORDERED: HEPARIN/NS 5000 UNIT/500ML(CATH LAB) 1,000 ML IR ONE (12:23)
[2016-12-13] MEDS ORDERED: HEPARIN 10,000 UNITS/10 ML ONE (12:25)
[2016-12-13] MEDS ORDERED: NACL 0.9% 500 ML 500 ML ONE (12:36)
[2016-12-13] MEDS: SUBLIMAZE ONE ×3 (12:49→13:14)
[2016-12-13] MEDS: VERSED ONE ×3 (12:50→13:14)
[2016-12-13] MEDS: XYLOCAINE 2% INFILTRATI ONE ×2 (12:50→13:11)
--- NOTE | 2016-12-13 13:40 | Event Note ---
Date: 12/13/16 Cardiac cath done via R femoral approach, no complications. Findings: 1. Patent RCA stent. 2. Mild nonobstructive proximal LAD stenosis. 3. Severe dilated nonischemic CMP, EF 10-15%. Recommend: Medical therapy and RF modification. OK for cardiac discharge. Outpatient follow up with EPS, for upgrade of PM to ICD.
--- NOTE | 2016-12-13 13:55 | Cardiac Catherization Report ---
REASON FOR PROCEDURE: Congestive heart failure, coronary artery disease and chest pain. PROCEDURE: The patient was prepped and draped in a sterile fashion after informed consent. Right femoral artery was entered using Seldinger technique followed by placement of a 6-British sheath. Selective left and right coronary angiography was performed using #4 left and right Quinton catheters. A pigtail catheter was then used for left ventricular angiography. The catheters were removed, sheath removed, and hemostasis achieved using manual compression. The patient was returned to the post-procedure unit in stable condition. There were no complications. FINDINGS: HEMODYNAMICS: Left ventricular end-diastolic pressure was 25, following coronary angiography. Ascending aortic pressure was 122/73. There was no significant pressure gradient on pullback across the aortic valve. CORONARY ANGIOGRAPHY: The left main coronary artery was free of significant disease. The left anterior descending artery contained a 30-40% stenosis of its proximal segment, associated with moderate calcification in this segment. Otherwise, the mid and distal LAD and diagonal branches were free of significant disease. The circumflex artery and its obtuse marginal branches contained mild luminal irregularities. The right coronary artery was dominant. A stent was visible in the proximal to mid right coronary artery. The stented segment was widely patent, with minimal in-stent restenosis. Otherwise, mild luminal irregularities were noted of the mid right coronary artery. The left ventricle was severely dilated. There was severe left ventricular systolic dysfunction with severe diffuse hypokinesis. Left ventricular ejection fraction was 10-15%. CONCLUSION: 1. Patent right coronary artery stent. 2. Mild nonobstructive disease of the proximal LAD. 3. Severe dilated, predominantly nonischemic cardiomyopathy, left ventricular ejection fraction 10-15%. RECOMMENDATION: 1. Risk factor modification. 2. Medical therapy for nonischemic cardiomyopathy. JOB# [id number] CA/NTS
[2016-12-13] MEDS ORDERED: NACL 0.9% 1000 ML 1,000 ML IV SCH (14:00)
--- NOTE | 2016-12-13 16:24 | Progress Note ---
Assessment and Plan Assessment and plan: --Chest pain mild improvement of symptoms Scheduled for heart cath today On Aspirin and beta blockers VICK inhibitor and statins Lovenox and pain medications Follow heart cath, If negative and patient stable can be discharged home --Acute on chronic systolic congestive heart failure Continue anti-failure medications, cardiology consult --Severe ischemic cardiomyopathy with ejection fraction of 15% Patient is advised ICD placement, evaluation by EP studies outpatient --Hypertension moderate control Continue current antihypertensive medications --History of tobacco use Patient reports that he quit recently, counseling done --DVT prophylaxis with Lovenox Possible discharge in 1-2 days if stable Cardiology evaluation and recommendations noted and appreciated Done of care discussed with the patient as well as his nurse Answered all his questions History Interval history: Patient seen and evaluated this morning medical records reviewed Scheduled for left heart, continues to have mild intermittent chest pain as well as shortness of breath Alert awake oriented 3 not in acute distress Hospitalist Physical - Constitutional Vitals: Temp Pulse Resp BP Pulse Ox 98.5 F 57 L 16 114/79 94 12/13/16 09:56 12/13/16 11:00 12/13/16 09:56 12/13/16 09:56 12/13/16 09:56 General appearance: Present: no acute distress, well-nourished - EENT Eyes: Present: PERRL, EOM intact - Neck Neck: Present: supple, normal ROM - Respiratory Respiratory effort: normal Respiratory: bilateral: diminished, negative: rales, rhonchi, wheezing - Cardiovascular Rhythm: regular Heart Sounds: Present: S1 & S2 - Extremities Extremities: no ischemia, pulses intact, pulses symmetrical Peripheral Pulses: within normal limits - Abdominal General gastrointestinal: soft, non-tender, non-distended, normal bowel sounds - Integumentary Integumentary: Present: clear, warm - Psychiatric Psychiatric: appropriate mood/affect, cooperative - Neurologic Neurologic: CNII-XII intact, moves all extremities Results - Labs CBC & Chem 7: 12/13/16 04:52 12/13/16 04:52 Labs: Laboratory Last Values WBC 5.8 K/mm3 (4.5-11.0) 12/13/16 04:52 RBC 4.34 M/mm3 (3.65-5.03) 12/13/16 04:52 Hgb 13.4 gm/dl (11.8-15.2) 12/13/16 04:52 Hct 40.5 % (35.5-45.6) 12/13/16 04:52 MCV 93 fl (84-94) 12/13/16 04:52 MCH 31 pg (28-32) 12/13/16 04:52 MCHC 33 % (32-34) 12/13/16 04:52 RDW 15.9 % (13.2-15.2) H 12/13/16 04:52 Plt Count 118 K/mm3 (140-440) L 12/13/16 04:52 Lymph % (Auto) 29.2 % (13.4-35.0) 12/12/16 07:51 [place] % (Auto) Quality Control 12/13/16 04:52 Eos % (Auto) 3.7 % (0.0-4.3) 12/12/16 07:51 Baso % (Auto) 0.7 % (0.0-1.8) 12/12/16 07:51 Lymph # 2.0 K/mm3 (1.2-5.4) 12/12/16 07:51 [place] # 1.1 K/mm3 (0.0-0.8) H 12/12/16 07:51 Eos # 0.2 K/mm3 (0.0-0.4) 12/12/16 07:51 Baso # 0.0 K/mm3 (0.0-0.1) 12/12/16 07:51 Add Manual Diff Complete 12/13/16 04:52 Total Counted 100 12/13/16 04:52 Seg Neutrophils % 50.9 % (40.0-70.0) 12/12/16 07:51 Seg Neuts % (Manual) 56.0 % (40.0-70.0) 12/13/16 04:52 Band Neutrophils % 1.0 % 12/13/16 04:52 Lymphocytes % (Manual) 25.0 % (13.4-35.0) 12/13/16 04:52 Reactive Lymphs % (Man) 1.0 % 12/13/16 04:52 Monocytes % (Manual) 12.0 % (0.0-7.3) H 12/13/16 04:52 Eosinophils % (Manual) 2.0 % (0.0-4.3) 12/13/16 04:52 Basophils % (Manual) 3.0 % (0.0-1.8) H 12/13/16 04:52 Metamyelocytes % 0 % 12/13/16 04:52 Myelocytes % 0 % 12/13/16 04:52 Promyelocytes % 0 % 12/13/16 04:52 Blast Cells % 0 % 12/13/16 04:52 Nucleated RBC % Not Reportable 12/13/16 04:52 Seg Neutrophils # 3.5 K/mm3 (1.8-7.7) 12/12/16 07:51 Seg Neutrophils # Man 3.2 K/mm3 (1.8-7.7) 12/13/16 04:52 Band Neutrophils # 0.1 K/mm3 12/13/16 04:52 Lymphocytes # (Manual) 1.5 K/mm3 (1.2-5.4) 12/13/16 04:52 Abs React Lymphs (Man) 0.1 K/mm3 12/13/16 04:52 Monocytes # (Manual) 0.7 K/mm3 (0.0-0.8) 12/13/16 04:52 Eosinophils # (Manual) 0.1 K/mm3 (0.0-0.4) 12/13/16 04:52 Basophils # (Manual) 0.2 K/mm3 (0.0-0.1) H 12/13/16 04:52 Metamyelocytes # 0.0 K/mm3 12/13/16 04:52 Myelocytes # 0.0 K/mm3 12/13/16 04:52 Promyelocytes # 0.0 K/mm3 12/13/16 04:52 Blast Cells # 0.0 K/mm3 12/13/16 04:52 WBC Morphology Not Reportable 12/13/16 04:52 Hypersegmented Neuts Not Reportable 12/13/16 04:52 Hyposegmented Neuts Not Reportable 12/13/16 04:52 Hypogranular Neuts Not Reportable 12/13/16 04:52 Smudge Cells Not Reportable 12/13/16 04:52 Toxic Granulation Not Reportable 12/13/16 04:52 Toxic Vacuolation Not Reportable 12/13/16 04:52 Dohle Bodies Not Reportable 12/13/16 04:52 Pelger-Huet Anomaly Not Reportable 12/13/16 04:52 Zeyad Rods Not Reportable 12/13/16 04:52 Platelet Estimate Consistent w auto 12/13/16 04:52 Clumped Platelets Not Reportable 12/13/16 04:52 Plt Clumps, EDTA Not Reportable 12/13/16 04:52 Large Platelets Few 12/13/16 04:52 Giant Platelets Not Reportable 12/13/16 04:52 Platelet Satelliting Not Reportable 12/13/16 04:52 Plt Morphology Comment Not Reportable 12/13/16 04:52 RBC Morphology Not Reportable 12/13/16 04:52 Dimorphic RBCs Not Reportable 12/13/16 04:52 Polychromasia Not Reportable 12/13/16 04:52 Hypochromasia Not Reportable 12/13/16 04:52 Poikilocytosis Not Reportable 12/13/16 04:52 Anisocytosis 1+ 12/13/16 04:52 Microcytosis Not Reportable 12/13/16 04:52 Macrocytosis Not Reportable 12/13/16 04:52 Spherocytes Not Reportable 12/13/16 04:52 Pappenheimer Bodies Not Reportable 12/13/16 04:52 Sickle Cells Not Reportable 12/13/16 04:52 Target Cells Not Reportable 12/13/16 04:52 Tear Drop Cells Not Reportable 12/13/16 04:52 Ovalocytes Not Reportable 12/13/16 04:52 Helmet Cells Not Reportable 12/13/16 04:52 Fung-[place] Bodies Not Reportable 12/13/16 04:52 Grandy Rings Not Reportable 12/13/16 04:52 [place] Cells Not Reportable 12/13/16 04:52 Bite Cells Not Reportable 12/13/16 04:52 Crenated Cell Not Reportable 12/13/16 04:52 Elliptocytes Not Reportable 12/13/16 04:52 Acanthocytes (Spur) Not Reportable 12/13/16 04:52 Rouleaux Not Reportable 12/13/16 04:52 Hemoglobin C Crystals Not Reportable 12/13/16 04:52 Schistocytes Not Reportable 12/13/16 04:52 Malaria parasites Not Reportable 12/13/16 04:52 [place] Bodies Not Reportable 12/13/16 04:52 Hem Pathologist Commnt No 04/06/17 04:52 PT 14.3 Sec. (12.2-14.9) 12/13/16 04:52 INR 1.12 (0.87-1.13) 12/13/16 04:52 APTT 75.2 Sec. (24.2-36.6) H* 12/13/16 04:52 Heparin Anti-Xa Level < 0.10 U.I./ml (0.3-0.7) L 12/13/16 14:17 Sodium 141 mmol/L (137-145) 12/13/16 04:52 Potassium 4.1 mmol/L (3.6-5.0) 12/13/16 04:52 Chloride 101.3 mmol/L (98-107) 12/13/16 04:52 Carbon Dioxide 25 mmol/L (22-30) 12/13/16 04:52 Anion Gap 19 mmol/L 12/13/16 04:52 BUN 23 mg/dL (9-20) H 12/13/16 04:52 Creatinine 1.0 mg/dL (0.8-1.5) 12/13/16 04:52 Estimated GFR > 60 ml/min 12/13/16 04:52 BUN/Creatinine Ratio 23.00 % 12/13/16 04:52 Glucose 96 mg/dL (75-100) 12/13/16 04:52 Calcium 8.9 mg/dL (8.4-10.2) 12/13/16 04:52 Total Creatine Kinase 123 units/L (55-170) 12/12/16 10:19 CK-MB (CK-2) 6.9 ng/mL (0.0-4.0) H 12/12/16 10:19 CK-MB (CK-2) Rel Index 5.6 (0-4) H 12/12/16 10:19 Troponin T < 0.010 ng/mL (0.00-0.029) 12/12/16 13:47 NT-Pro-B Natriuret Pep 636.3 pg/mL (0-900) 12/12/16 07:51
[2016-12-13] MEDS: ZOCOR PO SCH (22:35)
[2016-12-14 05:56] LABS: Hematocrit 41.8 % (35.5-45.6); Hemoglobin 13.6 gm/dl (11.8-15.2)
--- NOTE | 2016-12-14 09:45 | Discharge Summary ---
Providers - Providers Date of Admission: 12/12/16 09:35 Date of discharge: 12/14/16 Attending physician: LUCÍA GAGE 12/13/16 13:34 Consult to Cardiac Rehabilitation [CONS] Routine Reason For Exam: Cardiac Rehab Evaluation Primary care physician: POWDER CORE TESTER Hospitalization Reason for admission: chest pain Condition: Good Pertinent studies: Chest x-ray; mild congestion Cardiac cath; patent right coronary artery stent, mild nonobstructive disease of proximal LAD Severe dilated cardiomyopathy ejection fraction 10-15% Hospital course: Final diagnosis; Severe ischemic cardiomyopathy with ejection fraction of 15% Outpatient Evaluation for ICD placement and EP studies Hypertension Atypical chest pain negative heart cath Probably secondary to gastroesophageal reflux disease Costochondritis Thrombocytopenia Severe pulmonary hypertension Permanent pacemaker Medical noncompliance with medications 51-year-old male patient with significant past medical history of ischemic dilated cardiomyopathy with ejection fraction of 15% status post permanent pacemaker scheduled to have EP studies for ICD placement evaluation was admitted through emergency room with worsening shortness of breath and chest pain, Patient was evaluated and admitted to hospital symptomatically managed Seen by school health assistant underwent heart cath which revealed patent stent And severely depressed systolic ejection fraction of 15% Patient is on all appropriate medications, advised to continue them Strongly advised to be complains of medications and diet Today he is comfortable in bed denies any chest pain or shortness of breath Alert and awake ambulate tolerating oral nutrition [id number] evaluation and physical examination done by me prior to discharge is unremarkable as detailed below Cleared by cardiology for discharge and follow up with them in the office for EP studies and possible ICD placement Disposition: STILL A PATIENT Time spent for discharge: 32 min Core Measure Documentation - Palliative Care Palliative Care/ Comfort Measures: Not Applicable - Core Measures Any of the following diagnoses?: heart failure - Heart Failure Discharge Requirements VICK/ARB for LVSD if EF <40%: Yes Beta anthony at discharge: Yes Exam - Constitutional Vitals: Temp Pulse Resp BP Pulse Ox 97.7 F 65 20 117/71 95 12/14/16 05:00 12/14/16 05:00 12/14/16 05:00 12/14/16 05:00 12/14/16 05:00 General appearance: Present: no acute distress, well-nourished - EENT Eyes: Present: PERRL, EOM intact - Neck Neck: Present: supple, normal ROM - Respiratory Respiratory effort: normal Respiratory: bilateral: diminished - Cardiovascular Rhythm: regular Heart Sounds: Present: S1 & S2 - Extremities Extremities: no ischemia, pulses intact, pulses symmetrical Peripheral Pulses: within normal limits - Abdominal General gastrointestinal: Present: soft, non-tender, non-distended, normal bowel sounds - Integumentary Integumentary: Present: clear, warm - Musculoskeletal Musculoskeletal: strength equal bilaterally, generalized weakness - Psychiatric Psychiatric: appropriate mood/affect, cooperative - Neurologic Neurologic: CNII-XII intact, moves all extremities Plan Activity: advance as tolerated Diet: low salt, other (Cardiac diet) Additional Instructions: Outpatient EP study for possible ICD placement. Patient strongly advised to comply with medications and diet Follow up with: PRIMARY CAREMD [Primary Care Provider] - 3-5 Days RENNY CORLEY MD [Staff Physician] - 7 Days Prescriptions: Famotidine [Pepcid] 20 mg PO BID #28 tablet
[2016-12-14] MEDS: K-DUR PO SCH (10:06)
[2016-12-14] MEDS: PERCOCET 5/325 PO PRN (10:06)
[2016-12-14] MEDS: IMDUR PO SCH (10:07)
[2016-12-14] MEDS: COREG PO SCH (10:07)
[2016-12-14] MEDS: ZESTRIL PO SCH (10:08)
[2016-12-14 10:09] VITALS: BP 123/81
--- NOTE | 2016-12-14 10:45 | Progress Note ---
Assessment and Plan Chest pain Thrombocytopenia Ischemic cardiomyopathy, LVEF 10-15% CAD s/p PCI Cardiac cath findings this admission 1. Patent RCA stent. 2. Mild nonobstructive proximal LAD stenosis. 3. Severe dilated nonischemic CMP, EF 10-15%. Severe pulmonary hypertension Presence of Permanent pacemaker battery has reached end of life Presence of Loop recorder Non-compliance with medications Recommendation: Resume medical therapy and risk factor modification for his coronary artery disease and ischemic cardiomyopathy. OK for cardiac discharge. Outpatient follow up with EPS, for upgrade of PM to ICD. Subjective Date of service: 12/14/16 Interval history: Patient denies chest pain and shortness of breath. Objective Vital Signs Temp Pulse Pulse Pulse Resp BP BP 12/14/16 10:07 66 123/81 12/14/16 08:45 98.2 F 69 12 123/81 12/14/16 05:00 97.7 F 65 20 117/71 12/14/16 00:00 97.7 F 71 21 125/59 12/13/16 23:34 21 12/13/16 22:00 78 12/13/16 20:00 98.6 F 74 20 114/68 12/13/16 18:06 16 115/74 12/13/16 11:00 57 L Pulse Ox 12/14/16 10:07 12/14/16 08:45 12/14/16 05:00 95 12/14/16 00:00 94 12/13/16 23:34 12/13/16 22:00 12/13/16 20:00 99 12/13/16 18:06 100 12/13/16 11:00 - Physical Examination General: No Apparent Distress HEENT: Positive: PERRL Neck: Positive: trachea midline Cardiac: Positive: Reg Rate and Rhythm Lungs: Positive: Decreased Breath Sounds Neuro: Positive: Grossly Intact - Labs and Meds CBC 12/14/16 Range/Units 05:20 Hgb 13.6 (11.8-15.2) gm/dl Hct 41.8 (35.5-45.6) % Plt Count 104 L (140-440) K/mm3
[2016-12-14] MEDS ORDERED: LASIX IV ONE (12:27)
[2016-12-14] MEDS ORDERED: PEPCID PO SCH (13:00)
== END 2016-12-14 15:09 | disposition home or self-care (01) | DRG 391 ==
LOC: ED 07:09 → 4A 09:35
PROVIDERS: ADMIT Internal Medicine; ATTEND Internal Medicine
PROC: 4A023N7 Measurement of Cardiac Sampling and Pressure, Left Heart, Percutaneous Approach (ICD-10-PCS; principal; 2016-12-13)
PROC: B2151ZZ Fluoroscopy of Left Heart using Low Osmolar Contrast (ICD-10-PCS; 2016-12-13)
PROC: B2111ZZ Fluoroscopy of Multiple Coronary Arteries using Low Osmolar Contrast (ICD-10-PCS; 2016-12-13)
DX: K21.9 Gastro-esophageal reflux disease without esophagitis (principal); I50.23 Acute on chronic systolic (congestive) heart failure; I42.0 Dilated cardiomyopathy; M94.0 Chondrocostal junction syndrome [Tietze]; R07.9 Chest pain, unspecified; I25.10 Atherosclerotic heart disease of native coronary artery without angina pectoris; E78.5 Hyperlipidemia, unspecified; I25.5 Ischemic cardiomyopathy; R07.89 Other chest pain; F10.10 Alcohol abuse, uncomplicated; D69.6 Thrombocytopenia, unspecified; I27.2 Other secondary pulmonary hypertension; F17.210 Nicotine dependence, cigarettes, uncomplicated; Z95.5 Presence of coronary angioplasty implant and graft; Z91.14 Patient's other noncompliance with medication regimen; Z95.0 Presence of cardiac pacemaker; Z71.6 Tobacco abuse counseling; Z82.49 Family history of ischemic heart disease and other diseases of the circulatory system
CPT/HCPCS: 36415; 71010; 80048; 82550; 82553; 82962; 83880; 84484; 85007; 85014; 85018; 85025; 85049; 85520; 85610; 85730; 93005; 93010; 93458; 96374; 96375; 99406; C1894; J1644; J1940; J2250; J2270; J3010; J7040; Q9967

== ENCOUNTER 2020-12-05 17:05 | Observation (INO) | payer OTHER ==
[2020-12-05] MEDS ORDERED: ASPIRIN 325 MG TAB PO ONE (18:16)
--- NOTE | 2020-12-05 18:34 | Emergency Department Report ---
ED Chest Pain HPI - General Chief Complaint: Chest Pain Stated Complaint: CHEST PAIN Time Seen by Provider: 12/05/20 18:00 Source: patient Mode of arrival: Stretcher Limitations: No Limitations - History of Present Illness Initial Comments: 55-year-old male with history of CHF (EF 10-15%), hypertension, CAD with stents, pacemaker, aortic aneurysm, and alcoholic liver disease, presents to ED from local retirement with chest pain x1 hour. Patient reports onset at rest. States pain is pressure-like and located substernally. Reports associated left hand nu mbness and tingling. States pain feels like previous SC. Patient reports associated nausea and vomiting. He denies shortness of breath, diaphoresis. Patient states approximately 4 months ago, just before being incarcerated, he was diagnosed with an aortic aneurysm at [facility]. States he has been unable to follow-up with a vascular physician due to his incarceration. Patient received aspirin and sublingual nitro x3 from EMS prior to ED arrival. Grit Blaster: rocío Pearce MD Complaint: chest pain -: hour(s) (1) Onset: during rest Pain Location: substernal Pain Radiation: LUE Severity: moderate Severity scale (0 -10): 9 Quality: pressure Consistency: constant Improves With: nothing Worsens With: nothing re: nausea, vomting. denies: diaphoresis, dyspnea Other Symptoms: cough. denies: fever Treatments Prior to Arrival: aspirin, nitroglycerin - Related Data Previous Rx's Medication Instructions Recorded Last Taken Type Furosemide [Lasix TAB] 40 mg PO QDAY #30 tablet 12/10/16 Unknown Rx ISOSORBIDE MONOnitrate [Imdur ER] 30 mg PO QDAY #30 tablet 12/10/16 Unknown Rx Potassium Chloride [K-Dur] 20 meq PO QDAY #30 tablet 12/10/16 Unknown Rx Simvastatin (NF) [Zocor TAB] 40 mg PO QHS #30 tablet 12/10/16 Unknown Rx carvediloL [Coreg] 6.25 mg PO BID #60 tablet 12/10/16 Unknown Rx lisinopriL [Zestril TAB] 10 mg PO QDAY #30 tablet 12/10/16 Unknown Rx Famotidine [Pepcid] 20 mg PO BID #28 tablet 12/14/16 Unknown Rx Allergies Allergy/AdvReac Type Severity Reaction Status Date / Time No Known Allergies Allergy Verified 12/06/16 02:13 Heart Score - HEART Score History: Moderately suspicious EKG: Normal Age: 45-65 Risk factors: > 3 risk factors or hx of atherosclerotic disease Troponin: < normal limit HEART Score: 4 ED Review of Systems ROS: Stated complaint: CHEST PAIN Other details as noted in HPI Comment: All other systems reviewed and negative Constitutional: denies: chills, fever ENT: other (Denies loss of smell or taste) Respiratory: cough Cardiovascular: chest pain ED Past Medical Hx - Past Medical History Previous Medical History?: Yes Hx Hypertension: Yes Hx Heart Attack/AMI: Yes Hx Congestive Heart Failure: Yes Hx Liver Disease: Yes Hx Psychiatric Treatment: Yes Hx COPD: Yes - Surgical History Past Surgical History?: Yes Hx Pacemaker: Yes - Social History Smoking Status: Current Every Day Smoker Substance Use Type: Alcohol - Medications Home Medications: Home Medications Medication Instructions Recorded Confirmed Last Taken Type Furosemide [Lasix TAB] 40 mg PO QDAY #30 tablet 12/10/16 Unknown Rx ISOSORBIDE MONOnitrate [Imdur ER] 30 mg PO QDAY #30 tablet 12/10/16 Unknown Rx Potassium Chloride [K-Dur] 20 meq PO QDAY #30 tablet 12/10/16 Unknown Rx Simvastatin (NF) [Zocor TAB] 40 mg PO QHS #30 tablet 12/10/16 Unknown Rx carvediloL [Coreg] 6.25 mg PO BID #60 tablet 12/10/16 Unknown Rx lisinopriL [Zestril TAB] 10 mg PO QDAY #30 tablet 12/10/16 Unknown Rx Famotidine [Pepcid] 20 mg PO BID #28 tablet 12/14/16 Unknown Rx ED Physical Exam - General Limitations: No Limitations General appearance: alert, in no apparent distress - Head Head exam: Present: atraumatic, normocephalic - Eye Eye exam: Present: normal appearance - ENT ENT exam: Present: mucous membranes moist - Neck Neck exam: Present: normal inspection - Respiratory Respiratory exam: Present: normal lung sounds bilaterally. Absent: respiratory distress - Cardiovascular Cardiovascular Exam: Present: regular rate, normal rhythm - GI/Abdominal GI/Abdominal exam: Present: soft. Absent: distended, tenderness - Extremities Exam Extremities exam: Present: normal inspection - Neurological Exam Neurological exam: Present: alert, oriented X3 - Psychiatric Psychiatric exam: Present: normal affect, normal mood - Skin Skin exam: Present: warm, dry, intact, normal color ED Course Vital Signs 12/05/20 12/05/20 12/05/20 18:17 18:23 18:25 Temperature Pulse Rate 64 Respiratory 20 19 Rate Blood Pressure Blood Pressure 146/89 [Left] O2 Sat by Pulse 97 96 Oximetry 12/05/20 12/05/20 12/05/20 18:34 19:00 19:30 Temperature Pulse Rate 65 60 62 Respiratory 16 16 18 Rate Blood Pressure 146/89 146/89 168/102 Blood Pressure [Left] O2 Sat by Pulse 96 95 96 Oximetry 12/05/20 12/05/20 12/05/20 20:00 20:30 21:00 Temperature Pulse Rate 60 60 71 Respiratory 16 13 15 Rate Blood Pressure 168/102 168/102 168/102 Blood Pressure [Left] O2 Sat by Pulse 95 95 94 Oximetry 12/05/20 12/05/20 12/05/20 21:30 22:00 22:10 Temperature Pulse Rate 60 60 61 Respiratory 15 13 16 Rate Blood Pressure 162/111 166/100 169/129 Blood Pressure [Left] O2 Sat by Pulse 94 93 95 Oximetry 12/05/20 12/05/20 12/05/20 22:20 22:30 22:40 Temperature Pulse Rate 60 60 66 Respiratory 12 11 L 11 L Rate Blood Pressure 169/129 169/129 169/129 Blood Pressure [Left] O2 Sat by Pulse 94 94 94 Oximetry 12/05/20 12/05/20 22:50 23:05 Temperature 98.7 F Pulse Rate 60 83 Respiratory 15 18 Rate Blood Pressure 169/129 187/114 Blood Pressure [Left] O2 Sat by Pulse 96 94 Oximetry BLANE score - Blane Score Age > 65: (0) No Aspirin use within the Past 7 Days: (0) No 3 or more CAD Risk Factors: (1) Yes 2 or more Angina events in past 24 hrs: (1) Yes Known CAD with more than 50% Stenosis: (1) Yes Elevated Cardiac Markers: (0) No ST Deviation Greater than 0.5mm: (0) No BLANE Score: 3 ED Medical Decision Making - Lab Data Result diagrams: 12/05/20 18:20 12/05/20 18:20 - EKG Data -: EKG Interpreted by Id EKG shows normal: sinus rhythm, ST-T waves - EKG Data When compared to previous EKG there are: no significant change (Compared to 01/2017) Interpretation: no acute changes, other (LBBB) - Radiology Data Radiology results: report reviewed, image reviewed - Medical Decision Making 55-year-old male, history of CAD, presents to ED complaining of chest pain, similar to previous SC. EKG shows left bundle branch block which is unchanged compared to previous EKG. No ST changes present. Troponin is negative x2. CTA chest was unremarkable for any aortic pathology or any other findings. Patient was given aspirin, nitro, morphine. Patient states he is feeling much better at this time. He is currently incarcerated and has been unable to follow-up with his tmh teacher in the last 4 months due to incarceration. Patient will be admitted by hospitalist, Dr. Garcia, for further evaluation of his chest pain. - Differential Diagnosis ACS, CHF, aortic dissection, aortic aneurysm Critical care attestation.: If time is entered above; I have spent that time in minutes in the direct care of this critically ill patient, excluding procedure time. ED Disposition Clinical Impression: Chest pain Disposition: [id number] OP ADMIT IP TO THIS HOSP Is pt being admited?: Yes Condition: Stable Time of Disposition: 21:39
[2020-12-05 18:44] LABS: Basophils % (Auto) 0.5 % (0.0-1.8); Eosinophils # (Auto) 0.4 K/mm3 (0.0-0.4); Eosinophils % (Auto) 5.6 % (0.0-4.3); Hematocrit 43.9 % (35.5-45.6); Hemoglobin 14.9 gm/dl (11.8-15.2); Lymphocytes # (Auto) 2.1 K/mm3 (1.2-5.4); Lymphocytes % (Auto) 33.2 % (13.4-35.0); Mean Corpuscular HGB Conc 34 % (32-34); Mean Corpuscular Volume 94 fl (84-94); Monocytes # (Auto) 0.5 K/mm3 (0.0-0.8); Platelet Count 100 K/mm3 (140-440); Red Blood Count 4.66 M/mm3 (3.65-5.03); Red Cell Distribution Width 13.9 % (13.2-15.2)
--- NOTE | 2020-12-05 18:51 | XRay Report ---
XR chest routine 2V INDICATION / CLINICAL INFORMATION: chest pain. COMPARISON: 12/12/2016 FINDINGS: SUPPORT DEVICES: Left transvenous AICD. HEART / MEDIASTINUM: Mild cardiac enlargement. LUNGS / PLEURA: Mild pulmonary vascular congestion. No airspace disease. Traction costophrenic sulci are sharp. No pneumothorax. ADDITIONAL FINDINGS: No significant additional findings. IMPRESSION: 1. Mild pulmonary vascular congestion. Otherwise, no significant abnormality. Signer Name: Willie Stein MD Signed: 12/05/2020 6:47 PM Workstation Name: [id number]
[2020-12-05 19:00] LABS: Alanine Aminotransferase 31 units/L (7-56); Albumin 4.1 g/dL (3.9-5); BUN/Creatinine Ratio 11; Blood Urea Nitrogen 12 mg/dL (9-20); Calcium 9.2 mg/dL (8.4-10.2); Hemolysis Index 154
[2020-12-05] MEDS ORDERED: MORPHINE 2 MG/1 ML INJ IV ONE (20:10)
--- NOTE | 2020-12-05 21:19 | Cat Scan Report ---
CTA CHEST WITH CONTRAST INDICATION / CLINICAL INFORMATION: chest pain; hx aortic aneurysm. TECHNIQUE: Axial CT images were obtained through the chest after injection of IV contrast. 3 plane MIP and/or 3D reconstructions were produced. All CT scans at this location are performed using CT dose reduction f or ALARA by means of automated exposure control. COMPARISON: Prior chest radiograph 12/05/2020. No prior CTA chest. FINDINGS: PULMONARY ARTERIES: No pulmonary emboli. THORACIC AORTA: No significant abnormality. Ascending aortic cross-sectional diameter measures 3.7 cm . Descending aortic measurement is 2.4 cm cross-section. HEART: Left chest wall cardiac device with leads terminating in the right atrium and ventricle. CORONARY ARTERIES: Moderate coronary artery calcifications. MEDIASTINUM / TANISHA: No significant abnormality. PLEURA: No pleural effusion. No pneumothorax. LUNGS: No acute air space or interstitial disease. ADDITIONAL FINDINGS: None. UPPER ABDOMEN: No acute findings. Cirrhotic appearance of the liver with nodular contour. SKELETAL STRUCTURES: Multilevel degenerative changes are noted of the spine. No aggressive osseous le sions. Multiple healing right-sided rib fractures are noted. IMPRESSION: 1. No CT evidence for pulmonary embolism. 2. No acute findings. Signer Name: Addison Levine MD Signed: 12/05/2020 9:15 PM Workstation Name: [id number]
[2020-12-05] MEDS ORDERED: traMADol 50 MG TAB PO PRN (21:57)
[2020-12-05] MEDS ORDERED: ACETAMINOPHEN 325 MG TAB PO PRN ×2 (21:57)
[2020-12-05] MEDS ORDERED: NITROGLYCERIN 0.4 MG TAB SUBL SL PRN (21:57)
[2020-12-05] MEDS ORDERED: MAGNESIUM HYDROXIDE (MOM) ORAL LIQD UDC PO PRN (21:57)
--- NOTE | 2020-12-05 22:07 | History and Physical Report ---
History of Present Illness Date of examination: 12/05/20 Date of admission: 12/05/20 21:40 Chief complaint: Chest Pain History of present illness: 35-year-old male with known history of hypertension, coronary artery disease with stent placement in the past, pacemaker, aortic aneurysm, alcoholic liver disease, history of CHF with ejection fraction of 10 to 15% presenting to the emergency room today complaining of chest pain. Chest pain has been ongoing for about an hour prior to presenting in the emergency room. Chest pain felt like pressure and located in the substernal area radiating to the left upper extremity and lower left side of his jaw. He had some numbness and tingling sensation in the left upper extremity. Patient indicates that the pain felt like when he had the myocardial infarction. He had associated nausea but no vomiting. He has no known relieving or exacerbating factor. He denies any headache or dizziness, denies any diaphoresis. Patient is currently incarcerated and he has not had any follow-up with any physiology teacher recently. He follows up with a physiology teacher at [facility]. Few months just before incarceration indicates that he was diagnosed with aortic aneurysm at [facility]. Work-up so far in the emergency room including CT angiogram of the chest, troponin and EKG has not shown any acute findings. Patient is being admitted for chest pain work-up. Past History Past Medical History: CAD, COPD, heart failure, hypertension, liver disease Past Surgical History: PTCA, Other (Pacemaker) Social history: smoking (Current daily smoker however he has not smoked in the past few months because he is incarcerated.), alcohol abuse Family history: no significant family history Medications and Allergies Allergies Allergy/AdvReac Type Severity Reaction Status Date / Time No Known Allergies Allergy Verified 12/06/16 02:13 Home Medications Medication Instructions Recorded Confirmed Last Taken Type Furosemide [Lasix TAB] 40 mg PO QDAY #30 tablet 12/10/16 Unknown Rx ISOSORBIDE MONOnitrate [Imdur ER] 30 mg PO QDAY #30 tablet 12/10/16 Unknown Rx Potassium Chloride [K-Dur] 20 meq PO QDAY #30 tablet 12/10/16 Unknown Rx Simvastatin (NF) [Zocor TAB] 40 mg PO QHS #30 tablet 12/10/16 Unknown Rx carvediloL [Coreg] 6.25 mg PO BID #60 tablet 12/10/16 Unknown Rx lisinopriL [Zestril TAB] 10 mg PO QDAY #30 tablet 12/10/16 Unknown Rx Famotidine [Pepcid] 20 mg PO BID #28 tablet 12/14/16 Unknown Rx Active Meds: Active Medications Acetaminophen (Acetaminophen 325 Mg Tab) 650 mg PO Q6H PRN PRN Reason: Pain, Mild (1-3) Acetaminophen (Acetaminophen 325 Mg Tab) 650 mg PO Q4H PRN PRN Reason: Pain MILD(1-3)/Fever >100.5/GURROLA Aspirin (Aspirin Ec 325 Mg Tab) 325 mg PO QDAY [facility] Heparin Sodium (Porcine) (Heparin 5,000 Unit/1 Ml Vial) 5,000 unit SUB-Q Q8HR [facility] Magnesium Hydroxide (Magnesium Hydroxide (Mom) Oral Liqd Udc) 30 ml PO Q4H PRN PRN Reason: Constipation Morphine Sulfate (Morphine 4 Mg/1 Ml Inj) 2 mg IV Q5MIN PRN PRN Reason: Chest Pain Nitroglycerin (Nitroglycerin 0.4 Mg Tab Subl) 0.4 mg SL Q5M PRN PRN Reason: Chest Pain Ondansetron HCl (Ondansetron 4 Mg/2 Ml Inj) 4 mg IV Q8H PRN PRN Reason: Nausea And Vomiting Sodium Chloride (Sodium Chloride 0.9% 10 Ml Flush Syringe) 10 ml IV PRN PRN PRN Reason: LINE FLUSH Sodium Chloride (Sodium Chloride 0.9% 10 Ml Flush Syringe) 10 ml IV BID GLORIA Sodium Chloride (Sodium Chloride 0.9% 10 Ml Flush Syringe) 10 ml IV PRN PRN PRN Reason: LINE FLUSH Tramadol HCl (Tramadol 50 Mg Tab) 50 mg PO Q6H PRN PRN Reason: Pain, Moderate (4-6) Review of Systems Constitutional: no fever, no chills, no sweats Ears, nose, mouth and throat: no nasal congestion, no sore throat Cardiovascular: chest pain, no orthopnea, no palpitations Respiratory: no cough, no shortness of breath Gastrointestinal: nausea, no abdominal pain, no vomiting Genitourinary Male: no dysuria, no hematuria, no flank pain, no nocturia Musculoskeletal: no neck pain, no low back pain Integumentary: no rash, no pruritis Neurological: no headaches, no confusion Psychiatric: no anxiety, no depression Exam - Constitutional Vitals: Temp Pulse Resp BP Pulse Ox 71 15 168/102 94 12/05/20 21:00 12/05/20 21:00 12/05/20 21:00 12/05/20 21:00 General appearance: Present: no acute distress, well-nourished - EENT Eyes: Present: PERRL, EOM intact. Absent: scleral icterus ENT: hearing intact, clear oral mucosa, dentition normal - Neck Neck: Present: supple, normal ROM - Respiratory Respiratory effort: normal Respiratory: bilateral: CTA - Cardiovascular Rhythm: regular Heart Sounds: Present: S1 & S2. Absent: gallop, systolic murmur, diastolic murmur, rub, click - Extremities Extremities: no ischemia, pulses intact, pulses symmetrical, No edema, normal temperature, normal color, Full ROM Peripheral Pulses: within normal limits - Abdominal General gastrointestinal: Present: soft, non-tender, non-distended, normal bowel sounds. Absent: mass - Integumentary Integumentary: Present: clear, warm, dry - Musculoskeletal Musculoskeletal: strength equal bilaterally - Psychiatric Psychiatric: appropriate mood/affect, intact judgment & insight, memory intact, cooperative - Neurologic Neurologic: CNII-XII intact, moves all extremities HEART Score - HEART Score History: Slightly suspicious EKG: Normal Age: 45-65 Risk factors: > 3 risk factors or hx of atherosclerotic disease Troponin: Troponin T < 0.010 ng/mL (0.00-0.029) 12/05/20 21:28 Troponin: < normal limit HEART Score: 3 Results - Labs CBC & Chem 7: 12/05/20 18:20 12/05/20 18:20 Labs: Abnormal lab results 12/05/20 Range/Units 18:20 Plt Count 100 L (140-440) K/mm3 [place] % (Auto) 8.0 H (0.0-7.3) % Eos % (Auto) 5.6 H (0.0-4.3) % Assessment and Plan - Patient Problems (1) Chest pain Current Visit: Yes Status: Acute Plan to address problem: Patient admitted and placed on telemetry. We will check serial cardiac enzymes. Patient placed on daily aspirin, sublingual nitroglycerin and IV morphine as needed for chest pain. We will place consult to cardiology for evaluation. (2) Dilated cardiomyopathy Current Visit: Yes Status: Acute Plan to address problem: Patient has no known history of severe dilated cardiomyopathy with ejection fraction of 10 to 15%. We will schedule patient for an echocardiogram . We await further evaluation by cardiology. (3) Hypertension Current Visit: Yes Status: Acute Plan to address problem: We will resume routine home medications and monitor vital signs closely. (4) DVT prophylaxis Current Visit: Yes Status: Acute Plan to address problem: Patient placed on subcutaneous heparin. (5) Full code status Current Visit: Yes Status: Acute Plan to address problem: Patient is full code.
[2020-12-06] MEDS ORDERED: hydrALAZINE 20 MG/1 ML INJ IV PRN (00:22)
[2020-12-06] MEDS: MORPHINE 4 MG/1 ML INJ IV PRN ×4 (01:38→14:48)
[2020-12-06 06:01] LABS: Basophils # (Auto) 0.1 K/mm3 (0.0-0.1); Basophils % (Auto) 0.9 % (0.0-1.8); Eosinophils # (Auto) 0.4 K/mm3 (0.0-0.4); Hematocrit 43.5 % (35.5-45.6); Hemoglobin 14.8 gm/dl (11.8-15.2); Lymphocytes # (Auto) 2.5 K/mm3 (1.2-5.4); Lymphocytes % (Auto) 34.6 % (13.4-35.0); Mean Corpuscular HGB Conc 34 % (32-34); Mean Corpuscular Volume 93 fl (84-94); Monocytes # (Auto) 0.6 K/mm3 (0.0-0.8); Monocytes % (Auto) 8.2 % (0.0-7.3); Platelet Count 108 K/mm3 (140-440); Red Blood Count 4.67 M/mm3 (3.65-5.03); Red Cell Distribution Width 13.8 % (13.2-15.2)
[2020-12-06 06:08] LABS: INR 1.08 (0.87-1.13)
[2020-12-06 06:48] LABS: BUN/Creatinine Ratio 10; Blood Urea Nitrogen 11 mg/dL (9-20); Calcium 9.8 mg/dL (8.4-10.2); Chol/HDL Ratio 2.45 %; HDL Cholesterol 62 mg/dL (40-59); Hemolysis Index 87; LDL Cholesterol,Direct 83 mg/dL (50-130)
[2020-12-06] MEDS: HEPARIN 5,000 UNIT/1 ML VIAL SUB-Q SCH ×3 (07:03→21:17)
[2020-12-06] MEDS ORDERED: LISINOPRIL 10 MG TAB PO SCH (10:00)
--- NOTE | 2020-12-06 10:48 | Progress Note ---
Assessment and Plan Assessment and plan: 35-year-old male with known history of hypertension, coronary artery disease with stent placement in the past, pacemaker, aortic aneurysm, alcoholic liver disease, history of CHF with ejection fraction of 10 to 15% presenting to the emergency room today complaining of chest pain. Chest pain has been ongoing for about an hour prior to presenting in the emergency room. Chest pain felt like pressure and located in the substernal area radiating to the left upper extremity and lower left side of his jaw. He had some numbness and tingling sensation in the left upper extremity. Patient indicates that the pain felt like when he had the myocardial infarction. He had associated nausea but no vomiting. He has no known relieving or exacerbating factor. He denies any headache or dizziness, denies any diaphoresis. Patient is currently incarcerated and he has not had any follow-up with any pony trimmer recently. He follows up with a pony trimmer at [facility]. Few months just before incarceration indicates that he was diagnosed with aortic aneurysm at [facility]. Work-up so far in the emergency room including CT angiogram of the chest, troponin and EKG has not shown any acute findings. Chest pain Dilated cardiomyopathy. Patient with no history of dilated cardiomyopathy with EF of 10 to 15%. Hypertension 12/06/2020. Await cardiology evaluation. Follow-up echocardiogram. Continue to trend cardiac isoenzymes. Await stress test evaluation. History Interval history: no new issues Hospitalist Physical - Constitutional Vitals: Temp Pulse Resp BP Pulse Ox 98.7 F 64 20 153/85 94 12/06/20 07:50 12/06/20 07:50 12/06/20 07:50 12/06/20 07:50 12/06/20 07:50 General appearance: Present: no acute distress, well-nourished - EENT Eyes: Present: PERRL, EOM intact ENT: hearing intact, clear oral mucosa, dentition normal - Neck Neck: Present: supple, normal ROM - Respiratory Respiratory effort: normal Respiratory: bilateral: CTA - Cardiovascular Rhythm: regular Heart Sounds: Present: S1 & S2. Absent: gallop, rub - Extremities Extremities: no ischemia, No edema, Full ROM - Abdominal General gastrointestinal: soft, non-tender, non-distended, normal bowel sounds - Integumentary Integumentary: Present: clear, warm, dry - Neurologic Neurologic: CNII-XII intact, moves all extremities HEART Score - HEART Score EKG: Normal Age: 45-65 Risk factors: > 3 risk factors or hx of atherosclerotic disease Troponin: Troponin T < 0.010 ng/mL (0.00-0.029) 12/06/20 05:35 Troponin: < normal limit Results - Labs CBC & Chem 7: 12/06/20 05:35 12/06/20 05:35 Labs: Laboratory Last Values WBC 7.2 K/mm3 (4.5-11.0) 12/06/20 05:35 RBC 4.67 M/mm3 (3.65-5.03) 12/06/20 05:35 Hgb 14.8 gm/dl (11.8-15.2) 12/06/20 05:35 Hct 43.5 % (35.5-45.6) 12/06/20 05:35 MCV 93 fl (84-94) 12/06/20 05:35 MCH 32 pg (28-32) 12/06/20 05:35 MCHC 34 % (32-34) 12/06/20 05:35 RDW 13.8 % (13.2-15.2) 12/06/20 05:35 Plt Count 108 K/mm3 (140-440) L 12/06/20 05:35 Lymph % (Auto) 34.6 % (13.4-35.0) 12/06/20 05:35 Mchenry % (Auto) 8.2 % (0.0-7.3) H 12/06/20 05:35 Eos % (Auto) 5.0 % (0.0-4.3) H 12/06/20 05:35 Baso % (Auto) 0.9 % (0.0-1.8) 12/06/20 05:35 Lymph # (Auto) 2.5 K/mm3 (1.2-5.4) 12/06/20 05:35 Mchenry # (Auto) 0.6 K/mm3 (0.0-0.8) 12/06/20 05:35 Eos # (Auto) 0.4 K/mm3 (0.0-0.4) 12/06/20 05:35 Baso # (Auto) 0.1 K/mm3 (0.0-0.1) 12/06/20 05:35 Seg Neutrophils % 51.3 % (40.0-70.0) 12/06/20 05:35 Seg Neutrophils # 3.7 K/mm3 (1.8-7.7) 12/06/20 05:35 PT 13.9 Sec. (12.2-14.9) 12/06/20 05:35 INR 1.08 (0.87-1.13) 12/06/20 05:35 Sodium 146 mmol/L (137-145) H 12/06/20 05:35 Potassium 4.2 mmol/L (3.6-5.0) 12/06/20 05:35 Chloride 105.0 mmol/L (98-107) 12/06/20 05:35 Carbon Dioxide 27 mmol/L (22-30) 12/06/20 05:35 Anion Gap 18 mmol/L 12/06/20 05:35 BUN 11 mg/dL (9-20) 12/06/20 05:35 Creatinine 1.1 mg/dL (0.8-1.3) 12/06/20 05:35 Estimated GFR > 60 ml/min 12/06/20 05:35 BUN/Creatinine Ratio 10 % 12/06/20 05:35 Glucose 96 mg/dL (75-100) 12/06/20 05:35 Calcium 9.8 mg/dL (8.4-10.2) 12/06/20 05:35 Total Bilirubin 0.60 mg/dL (0.1-1.2) 12/05/20 18:20 AST 39 units/L (5-40) 12/05/20 18:20 ALT 31 units/L (7-56) 12/05/20 18:20 Alkaline Phosphatase 102 units/L (35-129) 12/05/20 18:20 Troponin T < 0.010 ng/mL (0.00-0.029) 12/06/20 05:35 Total Protein 7.0 g/dL (6.3-8.2) 12/05/20 18:20 Albumin 4.1 g/dL (3.9-5) 12/05/20 18:20 Albumin/Globulin Ratio 1.4 % 12/05/20 18:20 Triglycerides 119 mg/dL (2-149) 12/06/20 05:35 Cholesterol 152 mg/dL (50-199) 12/06/20 05:35 LDL Cholesterol Direct 83 mg/dL (50-130) 12/06/20 05:35 HDL Cholesterol 62 mg/dL (40-59) H 12/06/20 05:35 Cholesterol/HDL Ratio 2.45 % 12/06/20 05:35 Swann/IV: Voiding Method Toilet Active Medications - Current Medications Current Medications: Generic Name Dose Route Start Last Admin Trade Name Freq PRN Reason Stop Dose Admin Acetaminophen 650 mg 12/05/20 21:57 Acetaminophen 325 Mg Tab PO Q4H PRN Pain MILD(1-3)/Fever >100.5/GURROLA Aspirin 325 mg 12/06/20 10:00 Aspirin Ec 325 Mg Tab PO QDAY [facility] Carvedilol 6.25 mg 12/06/20 10:00 Carvedilol 6.25 Mg Tab PO BID [facility] Famotidine 20 mg 12/06/20 10:00 Famotidine 20 Mg Tab PO BID [facility] Furosemide 40 mg 12/06/20 10:00 Furosemide 40 Mg Tab PO QDAY [facility] Heparin Sodium (Porcine) 5,000 unit 12/06/20 06:00 12/06/20 07:03 Heparin 5,000 Unit/1 Ml Vial SUB-Q 5,000 unit Q8HR [facility] Administration Hydralazine HCl 10 mg 12/06/20 00:22 12/06/20 03:49 Hydralazine 20 Mg/1 Ml Inj IV 10 mg Q4HR PRN Administration Blood Pressure Isosorbide Mononitrate 30 mg 12/06/20 10:00 Isosorbide Mononitrate Er 30 Mg Tab PO QDAY [facility] Lisinopril 10 mg 12/06/20 10:00 Lisinopril 10 Mg Tab PO QDAY [facility] Magnesium Hydroxide 30 ml 12/05/20 21:57 Magnesium Hydroxide (Mom) Oral Liqd Udc PO Q4H PRN Constipation Morphine Sulfate 2 mg 12/05/20 21:57 12/06/20 08:49 Morphine 4 Mg/1 Ml Inj IV 2 mg Q5MIN PRN Administration Chest Pain Nitroglycerin 0.4 mg 12/05/20 21:57 Nitroglycerin 0.4 Mg Tab Subl SL Q5M PRN Chest Pain Ondansetron HCl 4 mg 12/05/20 21:57 Ondansetron 4 Mg/2 Ml Inj IV Q8H PRN Nausea And Vomiting Pravastatin Sodium 80 mg 12/06/20 22:00 Pravastatin 80 Mg Tab PO QHS [facility] Sodium Chloride 10 ml 12/05/20 21:57 Sodium Chloride 0.9% 10 Ml Flush Syringe IV PRN PRN LINE FLUSH Sodium Chloride 10 ml 12/05/20 22:00 12/05/20 22:24 Sodium Chloride 0.9% 10 Ml Flush Syringe IV 10 ml BID [facility] Administration Tramadol HCl 50 mg 12/05/20 21:57 Tramadol 50 Mg Tab PO Q6H PRN Pain, Moderate (4-6)
[2020-12-06] MEDS: ASPIRIN EC 325 MG TAB PO SCH (11:06)
[2020-12-06] MEDS: FUROSEMIDE 40 MG TAB PO SCH (11:07)
[2020-12-06] MEDS: FAMOTIDINE 20 MG TAB PO SCH ×2 (11:07→21:18)
[2020-12-06] MEDS: carvediloL 6.25 MG TAB PO SCH ×2 (11:07→21:17)
--- NOTE | 2020-12-06 12:23 | Consultation ---
History of Present Illness Consult date: 12/06/20 Consult reason: chest pain History of present illness: This is a 55-year old M currently incarcerated at the [facility]. He has a cardiac history of coronary artery disease, ischemic cardiomyopathy, and has an indwelling cardiac defibrillator (Medtronic). He has had extensive cardiac work with a cardiac cath in 2017 at this hospital and again 6 months ago at [facility] which reports patent RCA stent. No significant residual coronary stenosis. His latest echocardiogram demonstrates persistent dilated cardiomyopathy with an ejection fraction 15-20%. Patient is admitted with chest pain. Chest pain is poorly characterized, non- exertiona, associated with shortness of breath. There is no lower extremity edema. Denies palpitations and denies AICD discharge. Chest x-ray reports mild cardiomegaly but no evidence of interstitial edema. Chest CTA is negative for pulmonary embolus. Cycled troponin T measures were normal. 12-lead ECG is sinus rhythm with a chronic LBBB. Cardiology consultation was requested for evaluation and further recommendations. Past History Past Medical History: CAD, COPD, heart failure, hypertension, liver disease Past Surgical History: PTCA, Other (ICD) Social history: smoking (Current daily smoker however he has not smoked in the past few months because he is incarcerated.), alcohol abuse Family history: no significant family history Medications and Allergies Allergies Allergy/AdvReac Type Severity Reaction Status Date / Time No Known Allergies Allergy Verified 12/06/16 02:13 Home Medications Medication Instructions Recorded Confirmed Last Taken Type Furosemide [Lasix TAB] 40 mg PO QDAY #30 tablet 12/10/16 Unknown Rx ISOSORBIDE MONOnitrate [Imdur ER] 30 mg PO QDAY #30 tablet 12/10/16 Unknown Rx Potassium Chloride [K-Dur] 20 meq PO QDAY #30 tablet 12/10/16 Unknown Rx Simvastatin (NF) [Zocor TAB] 40 mg PO QHS #30 tablet 12/10/16 Unknown Rx carvediloL [Coreg] 6.25 mg PO BID #60 tablet 12/10/16 Unknown Rx lisinopriL [Zestril TAB] 10 mg PO QDAY #30 tablet 12/10/16 Unknown Rx Famotidine [Pepcid] 20 mg PO BID #28 tablet 12/14/16 Unknown Rx Active Meds: Active Medications Acetaminophen (Acetaminophen 325 Mg Tab) 650 mg PO Q4H PRN PRN Reason: Pain MILD(1-3)/Fever >100.5/GURROLA Aspirin (Aspirin Ec 325 Mg Tab) 325 mg PO QDAY [facility] Last Admin: 12/06/20 11:06 Dose: 325 mg Documented by: Carvedilol (Carvedilol 6.25 Mg Tab) 6.25 mg PO BID [facility] Last Admin: 12/06/20 11:07 Dose: 6.25 mg Documented by: Famotidine (Famotidine 20 Mg Tab) 20 mg PO BID [facility] Last Admin: 12/06/20 11:07 Dose: 20 mg Documented by: Furosemide (Furosemide 40 Mg Tab) 40 mg PO QDAY [facility] Last Admin: 12/06/20 11:07 Dose: 40 mg Documented by: Heparin Sodium (Porcine) (Heparin 5,000 Unit/1 Ml Vial) 5,000 unit SUB-Q Q8HR [facility] Last Admin: 12/06/20 07:03 Dose: 5,000 unit Documented by: Hydralazine HCl (Hydralazine 20 Mg/1 Ml Inj) 10 mg IV Q4HR PRN PRN Reason: Blood Pressure Last Admin: 12/06/20 03:49 Dose: 10 mg Documented by: Isosorbide Mononitrate (Isosorbide Mononitrate Er 30 Mg Tab) 30 mg PO QDAY [facility] Last Admin: 12/06/20 11:06 Dose: 30 mg Documented by: Lisinopril (Lisinopril 10 Mg Tab) 10 mg PO QDAY [facility] Last Admin: 12/06/20 11:07 Dose: 10 mg Documented by: Magnesium Hydroxide (Magnesium Hydroxide (Mom) Oral Liqd Ud) 30 ml PO Q4H PRN PRN Reason: Constipation Morphine Sulfate (Morphine 4 Mg/1 Ml Inj) 2 mg IV Q5MIN PRN PRN Reason: Chest Pain Last Admin: 12/06/20 08:49 Dose: 2 mg Documented by: Nitroglycerin (Nitroglycerin 0.4 Mg Tab Subl) 0.4 mg SL Q5M PRN PRN Reason: Chest Pain Ondansetron HCl (Ondansetron 4 Mg/2 Ml Inj) 4 mg IV Q8H PRN PRN Reason: Nausea And Vomiting Pravastatin Sodium (Pravastatin 80 Mg Tab) 80 mg PO QHS [facility] Sodium Chloride (Sodium Chloride 0.9% 10 Ml Flush Syringe) 10 ml IV PRN PRN PRN Reason: LINE FLUSH Sodium Chloride (Sodium Chloride 0.9% 10 Ml Flush Syringe) 10 ml IV BID [facility] Last Admin: 12/06/20 11:08 Dose: 10 ml Documented by: Tramadol HCl (Tramadol 50 Mg Tab) 50 mg PO Q6H PRN PRN Reason: Pain, Moderate (4-6) Review of Systems Cardiovascular: chest pain, dyspnea on exertion, no palpitations, no rapid/irregular heart beat, no edema, no syncope, no lightheadedness Physical Examination Vital Signs Resp Pulse Ox 20 97 12/05/20 18:17 12/05/20 18:17 General appearance: no acute distress, obese HEENT: Positive: PERRL Neck: Positive: trachea midline Cardiac: Positive: Reg Rate and Rhythm Lungs: Positive: Decreased Breath Sounds Neuro: Positive: Grossly Intact Extremities: Absent: edema Results 12/06/20 05:35 12/06/20 05:35 Cardiac Enzymes 12/05/20 Range/Units 18:20 AST 39 (5-40) units/L Coagulation 12/06/20 Range/Units 05:35 PT 13.9 (12.2-14.9) Sec. INR 1.08 (0.87-1.13) Lipids 12/06/20 Range/Units 05:35 Triglycerides 119 (2-149) mg/dL Cholesterol 152 (50-199) mg/dL HDL Cholesterol 62 H (40-59) mg/dL Cholesterol/HDL Ratio 2.45 % CBC 12/05/20 12/06/20 Range/Units 18:20 05:35 WBC 6.3 7.2 (4.5-11.0) K/mm3 RBC 4.66 4.67 (3.65-5.03) M/mm3 Hgb 14.9 14.8 (11.8-15.2) gm/dl Hct 43.9 43.5 (35.5-45.6) % Plt Count 100 L 108 L (140-440) K/mm3 Lymph # (Auto) 2.1 2.5 (1.2-5.4) K/mm3 [place] # (Auto) 0.5 0.6 (0.0-0.8) K/mm3 Eos # (Auto) 0.4 0.4 (0.0-0.4) K/mm3 Baso # (Auto) 0.0 0.1 (0.0-0.1) K/mm3 Comprehensive Metabolic Panel 12/05/20 12/06/20 Range/Units 18:20 05:35 Sodium 140 146 H (137-145) mmol/L Potassium 4.7 4.2 (3.6-5.0) mmol/L Chloride 104.3 105.0 (98-107) mmol/L Carbon Dioxide 27 27 (22-30) mmol/L BUN 12 11 (9-20) mg/dL Creatinine 1.1 1.1 (0.8-1.3) mg/dL Glucose 83 96 (75-100) mg/dL Calcium 9.2 9.8 (8.4-10.2) mg/dL AST 39 (5-40) units/L ALT 31 (7-56) units/L Alkaline Phosphatase 102 (35-129) units/L Total Protein 7.0 (6.3-8.2) g/dL Albumin 4.1 (3.9-5) g/dL Assessment and Plan Atypical chest pain Hx of coronary artery disease He has had extensive cardiac work with a cardiac cath in 2017 at this hospital and again 6 months ago [address] [facility] which reports patent RCA stent. No significant residual coronary stenosis. Hx of Ischemic cardiomyopathy 05/[address] [facility] reports persistent dilated cardiomyopathy with an ejection fraction 15-20%. Indwelling cardiac defibrillator (Medtronic) LBBB, chronic
[2020-12-06] MEDS: LISINOPRIL 40 MG TAB PO SCH (14:50)
[2020-12-06] MEDS: SPIRONOLACTONE 25 MG TAB PO SCH (14:51)
[2020-12-06] MEDS: ONDANSETRON 4 MG/2 ML INJ IV PRN (15:13)
[2020-12-06] MEDS ORDERED: PRAVASTATIN 80 MG TAB PO SCH (22:00)
[2020-12-06] MEDS ORDERED: NON-FORMULARY EACH (Simvastatin 40 MG Tablet) PO SCH (22:00)
[2020-12-07] MEDS: HEPARIN 5,000 UNIT/1 ML VIAL SUB-Q SCH ×2 (06:10→13:43)
[2020-12-07] MEDS: MORPHINE 4 MG/1 ML INJ IV PRN ×3 (06:48→14:11)
--- NOTE | 2020-12-07 08:44 | Discharge Summary ---
Providers - Providers Date of Admission: 12/05/20 21:40 Date of discharge: 12/07/20 Attending physician: RICCARDO NULL 12/05/20 Consult to Cardiac Rehabilitation [CONS] Routine Reason For Exam: Phase I 12/05/20 21:57 Consult to Cardiology [CONS] Routine Consulting Provider: TABATHA SAM Reason For Exam: chest pain Primary care physician: HUMBERTO BLUE Hospitalization Reason for admission: cp Condition: Stable Hospital course: This is a 55-year old M currently incarcerated at the [facility]. He has a cardiac history of coronary artery disease, ischemic cardiomyopathy, and has an indwelling cardiac defibrillator ([employer]). He has had extensive cardiac work with a cardiac cath in 2017 at this hospital and again 6 months ago at [facility] which reports patent RCA stent. No significant residual coronary stenosis. His latest echocardiogram demonstrates persistent dilated cardiomy opathy with an ejection fraction 15-20%. Patient was admitted with chest pain. Chest pain was poorly characterized, non- exertiona, associated with shortness of breath. There was no lower extremity e rafael. No palpitations or AICD discharge. Chest x-ray reported mild cardiomegaly but no evidence of interstitial edema. Chest CTA was negative for pulmonary embolus. Cycled troponin T measurements were normal. 12-lead ECG is sinus rhythm with a chronic LBBB. Cardiology consultation was requested for evaluation and further recommendations. Recommendations of cardiology was no further cardiac work-up at this time. 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 Plating Foreman recommended discharge from their standpoint. Etiology of chest pain likely related to GERD versus stable angina. Dedicated discharge time 35 minutes. Disposition: DC-01 TO HOME OR SELFCARE Final Discharge Diagnosis (Prints w/discharge instructions): Chest pain, GERD, stable angina, coronary artery disease, dilated cardiomyopathy, chronic CHF (compensated) Core Measure Documentation - Palliative Care Palliative Care/ Comfort Measures: Not Applicable - Core Measures Any of the following diagnoses?: none Exam - Constitutional Vitals: Temp Pulse Resp BP Pulse Ox 97.8 F 72 19 151/78 95 12/07/20 07:21 12/07/20 07:21 12/07/20 07:21 12/07/20 07:21 12/07/20 07:21 General appearance: Present: no acute distress, well-nourished - EENT Eyes: Present: PERRL ENT: hearing intact, clear oral mucosa - Neck Neck: Present: supple, normal ROM - Respiratory Respiratory effort: normal Respiratory: bilateral: CTA - Cardiovascular Heart Sounds: Present: S1 & S2. Absent: rub, click - Extremities Extremities: pulses symmetrical, No edema Peripheral Pulses: within normal limits - Abdominal General gastrointestinal: Present: soft, non-tender, non-distended, normal bowel sounds Male genitourinary: Present: normal - Integumentary Integumentary: Present: clear, warm, dry - Musculoskeletal Musculoskeletal: gait normal, strength equal bilaterally - Psychiatric Psychiatric: appropriate mood/affect, intact judgment & insight - Neurologic Neurologic: CNII-XII intact, moves all extremities Plan Activity: advance as tolerated Weight Bearing Status: Weight Bear as Tolerated Diet: low fat, low salt Follow up with: HUMBERTO BLUE JR, MD [Primary Care Provider] - 3-5 Days
[2020-12-07] MEDS: FUROSEMIDE 40 MG TAB PO SCH (09:23)
[2020-12-07] MEDS: carvediloL 6.25 MG TAB PO SCH (09:23)
[2020-12-07] MEDS: ASPIRIN EC 325 MG TAB PO SCH (09:23)
[2020-12-07] MEDS: LISINOPRIL 40 MG TAB PO SCH (09:24)
[2020-12-07] MEDS: FAMOTIDINE 20 MG TAB PO SCH (09:24)
--- NOTE | 2020-12-07 10:33 | Progress Note ---
Assessment and Plan Atypical chest pain Hx of coronary artery disease He has had extensive cardiac work with a cardiac cath in 2017 at this hospital and again 6 months ago at [facility] which reports patent RCA stent. No significant residual coronary stenosis. CT angiogram of the chest done in the emergency room describes no pulmonary embolism, and no acute thoracic findings. Hx of Predominantly Nonischemic Cardiomyopathy 05/2020 echocardiogram at [facility] reports persistent dilated cardiomyopathy with an ejection fraction 15-20%. Indwelling cardiac defibrillator (Medtronic) LBBB, chronic Recommendations: Continue guideline directed medical therapy for nonischemic cardiomyopathy and coronary artery disease. 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 Subjective Date of service: 12/07/20 Interval history: A repeat ECG is unchanged from previous. Patient is planned for discharge today. Objective Vital Signs Temp Pulse Resp BP BP Pulse Ox 12/07/20 09:24 72 151/78 12/07/20 09:23 72 151/78 12/07/20 07:21 97.8 F 72 19 151/78 95 12/07/20 03:30 97.7 F 68 18 121/65 90 12/06/20 23:00 60 18 12/06/20 22:30 97.9 F 79 18 143/87 86 12/06/20 21:17 95 H 181/97 12/06/20 19:21 98.2 F 95 H 18 181/97 92 12/06/20 17:47 95 12/06/20 17:42 88 150/96 93 12/06/20 15:50 82 148/103 96 12/06/20 15:46 73 12/06/20 15:44 69 162/95 92 12/06/20 14:51 77 167/71 12/06/20 14:50 77 167/71 12/06/20 14:46 167/71 98 12/06/20 13:25 60 98 12/06/20 12:13 61 157/97 95 12/06/20 11:14 189/105 12/06/20 11:07 84 185/107 12/06/20 11:06 84 185/107 12/06/20 10:58 95 12/06/20 10:57 84 185/107 87 - Physical Examination General: No Apparent Distress HEENT: Positive: PERRL Neck: Positive: trachea midline Cardiac: Positive: Reg Rate and Rhythm Lungs: Positive: Decreased Breath Sounds Neuro: Positive: Grossly Intact Extremities: Absent: edema
[2020-12-07] MEDS: SPIRONOLACTONE 25 MG TAB PO SCH (10:36)
[2020-12-07] MEDS: ONDANSETRON 4 MG/2 ML INJ IV PRN (15:32)
[2020-12-07 17:54] VITALS: BP 97/53
--- NOTE | 2020-12-09 10:17 | Electrocardiograph Report ---
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
--- NOTE | 2020-12-09 10:25 | Electrocardiograph Report ---
[facility] Test Date: 2020-12-06 Test Time: 10:04:03 Pat Name: JATIN BOYCE Department: Room: A478 1 Gender: M Rib Sawyer: PEBBLES : 1965 Requested By: MARCIE CHAPMAN Order Number: [id number] Reading MD: Evon Benedict Measurements Intervals [place] Rate: 67 P: 40 TN: 185 QRS: -39 QRSD: 130 T: 133 QT: 445 QTc: 464 Interpretive Statements Sinus rhythm Atrial premature complex Left bundle branch block Compared to ECG 12/05/2020 18:11:46 Atrial premature complex(es) now present Electronically Signed On 12-09-2020 10:25:12 EDT by Evon Benedict
--- NOTE | 2020-12-09 10:30 | Electrocardiograph Report ---
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
--- NOTE | 2020-12-09 10:35 | Electrocardiograph Report ---
[facility] Test Date: 2020-12-07 Test Time: 08:38:13 Pat Name: JATIN BOYCE Department: Room: A478 1 Gender: M Health Information Administrator: PEBBLES : 1965 Requested By: MARCIE CHAPMAN Order Number: [id number] Reading MD: Evon Benedict Measurements Intervals [place] Rate: 60 P: MD: 232 QRS: -40 QRSD: 134 T: 160 QT: 468 QTc: 468 Interpretive Statements Atrial-paced rhythm Left bundle branch block Compared to ECG 12/06/2020 10:04:03 Sinus rhythm no longer present Electronically Signed On 12-09-2020 10:35:19 EDT by Evon Benedict
== END 2020-12-07 20:00 | disposition home or self-care (01) ==
LOC: ED 17:05 → EEVIPCON 17:05 → 4A 21:40
PROVIDERS: ADMIT Internal Medicine Geriatric Medicine; ATTEND Hospitalist
DX: R07.89 Other chest pain (principal); I42.0 Dilated cardiomyopathy; I11.0 Hypertensive heart disease with heart failure; I50.9 Heart failure, unspecified; J44.9 Chronic obstructive pulmonary disease, unspecified; I25.10 Atherosclerotic heart disease of native coronary artery without angina pectoris; I25.5 Ischemic cardiomyopathy; I44.7 Left bundle-branch block, unspecified; K76.9 Liver disease, unspecified; Z79.82 Long term (current) use of aspirin; Z98.890 Other specified postprocedural states; Z79.899 Other long term (current) drug therapy; Z95.810 Presence of automatic (implantable) cardiac defibrillator; Z87.891 Personal history of nicotine dependence
CPT/HCPCS: 36415; 71046; 71275; 80048; 80053; 80061; 83880; 84484; 85025; 85610; 87641; 93005; 96372; 96374; 96375; 96376; 99285; A9270; G0378; J0360; J1644; J2270; J2405; Q9967

== ENCOUNTER 2021-03-13 00:40 | Observation (INO) | payer MEDICAID, OTHER ==
--- NOTE | 2021-03-13 01:08 | Emergency Department Report ---
ED Chest Pain HPI - General Chief Complaint: Chest Pain Stated Complaint: CHEST PAIN Time Seen by Provider: 03/13/21 00:51 Source: patient - History of Present Illness Initial Comments: 55-year-old male with past medical history notable for COPD, CHF with pacemaker defibrillator per patient EF 10 to 12%, coronary artery disease with stents placed, thoracic abdominal aorta aneurysm measuring 5 cm who presents to the emergency department with complaint of chest pain or shortness of breath. Patient states that he was outside walking and barbecuing when the symptoms started. He notes that he states his pain is approximately 8 out of 10 and feels like pressure in the middle. He also notes that his sides of his face and neck feel numb. MD Complaint: chest pain - Related Data Home Medications Medication Instructions Recorded Confirmed Last Taken Furosemide [Lasix TAB] 40 mg PO BID 03/13/21 03/13/21 Unknown Previous Rx's Medication Instructions Recorded Last Taken Type ISOSORBIDE MONOnitrate [Imdur ER] 30 mg PO QDAY #30 tablet 12/10/16 Unknown Rx Potassium Chloride [K-Dur] 20 meq PO QDAY #30 tablet 12/10/16 Unknown Rx Simvastatin (NF) [Zocor TAB] 40 mg PO QHS #30 tablet 12/10/16 Unknown Rx carvediloL [Coreg] 6.25 mg PO BID #60 tablet 12/10/16 Unknown Rx Famotidine [Pepcid] 20 mg PO BID #28 tablet 12/14/16 Unknown Rx Aspirin EC [Ecotrin] 325 mg PO QDAY tablet 12/07/20 Unknown Rx Spironolactone [Aldactone] 25 mg PO QDAY tablet 12/07/20 Unknown Rx lisinopriL [Zestril TAB] 40 mg PO QDAY tablet 12/07/20 Unknown Rx Allergies Allergy/AdvReac Type Severity Reaction Status Date / Time No Known Allergies Allergy Verified 12/06/16 02:13 Heart Score - HEART Score History: Highly suspicious EKG: Normal Age: 45-65 Risk factors: > 3 risk factors or hx of atherosclerotic disease Troponin: < normal limit HEART Score: 5 - EKG Read Time Time EKG Completed: 01:14 EKG Read Time: 01:19 ED Review of Systems ROS: Stated complaint: CHEST PAIN Other details as noted in HPI Constitutional: denies: chills, fever Eyes: denies: eye discharge ENT: denies: dental pain Respiratory: denies: shortness of breath Cardiovascular: chest pain, dyspnea on exertion ED Past Medical Hx - Past Medical History Hx Hypertension: Yes Hx Heart Attack/AMI: Yes Hx Congestive Heart Failure: Yes Hx Liver Disease: Yes Hx Psychiatric Treatment: Yes Hx COPD: Yes - Surgical History Hx Pacemaker: Yes - Social History Substance Use Type: None - Medications Home Medications: Home Medications Medication Instructions Recorded Confirmed Last Taken Type ISOSORBIDE MONOnitrate [Imdur ER] 30 mg PO QDAY #30 tablet 12/10/16 03/13/21 U nknown Rx Potassium Chloride [K-Dur] 20 meq PO QDAY #30 tablet 12/10/16 03/13/21 Unknown Rx Simvastatin (NF) [Zocor TAB] 40 mg PO QHS #30 tablet 12/10/16 03/13/21 Unknown Rx carvediloL [Coreg] 6.25 mg PO BID #60 tablet 12/10/16 03/13/21 Unknown Rx Famotidine [Pepcid] 20 mg PO BID #28 tablet 12/14/16 03/13/21 Unknown Rx Aspirin EC [Ecotrin] 325 mg PO QDAY tablet 12/07/20 03/13/21 Unknown Rx Spironolactone [Aldactone] 25 mg PO QDAY tablet 12/07/20 03/13/21 Unknown Rx lisinopriL [Zestril TAB] 40 mg PO QDAY tablet 12/07/20 03/13/21 Unknown Rx Furosemide [Lasix TAB] 40 mg PO BID 03/13/21 03/13/21 Unknown History ED Physical Exam - General General appearance: alert, in distress - Head Head exam: Present: atraumatic, normocephalic - Eye Eye exam: Present: normal appearance Pupils: Present: normal accommodation - ENT ENT exam: Present: normal exam - Neck Neck exam: Present: normal inspection - Respiratory Respiratory exam: Present: normal lung sounds bilaterally, respiratory distress. Absent: wheezes, rales, rhonchi - Cardiovascular Cardiovascular Exam: Present: regular rate, normal rhythm, normal heart sounds - GI/Abdominal GI/Abdominal exam: Present: soft, hernia (Umbilical easily reducible). Absent: distended, tenderness - Rectal Rectal exam: Present: deferred - Extremities Exam Extremities exam: Present: normal inspection - Back Exam Back exam: Present: normal inspection - Neurological Exam Neurological exam: Present: alert, oriented X3 - Psychiatric Psychiatric exam: Present: normal affect - Skin Skin exam: Present: warm, dry, intact ED Course Vital Signs 03/13/21 03/13/21 03/13/21 00:40 01:39 01:40 Temperature 98.3 F Pulse Rate 88 180 H 191 H Respiratory 24 Rate Blood Pressure Blood Pressure 162/98 [Left] O2 Sat by Pulse 96 Oximetry 03/13/21 03/13/21 03/13/21 01:42 02:09 02:16 Temperature Pulse Rate 83 90 91 H Respiratory 22 20 Rate Blood Pressure 178/108 178/108 Blood Pressure [Left] O2 Sat by Pulse 98 Oximetry 03/13/21 03/13/21 03/13/21 02:45 03:01 03:31 Temperature Pulse Rate 79 73 79 Respiratory 12 16 17 Rate Blood Pressure 147/74 147/74 Blood Pressure [Left] O2 Sat by Pulse 98 98 98 Oximetry 03/13/21 03/13/21 03/13/21 03:46 04:01 04:31 Temperature Pulse Rate 87 73 93 H Respiratory 16 19 Rate Blood Pressure 171/62 162/75 173/112 Blood Pressure [Left] O2 Sat by Pulse 97 96 Oximetry 03/13/21 05:01 Temperature Pulse Rate 69 Respiratory 12 Rate Blood Pressure 182/101 Blood Pressure [Left] O2 Sat by Pulse 98 Oximetry - Reevaluation(s) Reevaluation #1: 03/13/21 03:50 Discussed initial findings including normal CTAs and EKG and initial stroke. BNP is slightly elevated so patient received IV Lasix. Patient reports his pain has improved to 6 out of 10, blood pressure is also elevated so we will give a dose of nitro and patient is admitted for further management. BLANE score - Blane Score Age > 65: (0) No Aspirin use within the Past 7 Days: (0) No 3 or more CAD Risk Factors: (1) Yes 2 or more Angina events in past 24 hrs: (1) Yes Known CAD with more than 50% Stenosis: (1) Yes Elevated Cardiac Markers: (0) No ST Deviation Greater than 0.5mm: (0) No BLANE Score: 3 ED Medical Decision Making - Lab Data Result diagrams: 03/13/21 04:09 03/13/21 04:09 - EKG Data -: EKG Interpreted by Me EKG shows normal: sinus rhythm Rate: normal No standard instances [place]/QRS: LBBB - Radiology Data Radiology results: report reviewed - Medical Decision Making 55-year-old male who presents emergency department with complaints of chest pain or shortness of breath. He has a history of COPD, CHF, and coronary artery disease with stent placement. He also has a defibrillator pacemaker placed. He states that his defibrillator has not gone off but does note sudden onset chest pain that started when he was outside working on a [employer], also reports some facial numbness although he has no deficits on my neuro exam. Differential includes ACS, CHF exacerbation, COPD exacerbation. On exam he does not have wheezing or rales,. Given this we will also evaluate for thoracic aortic aneurysm rupture as he has a history of aortic aneurysm that measures approximately 5 cm for the patient. Patient will undergo EKG, basic labs, chest x-ray as well as CT imaging of the brain, chest abdomen pelvis. Critical care attestation.: If time is entered above; I have spent that time in minutes in the direct care of this critically ill patient, excluding procedure time. ED Disposition Clinical Impression: Chest pain, Acute exacerbation of CHF (congestive heart failure) Disposition: OP ADMIT IP TO THIS HOSP Is pt being admited?: Yes Does the pt Need Aspirin: No Condition: Stable
--- NOTE | 2021-03-13 01:22 | XRay Report ---
XR chest 1V ap INDICATION / CLINICAL INFORMATION: Chest Pain COMPARISON: December 05 2020 FINDINGS: SUPPORT DEVICES: Transvenous left AICD. HEART / MEDIASTINUM: No significant abnormality. LUNGS / PLEURA: Lungs are clear. Costophrenic sulci are sharp. No pneumothorax. ADDITIONAL FINDINGS: No significant additional findings. IMPRESSION: 1. No acute findings. Signer Name: Willie Stein MD Signed: 03/13/2021 1:18 AM Workstation Name: [id number]
[2021-03-13] MEDS ORDERED: MORPHINE 4 MG/1 ML INJ IV ONE (01:52)
[2021-03-13] MEDS: NITROGLYCERIN 0.4 MG TAB SUBL SL PRN ×2 (02:09→03:46)
[2021-03-13 02:13] LABS: Basophils % (Auto) 0.7 % (0.0-1.8); Eosinophils # (Auto) 0.2 K/mm3 (0.0-0.4); Eosinophils % (Auto) 2.3 % (0.0-4.3); Hematocrit 45.6 % (35.5-45.6); Hemoglobin 15.8 gm/dl (11.8-15.2); Lymphocytes % (Auto) 28.8 % (13.4-35.0); Mean Corpuscular HGB Conc 35 % (32-34); Mean Corpuscular Volume 93 fl (84-94); Monocytes # (Auto) 0.7 K/mm3 (0.0-0.8); Monocytes % (Auto) 10.4 % (0.0-7.3); Platelet Count 139 K/mm3 (140-440); Red Cell Distribution Width 14.3 % (13.2-15.2)
[2021-03-13 02:21] LABS: INR 1.04 (0.87-1.13)
--- NOTE | 2021-03-13 02:23 | Cat Scan Report ---
CT head/brain wo con INDICATION: cp; facial numbness; hx of aortic aneurysm. TECHNIQUE: Routine CT head. All CT scans at this location are performed using CT dose reduction for A JEANNIE by means of automated exposure control. COMPARISON: None. FINDINGS: Intracranial: Shipley-white matter differentiation is maintained. No intracranial hemorrhage. No extra a xial collection. No hydrocephalus. No herniation. Sinuses: Paranasal sinuses and mastoid air cells are essentially clear. Orbits: Globes are intact. Calvarium: No acute fracture. IMPRESSION: 1. No acute intracranial abnormality. Signer Name: Willie Stein MD Signed: 03/13/2021 2:19 AM Workstation Name: [id number]
[2021-03-13 02:38] LABS: Alanine Aminotransferase 36 units/L (7-56); Albumin 4.8 g/dL (3.9-5); BUN/Creatinine Ratio 12; Blood Urea Nitrogen 11 mg/dL (9-20); Calcium 10.2 mg/dL (8.4-10.2); Hemolysis Index 4
--- NOTE | 2021-03-13 02:40 | Cat Scan Report ---
CT angio chest, CT angio abdomen pelvis INDICATION / CLINICAL INFORMATION: cp; facial numbness; hx of aortic aneurysm. TECHNIQUE: CTA of the chest, abdomen and pelvis. MIPS were performed. All CT scans at this location are performe d using CT dose reduction for ALARA by means of automated exposure control. COMPARISON: CTA chest December 05 2020 And oral FINDINGS: VASCULATURE: Mild atherosclerosis. Aorta is normal in caliber. No dissection. No aneurysm. The celiac artery, superior and inferior mesenteric arteries, and bilateral renal arteries are patent . Iliac vessels are patent. CHEST: Lungs: Lung parenchyma is unchanged. Unchanged scarring overlying right rib fractures. No pleural eff usion. No pneumothorax. Heart: Large quantity of multivessel coronary atherosclerotic consultations. Mediastinum: No significant abnormality. ADDITIONAL FINDINGS: Remote healed right rib fractures.. ABDOMEN and PELVIS: Liver: Diffusely nodular contour of the liver. Biliary: No significant abnormality. Spleen: Splenomegaly which is consistent with sequela of portal venous hypertension in the setting of cirrhosis. Pancreas: No significant abnormality. Adrenals: No significant abnormality. Kidneys: No significant abnormality. Lymphatics: No lymphadenopathy. Bowel/Peritoneum: No significant abnormality. Appendix is nonvisualized. No evidence of appendicitis . Pelvis: No significant abnormality. Osseous Structures: No aggressive osseous lesion. Additional Findings: Fat-containing umbilical hernia. No complicating features. IMPRESSION: 1. No aortic aneurysm. No acute abnormality of the chest, abdomen or pelvis. 2. Cirrhosis Signer Name: Willie Stein MD Signed: 03/13/2021 2:36 AM Workstation Name: [email or web address]
[2021-03-13] MEDS ORDERED: FUROSEMIDE 40 MG/4 ML INJ IV ONE (03:16)
[2021-03-13] MEDS ORDERED: ALBUTEROL 2.5 MG/3 ML NEBU IH PRN (03:25)
[2021-03-13] MEDS ORDERED: ACETAMINOPHEN 325 MG TAB PO PRN ×2 (03:25)
[2021-03-13] MEDS ORDERED: NITROGLYCERIN 0.4 MG TAB SUBL SL PRN (03:25)
[2021-03-13] MEDS ORDERED: ONDANSETRON 4 MG/2 ML INJ IV PRN (03:25)
[2021-03-13] MEDS ORDERED: hydrALAZINE 20 MG/1 ML INJ IV PRN (03:32)
--- NOTE | 2021-03-13 03:37 | History and Physical Report ---
History of Present Illness Date of examination: 03/13/21 Date of admission: 03/13/21 Chief complaint: Chest pain shortness of breath History of present illness: 55-year-old male with past medical history of COPD, CHF with pacemaker defibrillator per patient EF 10 to 12%, coronary artery disease with stents placed, thoracic abdominal aorta aneurysm measuring 5 cm who presents to the emergency department with complaint of chest pain or shortness of breath for the last 3 days. Patient states that he was outside walking and barbecuing when the symptoms started. He notes that he states his pain is approximately 8 out of 10 and feels like pressure in the middle. He also notes that his sides of his face and neck feel numb. In the emergency room patient is found to have acute CHF exacerbation. Patient BNP is 1131 Past History Past Medical History: acute MT, COPD, heart failure, hypertension, liver disease, other (Psych disease) Medications and Allergies Allergies Allergy/AdvReac Type Severity Reaction Status Date / Time No Known Allergies Allergy Verified 12/06/16 02:13 Home Medications Medication Instructions Recorded Confirmed Last Taken Type ISOSORBIDE MONOnitrate [Imdur ER] 30 mg PO QDAY #30 tablet 12/10/16 03/13/21 Unknown Rx Potassium Chloride [K-Dur] 20 meq PO QDAY #30 tablet 12/10/16 03/13/21 Unknown Rx Simvastatin (NF) [Zocor TAB] 40 mg PO QHS #30 tablet 12/10/16 03/13/21 Unknown Rx carvediloL [Coreg] 6.25 mg PO BID #60 tablet 12/10/16 03/13/21 Unknown Rx Famotidine [Pepcid] 20 mg PO BID #28 tablet 12/14/16 03/13/21 Unknown Rx Aspirin EC [Ecotrin] 325 mg PO QDAY tablet 12/07/20 03/13/21 Unknown Rx Spironolactone [Aldactone] 25 mg PO QDAY tablet 12/07/20 03/13/21 Unknown Rx lisinopriL [Zestril TAB] 40 mg PO QDAY tablet 12/07/20 03/13/21 Unknown Rx Furosemide [Lasix TAB] 40 mg PO BID 03/13/21 03/13/21 Unknown History Active Meds: Active Medications Nitroglycerin (Nitroglycerin 0.4 Mg Tab Subl) 0.4 mg SL .Q5MIN PRN PRN Reason: Chest Pain Last Admin: 03/13/21 02:09 Dose: 0.4 mg Documented by: Review of Systems Cardiovascular: chest pain, edema, shortness of breath, dyspnea on exertion Respiratory: shortness of breath, dyspnea on exertion Exam - Constitutional Vitals: Temp Pulse Resp BP Pulse Ox 98.3 F 79 12 178/108 98 03/13/21 00:40 03/13/21 02:45 03/13/21 02:45 03/13/21 02:09 03/13/21 02:45 General appearance: Present: no acute distress, well-nourished - EENT Eyes: Present: PERRL ENT: hearing intact, clear oral mucosa - Neck Neck: Present: supple, normal ROM - Respiratory Respiratory effort: normal Respiratory: bilateral: rales - Cardiovascular Heart Sounds: Present: S1 & S2. Absent: rub, click - Extremities Extremities: pulses symmetrical Extremity abnormal: edema Peripheral Pulses: within normal limits - Abdominal General gastrointestinal: Present: soft, non-tender, non-distended, normal bowel sounds Male genitourinary: Present: normal - Integumentary Integumentary: Present: clear, warm, dry - Musculoskeletal Musculoskeletal: gait normal, strength equal bilaterally - Psychiatric Psychiatric: appropriate mood/affect, intact judgment & insight - Neurologic Neurologic: CNII-XII intact, moves all extremities HEART Score - HEART Score EKG: Normal Age: 45-65 Risk factors: > 3 risk factors or hx of atherosclerotic disease Troponin: Troponin T < 0.010 ng/mL (0.00-0.029) 03/13/21 01:37 Troponin: < normal limit Results - Labs CBC & Chem 7: 03/13/21 01:37 03/13/21 01:37 Labs: Laboratory Last Values WBC 6.8 K/mm3 (4.5-11.0) 03/13/21 01:37 RBC 4.90 M/mm3 (3.65-5.03) 03/13/21 01:37 Hgb 15.8 gm/dl (11.8-15.2) H 03/13/21 01:37 Hct 45.6 % (35.5-45.6) 03/13/21 01:37 MCV 93 fl (84-94) 03/13/21 01:37 MCH 32 pg (28-32) 03/13/21 01:37 MCHC 35 % (32-34) H 03/13/21 01:37 RDW 14.3 % (13.2-15.2) 03/13/21 01:37 Plt Count 139 K/mm3 (140-440) L 03/13/21 01:37 Lymph % (Auto) 28.8 % (13.4-35.0) 03/13/21 01:37 [place] % (Auto) 10.4 % (0.0-7.3) H 03/13/21 01:37 Eos % (Auto) 2.3 % (0.0-4.3) 03/13/21 01:37 Baso % (Auto) 0.7 % (0.0-1.8) 03/13/21 01:37 Lymph # (Auto) 2.0 K/mm3 (1.2-5.4) 03/13/21 01:37 [place] # (Auto) 0.7 K/mm3 (0.0-0.8) 03/13/21 01:37 Eos # (Auto) 0.2 K/mm3 (0.0-0.4) 03/13/21 01:37 Baso # (Auto) 0.0 K/mm3 (0.0-0.1) 03/13/21 01:37 Seg Neutrophils % 57.8 % (40.0-70.0) 03/13/21 01:37 Seg Neutrophils # 3.9 K/mm3 (1.8-7.7) 03/13/21 01:37 PT 14.1 Sec. (12.2-14.9) 03/13/21 01:37 INR 1.04 (0.87-1.13) 03/13/21 01:37 Sodium 141 mmol/L (137-145) 03/13/21 01:37 Potassium 4.0 mmol/L (3.6-5.0) 03/13/21 01:37 Chloride 103.7 mmol/L (98-107) 03/13/21 01:37 Carbon Dioxide 24 mmol/L (22-30) 03/13/21 01:37 Anion Gap 17 mmol/L 03/13/21 01:37 BUN 11 mg/dL (9-20) 03/13/21 01:37 Creatinine 0.9 mg/dL (0.8-1.3) 03/13/21 01:37 Estimated GFR > 60 ml/min 03/13/21 01:37 BUN/Creatinine Ratio 12 % 03/13/21 01:37 Glucose 105 mg/dL (75-100) H 03/13/21 01:37 Calcium 10.2 mg/dL (8.4-10.2) 03/13/21 01:37 Magnesium 1.90 mg/dL (1.7-2.3) 03/13/21 01:37 Total Bilirubin 1.50 mg/dL (0.1-1.2) H 03/13/21 01:37 AST 56 units/L (5-40) H 03/13/21 01:37 ALT 36 units/L (7-56) 03/13/21 01:37 Alkaline Phosphatase 76 units/L (35-129) 03/13/21 01:37 Troponin T < 0.010 ng/mL (0.00-0.029) 03/13/21 01:37 NT-Pro-B Natriuret Pep 1131 pg/mL (0-900) H 03/13/21 01:37 Total Protein 7.4 g/dL (6.3-8.2) 03/13/21 01:37 Albumin 4.8 g/dL (3.9-5) 03/13/21 01:37 Albumin/Globulin Ratio 1.8 % 03/13/21 01:37 - Imaging and Cardiology Chest x-ray: report reviewed CT scan - chest: report reviewed Assessment and Plan VTE prophylaxis?: Chemical Plan of care discussed with patient/family: Yes - Patient Problems (1) Acute coronary syndrome Status: Acute Plan to address problem: Admit the patient to the medical telemetry. Aspirin 325 mg p.o. daily. Lipitor 40 mg p.o. daily. Nitroglycerin as needed. Due to the serial cardiac enzyme. We also do echocardiogram. Consult cardiology if needed. We will continue the home medication (2) Acute exacerbation of CHF (congestive heart failure) Status: Acute Plan to address problem: Lasix 40 mg IV every 12 hour. Oxygen by nasal cannula 3 l/min. Fluid restriction. Maintain input output echocardiogram (3) Dilated cardiomyopathy Status: Acute Plan to address problem: Aspirin 325 mg p.o. daily. Lipitor 40 mg p.o. daily. Nitroglycerin as needed. Due to the serial cardiac enzyme. We also do echocardiogram. Consult cardiology if needed. We will continue the home medication (4) Hypertension Status: Acute Plan to address problem: Lisinopril 40 mg p.o. daily. Coreg 6.25 mg p.o. twice daily. Hydralazine 10 mg IV every 6 hours as needed (5) Full code status Status: Acute Plan to address problem: Patient is a full code (6) DVT prophylaxis Status: Acute Plan to address problem: Heparin 5000 units subcu every 8 hours for DVT prophylaxis. Pepcid 20 mg p.o. twice daily for GI prophylaxis
[2021-03-13] MEDS: MORPHINE 4 MG/1 ML INJ IV PRN ×5 (04:03→22:15)
[2021-03-13 04:39] LABS: Basophils % (Auto) 0.8 % (0.0-1.8); Eosinophils # (Auto) 0.2 K/mm3 (0.0-0.4); Hematocrit 45.5 % (35.5-45.6); Hemoglobin 15.9 gm/dl (11.8-15.2); Lymphocytes # (Auto) 1.7 K/mm3 (1.2-5.4); Mean Corpuscular HGB Conc 35 % (32-34); Mean Corpuscular Volume 94 fl (84-94); Monocytes # (Auto) 0.7 K/mm3 (0.0-0.8); Monocytes % (Auto) 11.4 % (0.0-7.3); Platelet Count 115 K/mm3 (140-440); Red Blood Count 4.83 M/mm3 (3.65-5.03); Red Cell Distribution Width 14.5 % (13.2-15.2)
[2021-03-13 04:59] LABS: BUN/Creatinine Ratio 14; Blood Urea Nitrogen 11 mg/dL (9-20); Calcium 9.5 mg/dL (8.4-10.2); Hemolysis Index 8
[2021-03-13] MEDS: FUROSEMIDE 40 MG/4 ML INJ IV SCH ×2 (06:21→17:15)
[2021-03-13] MEDS: HEPARIN 5,000 UNIT/1 ML VIAL SUB-Q SCH ×3 (06:53→22:13)
[2021-03-13] MEDS: IPRATROPIUM/ALBUTEROL SULFATE 3 ML AMPUL.NEB IH SCH ×3 (08:52→20:46)
[2021-03-13] MEDS: ASPIRIN EC 325 MG TAB PO SCH (09:46)
[2021-03-13] MEDS: LISINOPRIL 40 MG TAB PO SCH (09:47)
[2021-03-13] MEDS: SPIRONOLACTONE 25 MG TAB PO SCH (09:47)
[2021-03-13] MEDS: carvediloL 6.25 MG TAB PO SCH ×2 (09:47→22:00)
[2021-03-13] MEDS: FAMOTIDINE 20 MG TAB PO SCH ×2 (09:48→22:13)
[2021-03-13] MEDS: traMADol 50 MG TAB PO PRN (09:52)
[2021-03-13] MEDS ORDERED: POTASSIUM CHLORIDE ER 20 MEQ TAB PO SCH (10:00)
[2021-03-13] MEDS ORDERED: FAMOTIDINE 20 MG TAB PO SCH (10:00)
--- NOTE | 2021-03-13 13:12 | Event Note ---
Date: 03/13/21 Patient seen and examined, continues to have some mild chest pain that is alleviated with morphine. States that his pain has improved. No acute distress. Reviewed the chart, troponins continue to be negative. EKG without any signs of ischemia. I personally spoke with Dr. Yu, management accountant and informed him of the patient's concerns and the patient's history. Of note, patient did say that he has a 5.0 cm aortic aneurysm, presumed thoracic because he is pointing to his belly, that he will see vascular surgery on March 16 to have possible intervention. He will see the patient and determine if any diagnostic studies need to be completed. Echo is pending.
[2021-03-13] MEDS: NITROGLYCERIN 2% OINT 1 GM TP SCH ×2 (13:16→17:10)
[2021-03-13] MEDS: hydrALAZINE 25 MG TAB PO SCH ×2 (13:17→22:00)
--- NOTE | 2021-03-13 21:12 | Consultation ---
DATE OF CONSULTATION: 03/13/2021 HISTORY OF PRESENT ILLNESS: The patient is a 55-year-old male with multiple medical problems including history of COPD, congestive heart failure, coronary artery disease, smoking, cirrhosis, dilated cardiomyopathy and thoracic aortic aneurysm. He presented with a 3-day history of chest pain, ankle swelling, weight gain and recurrent substernal chest heaviness. He did not take nitroglycerin at home. He states that the nitroglycerin in the Emergency Room made his chest pain improved, but it keeps recurring. He states he had stable coronary workup about a year ago. He was hospitalized here for heart failure about 3 months ago. He is known to Dr. Benedict. He states compliance with medications. He does not follow a diet. He has dyspnea on exertion and is not very active. He did not describe any arrhythmias or sleep issues. His blood pressure has been very labile. His weight has increased. He did not describe any chest tenderness or pleuritic component. He does not describe any chest pain related to eating. PAST HISTORY: ALLERGIES: None. MEDICATIONS: See the nurse's list. SOCIAL HISTORY: Smoking, currently a light smoker. Alcohol, no heavy use. PAST SURGICAL HISTORY: None listed so far other than the defibrillator. REVIEW OF SYSTEMS: EF is noted to be 10-12%. He did not describe any allergy symptoms at this time or neurologic symptoms at this time. He did not describe any major arthritis, skin problems or urology symptoms at this time. PHYSICAL EXAMINATION: GENERAL: Well-developed markedly overweight, in no acute distress. Alert, oriented, cooperative. MENTAL STATUS: Normal. EYES, NOSE AND THROAT: Unremarkable. NECK: Reveals JVD. There are no bruits. Neck is supple, no masses. LUNGS: Clear, slightly diminished breath sounds. HEART: Heart sounds distant. Regular rhythm. No rubs, murmurs or gallops are appreciable. ABDOMEN: Soft, nontender, no masses, no clear evidence of ascites. EXTREMITIES: No cyanosis, clubbing or edema. Peripheral pulses are intact. NEUROLOGICAL: Symmetrical. SKIN: Clear. LABORATORY DATA: EKG remarkable for precordial T-wave inversions. No previous EKG available for comparison. Troponins are normal. CAT scan shows no significant aneurysm. IMPRESSION: 1. Severe dilated cardiomyopathy with acute on chronic systolic heart failure. 2. History of coronary artery disease with symptoms consistent with unstable angina and negative troponin so far. 3. Uncontrolled hypertension. 4. History of cirrhosis. 5. History of chronic obstructive pulmonary disease. 6. History of continued smoking. 7. History of thoracic aortic aneurysm; negative CT. 8. Morbid obesity. PLAN: Aggressive therapy for unstable angina and congestive heart failure. Correct hypertension MARITZA. The patient appears to be diuresing, discouraged smoking, consider coronary angiography for continued chest pain at rest, consider IV nitroglycerin for continued chest pain at rest. Overall, prognosis seems guarded with multiorgan failure including heart disease, lung disease and cirrhosis. Thank you for this consultation. TID: [id number] RECEIPT: [id number] TOÑO/ABHIJIT
[2021-03-14] MEDS: MORPHINE 4 MG/1 ML INJ IV PRN (03:05)
[2021-03-14] MEDS: IPRATROPIUM/ALBUTEROL SULFATE 3 ML AMPUL.NEB IH SCH ×4 (03:08→22:11)
[2021-03-14 05:14] LABS: Basophils % (Auto) 0.6 % (0.0-1.8); Eosinophils # (Auto) 0.2 K/mm3 (0.0-0.4); Eosinophils % (Auto) 3.3 % (0.0-4.3); Hematocrit 40.9 % (35.5-45.6); Hemoglobin 14.2 gm/dl (11.8-15.2); Lymphocytes # (Auto) 1.8 K/mm3 (1.2-5.4); Lymphocytes % (Auto) 30.6 % (13.4-35.0); Mean Corpuscular HGB Conc 35 % (32-34); Mean Corpuscular Volume 96 fl (84-94); Monocytes # (Auto) 0.7 K/mm3 (0.0-0.8); Platelet Count 116 K/mm3 (140-440); Red Blood Count 4.28 M/mm3 (3.65-5.03); Red Cell Distribution Width 14.7 % (13.2-15.2)
[2021-03-14 05:43] LABS: BUN/Creatinine Ratio 23; Blood Urea Nitrogen 28 mg/dL (9-20); Hemolysis Index 6
[2021-03-14] MEDS: FUROSEMIDE 40 MG/4 ML INJ IV SCH ×2 (06:45→18:35)
[2021-03-14] MEDS: HEPARIN 5,000 UNIT/1 ML VIAL SUB-Q SCH ×3 (06:45→22:19)
[2021-03-14] MEDS: NITROGLYCERIN 2% OINT 1 GM TP SCH ×4 (06:48→18:35)
[2021-03-14] MEDS: hydrALAZINE 25 MG TAB PO SCH ×3 (06:48→22:18)
[2021-03-14] MEDS: BUDESONIDE 0.5 MG/2 ML NEBU IH SCH ×2 (08:23→22:12)
[2021-03-14] MEDS: ARFORMOTEROL 15 MCG/2 ML NEBU IH SCH ×2 (08:24→22:11)
--- NOTE | 2021-03-14 08:55 | Progress Note ---
Assessment and Plan Atypical chest pain Hx of coronary artery disease He has had extensive cardiac work with a cardiac cath in 2017 at this hospital and in May [address] [facility] which reports patent RCA stent. No significant residual coronary stenosis. CT angiogram of the chest reports no pulmonary embolism, and no acute thoracic findings. Hx of Predominantly Nonischemic Cardiomyopathy 05/[address] [facility] reports persistent dilated cardiomyopathy with an ejection fraction 15-20%. Indwelling cardiac defibrillator (Medtronic) LBBB, chronic Recommend: Continue guideline directed medical therapy for nonischemic cardiomyopathy and coronary artery disease. Once discharge, patient will follow up with his primary director day care center, Dr Vieira, on March 23, 2021 at 350 pm. Subjective Date of service: 03/14/21 Interval history: Patient is resting in bed and appears comfortable. Objective Vital Signs Temp Pulse Pulse Resp Resp BP Pulse Ox 03/14/21 08:41 68 03/14/21 08:25 95 03/14/21 05:50 97.5 F L 68 20 94/47 93 03/14/21 03:08 75 18 03/14/21 01:38 98.0 F 74 20 104/41 93 03/13/21 22:00 60 18 94/52 03/13/21 21:14 97.8 F 60 20 94/52 96 03/13/21 20:51 97 03/13/21 20:43 82 18 03/13/21 16:01 97.9 F 61 20 98/57 94 03/13/21 13:31 61 20 03/13/21 11:16 71 99/58 94 03/13/21 09:18 80 - Physical Examination General: No Apparent Distress HEENT: Positive: PERRL Neck: Positive: trachea midline Cardiac: Positive: Other (atrial paced) Lungs: Positive: Decreased Breath Sounds Neuro: Positive: Grossly Intact - Labs and Meds CBC 03/14/21 Range/Units 04:18 WBC 6.0 (4.5-11.0) K/mm3 RBC 4.28 (3.65-5.03) M/mm3 Hgb 14.2 (11.8-15.2) gm/dl Hct 40.9 (35.5-45.6) % Plt Count 116 L (140-440) K/mm3 Lymph # (Auto) 1.8 (1.2-5.4) K/mm3 [place] # (Auto) 0.7 (0.0-0.8) K/mm3 Eos # (Auto) 0.2 (0.0-0.4) K/mm3 Baso # (Auto) 0.0 (0.0-0.1) K/mm3 Comprehensive Metabolic Panel 03/14/21 Range/Units 04:18 Sodium 139 (137-145) mmol/L Potassium 3.8 (3.6-5.0) mmol/L Chloride 99.4 (98-107) mmol/L Carbon Dioxide 26 (22-30) mmol/L BUN 28 H (9-20) mg/dL Creatinine 1.2 (0.8-1.3) mg/dL Glucose 113 H (75-100) mg/dL Calcium 9.0 (8.4-10.2) mg/dL
[2021-03-14] MEDS: SPIRONOLACTONE 25 MG TAB PO SCH (09:30)
[2021-03-14] MEDS: ASPIRIN EC 325 MG TAB PO SCH (09:30)
[2021-03-14] MEDS: carvediloL 6.25 MG TAB PO SCH ×2 (09:30→22:17)
[2021-03-14] MEDS: LISINOPRIL 40 MG TAB PO SCH (09:30)
[2021-03-14] MEDS: FAMOTIDINE 20 MG TAB PO SCH ×2 (09:30→22:19)
[2021-03-14] MEDS: traMADol 50 MG TAB PO PRN ×2 (09:30→18:35)
[2021-03-14] MEDS ORDERED: FUROSEMIDE 40 MG/4 ML INJ IV SCH (14:00)
--- NOTE | 2021-03-14 16:11 | Discharge Summary ---
Providers - Providers Date of Admission: 03/13/21 04:49 Date of discharge: 03/15/21 Attending physician: PAULA BRITO 03/13/21 Consult to Cardiac Rehabilitation [CONS] Routine Reason For Exam: Phase I 03/13/21 08:45 Consult to Physician [CONS] Routine Comment: Consulting Provider: RENNY CORLEY Physician Instructions: Reason For Exam: acute chest pain Primary care physician: REFERRAL RN Hospitalization Condition: Stable Hospital course: 55-year-old man with a history of chronic respiratory failure on 4 L home O2, two-vessel coronary artery disease s/p stent placement, dilated nonischemic cardiomyopathy presents to the hospital at this time with atypical, poorly characterized and nonexertional chest pain. Work-up in the hospital including serial EKGs and cardiac enzymes are unremarkable. Echocardiogram on this presentation shows a moderate severity left ventricular dysfunction with ejection fraction 35 to 40%. This appears to be a marked improvement in left ventricular systolic function which was historically estimated at 10 to 15%. [address] of the chest, abdomen and pelvis on this presentation, all of which showed no aortic aneurysm. Cardiology was consulted and recommended no extra cardiac intervention at this time. Patient appeared to be cardiac vargas stable. Patient was then discharged home in stable condition with outpatient follow-up. Disposition: DC-01 TO HOME OR SELFCARE Final Discharge Diagnosis (Prints w/discharge instructions): Atypical chest pain likely due to stable angina versus GERD. Hx of coronary artery disease. Hx of Predominantly Nonischemic Cardiomyopathy with an ejection fraction 15-20%. Indwelling cardiac defibrillator (Medtronic). LBBB, chronic Time spent for discharge: 34 minutes Core Measure Documentation - Palliative Care Palliative Care/ Comfort Measures: Not Applicable - Core Measures Any of the following diagnoses?: none Exam - Physical Exam Narrative exam: General appearance: Present: no acute distress, well-nourished - EENT Eyes: Present: PERRL ENT: hearing intact, clear oral mucosa - Neck Neck: Present: supple, normal ROM - Respiratory Respiratory effort: normal Respiratory: bilateral: rales - Cardiovascular Heart Sounds: Present: S1 & S2. Absent: rub, click - Extremities Extremities: pulses symmetrical Extremity abnormal: edema Peripheral Pulses: within normal limits - Abdominal General gastrointestinal: Present: soft, non-tender, non-distended, normal bowel sounds Male genitourinary: Present: normal - Integumentary Integumentary: Present: clear, warm, dry - Musculoskeletal Musculoskeletal: gait normal, strength equal bilaterally - Psychiatric Psychiatric: appropriate mood/affect, intact judgment & insight - Neurologic Neurologic: CNII-XII intact, moves all extremities - Constitutional Vitals: Temp Pulse Resp BP Pulse Ox 97.7 F 65 20 120/62 92 03/14/21 11:37 03/14/21 13:33 03/14/21 13:33 03/14/21 11:37 03/14/21 11:37 Plan Activity: advance as tolerated Weight Bearing Status: Weight Bear as Tolerated Diet: low fat, low salt Follow up with: PRIMARY CARE, [Primary Care Provider] - 7 Days
[2021-03-15] MEDS: traMADol 50 MG TAB PO PRN ×2 (01:14→11:29)
[2021-03-15] MEDS: IPRATROPIUM/ALBUTEROL SULFATE 3 ML AMPUL.NEB IH SCH ×3 (01:30→13:42)
[2021-03-15] MEDS: hydrALAZINE 25 MG TAB PO SCH (05:27)
[2021-03-15] MEDS: FUROSEMIDE 40 MG/4 ML INJ IV SCH (05:27)
[2021-03-15] MEDS: HEPARIN 5,000 UNIT/1 ML VIAL SUB-Q SCH ×2 (05:27→14:11)
[2021-03-15] MEDS: NITROGLYCERIN 2% OINT 1 GM TP SCH ×3 (05:28→14:11)
[2021-03-15] MEDS: BUDESONIDE 0.5 MG/2 ML NEBU IH SCH (08:58)
[2021-03-15] MEDS: ARFORMOTEROL 15 MCG/2 ML NEBU IH SCH (08:58)
--- NOTE | 2021-03-15 09:23 | Progress Note ---
Assessment and Plan Atypical chest pain Hx of coronary artery disease He has had extensive cardiac work with a cardiac cath in 2017 at this hospital and in May 2020 at [facility] which reports patent RCA stent. No significant residual coronary stenosis. CT angiogram of the chest reports no pulmonary embolism, and no acute thoracic findings. Hx of Predominantly Nonischemic Cardiomyopathy 05/2020 echocardiogram at [facility] reports persistent dilated cardiomyopathy with an ejection fraction 15-20%. Indwelling cardiac defibrillator (Medtronic) LBBB, chronic Recommend: Continue guideline directed medical therapy for nonischemic cardiomyopathy and coronary artery disease. Once discharge, patient will follow up with his primary haulage engine operator, Dr Vieira, on March 23, 2021 at 350 pm. Subjective Date of service: 03/15/21 Interval history: Patient is resting in bed and appears comfortable. No cardiac complaints. Discharge planning is in process. Objective Vital Signs Temp Pulse Pulse Resp Resp BP BP 03/15/21 08:59 03/15/21 08:58 64 19 03/15/21 07:48 97.7 F 63 20 98/61 03/15/21 04:07 97.8 F 64 18 135/78 03/15/21 02:14 20 03/15/21 01:14 20 03/14/21 23:58 98.0 F 78 18 117/68 03/14/21 22:18 68 119/72 03/14/21 22:17 68 119/72 03/14/21 22:09 03/14/21 22:00 03/14/21 19:35 20 03/14/21 19:31 98.6 F 68 18 119/72 03/14/21 15:32 97.8 F 61 20 105/53 03/14/21 13:33 65 20 03/14/21 11:37 97.7 F 60 20 120/62 Pulse Ox 03/15/21 08:59 98 03/15/21 08:58 03/15/21 07:48 95 03/15/21 04:07 92 03/15/21 02:14 03/15/21 01:14 03/14/21 23:58 96 03/14/21 22:18 03/14/21 22:17 03/14/21 22:09 96 03/14/21 22:00 99 03/14/21 19:35 03/14/21 19:31 99 03/14/21 15:32 94 07/06/21 13:33 03/14/21 11:37 92 - Physical Examination General: No Apparent Distress HEENT: Positive: PERRL Neck: Positive: trachea midline Cardiac: Positive: Reg Rate and Rhythm Lungs: Positive: Decreased Breath Sounds Neuro: Positive: Grossly Intact Extremities: Absent: edema
[2021-03-15] MEDS: FAMOTIDINE 20 MG TAB PO SCH (11:29)
[2021-03-15] MEDS: SPIRONOLACTONE 25 MG TAB PO SCH (11:29)
[2021-03-15] MEDS: LISINOPRIL 40 MG TAB PO SCH (11:29)
[2021-03-15] MEDS: ASPIRIN EC 325 MG TAB PO SCH (11:29)
[2021-03-15] MEDS: carvediloL 6.25 MG TAB PO SCH (11:29)
[2021-03-15 12:54] VITALS: BP 111/56
--- NOTE | 2021-03-15 15:37 | Progress Note ---
Assessment and Plan --Atypical chest pain likely due to stable angina versus GERD. --Hx of coronary artery disease. --Hx of Nonischemic Cardiomyopathy with an ejection fraction 15-20%. --s/p Indwelling cardiac defibrillator (Medtronic). --Morbid obesity -Chronic respiratory failure on 4 L nasal cannula Plan: Continue aspirin statin and beta-anthony along with diuresis Cardiac diet, monitor ins and outs, continue to monitor vitals, nebulizer breath ing treatment as needed Cardiology is following and cleared patient for discharge, continue PPI Patient is medically stable for discharge but patient is unable to get discharged due to social issue _Case fish farm manager consulted and working on his placement/discharge Continue current management and plan Subjective Date of service: 03/15/21 Interval history: Patient seen and examined. Medical records and medication list reviewed. No acute event overnight noted by the RN. Patient denies any chest pain, resting on 4 L nasal cannula. Patient is tolerating diet. Discussed plan of care at bedside with patient. Objective - Exam Narrative Exam: General appearance: Present: no acute distress, well-nourished/obese - EENT Eyes: Present: PERRL ENT: hearing intact, clear oral mucosa - Neck Neck: Present: supple, normal ROM - Respiratory Respiratory effort: normal Respiratory: bilateral: rales - Cardiovascular Heart Sounds: Present: S1 & S2. Absent: rub, click - Extremities Extremities: pulses symmetrical Extremity abnormal: edema Peripheral Pulses: within normal limits - Abdominal General gastrointestinal: Present: soft, non-tender, non-distended, normal bowel sounds Male genitourinary: Present: normal - Integumentary Integumentary: Present: clear, warm, dry - Musculoskeletal Musculoskeletal: gait normal, strength equal bilaterally - Psychiatric Psychiatric: appropriate mood/affect, intact judgment & insight - Neurologic Neurologic: CNII-XII intact, moves all extremities - Constitutional Vitals: Vital Signs - 12hr 03/15/21 03/15/21 03/15/21 04:07 07:48 08:58 Temperature 97.8 F 97.7 F Pulse Rate 64 63 Pulse Rate [ 64 Bilateral] Respiratory 18 20 Rate Respiratory 19 Rate [Bilateral ] Blood Pressure 135/78 98/61 O2 Sat by Pulse 92 95 Oximetry 03/15/21 03/15/21 03/15/21 08:59 12:45 13:42 Temperature 97.3 F L Pulse Rate 62 Pulse Rate [ 74 Bilateral] Respiratory 20 Rate Respiratory 16 Rate [Bilateral ] Blood Pressure 111/56 O2 Sat by Pulse 98 93 Oximetry - Labs CBC & Chem 7: 03/14/21 04:18 03/14/21 04:18 HEART Score - HEART Score EKG: Normal Age: 45-65 Risk factors: > 3 risk factors or hx of atherosclerotic disease Troponin: Troponin T < 0.010 ng/mL (0.00-0.029) 03/13/21 11:15 Troponin: < normal limit
--- NOTE | 2021-03-15 17:41 | Electrocardiograph Report ---
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
--- NOTE | 2021-03-15 17:42 | Electrocardiograph Report ---
[facility] Test Date: 2021-03-13 Test Time: 08:12:59 Pat Name: JATIN BOYCE Department: Room: A453 1 Gender: M Feeder Catcher: PEBBLES : 1965 Requested By: CHRIS HEWITT Order Number: [id number] Reading MD: Evon Benedict Measurements Intervals [place] Rate: 69 P: -88 [place]: 171 QRS: -53 QRSD: 121 T: 196 QT: 430 QTc: 462 Interpretive Statements Ectopic atrial rhythm Incomplete left bundle branch block Compared to ECG 03/13/2021 01:14:59 Ectopic atrial rhythm now present Electronically Signed On 03-15-2021 17:42:10 EDT by Evon Benedict
--- NOTE | 2021-03-15 17:55 | Electrocardiograph Report ---
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
--- NOTE | 2021-03-19 08:37 | Progress Note ---
Assessment and Plan --Atypical chest pain likely due to stable angina versus GERD. --Hx of coronary artery disease. --Hx of Nonischemic Cardiomyopathy with an ejection fraction 15-20%. --s/p Indwelling cardiac defibrillator ([employer]). --Morbid obesity -Chronic respiratory failure on 4 L nasal cannula Plan: Continue aspirin statin and beta-anthony along with diuresis Cardiac diet, monitor ins and outs, continue to monitor vitals, nebulizer breath ing treatment as needed Cardiology is following and cleared patient for discharge, continue PPI Patient is medically stable for discharge but patient is unable to get discharged due to social issue _Case manager dairy consulted and working on his placement/discharge Continue current management and plan Subjective Date of service: 03/14/21 Interval history: Patient seen and examined. Medical records and medication list reviewed. No acute event overnight noted by the RN. Patient denies any chest pain, resting on 4 L nasal cannula. Patient is tolerating diet. Discussed plan of care at bedside with patient. Objective - Exam Narrative Exam: General appearance: Present: no acute distress, well-nourished/obese - EENT Eyes: Present: PERRL ENT: hearing intact, clear oral mucosa - Neck Neck: Present: supple, normal ROM - Respiratory Respiratory effort: normal Respiratory: bilateral: rales - Cardiovascular Heart Sounds: Present: S1 & S2. Absent: rub, click - Extremities Extremities: pulses symmetrical Extremity abnormal: edema Peripheral Pulses: within normal limits - Abdominal General gastrointestinal: Present: soft, non-tender, non-distended, normal bowel sounds Male genitourinary: Present: normal - Integumentary Integumentary: Present: clear, warm, dry - Musculoskeletal Musculoskeletal: gait normal, strength equal bilaterally - Psychiatric Psychiatric: appropriate mood/affect, intact judgment & insight - Neurologic Neurologic: CNII-XII intact, moves all extremities - Labs CBC & Chem 7: 03/14/21 04:18 03/14/21 04:18 HEART Score - HEART Score EKG: Normal Age: 45-65 Risk factors: > 3 risk factors or hx of atherosclerotic disease Troponin: Troponin T < 0.010 ng/mL (0.00-0.029) 03/13/21 11:15 Troponin: < normal limit
== END 2021-03-15 16:48 | disposition home or self-care (01) ==
LOC: ED 00:40 → 4A 04:49
PROVIDERS: ADMIT Hospitalist; ATTEND Internal Medicine
DX: I24.9 Acute ischemic heart disease, unspecified (principal); I11.0 Hypertensive heart disease with heart failure; I50.9 Heart failure, unspecified; J96.10 Chronic respiratory failure, unspecified whether with hypoxia or hypercapnia; I42.0 Dilated cardiomyopathy; I25.2 Old myocardial infarction; J44.9 Chronic obstructive pulmonary disease, unspecified; K76.9 Liver disease, unspecified; K74.60 Unspecified cirrhosis of liver; E66.01 Morbid (severe) obesity due to excess calories; I42.8 Other cardiomyopathies; R51.9 Headache, unspecified; Z79.82 Long term (current) use of aspirin; Z95.0 Presence of cardiac pacemaker; Z68.35 Body mass index [BMI] 35.0-35.9, adult
CPT/HCPCS: 36415; 70450; 71045; 71275; 74174; 80048; 80053; 83735; 83880; 84484; 85025; 85610; 93005; 93306; 94640; 96372; 96374; 96375; 96376; 99285; A9270; G0378; J0360; J1644; J1940; J2270; Q9967